=== PATIENT | male | born 1975 | race Caucasian/White ===

== ENCOUNTER 2019-08-19 17:53 | Outpatient (CLI) | payer BC, SELFPAY ==
--- NOTE | 2019-08-19 | XR_ITS ---
WS: [id number] RIGHT TIBIA-FIBULA 2 VIEWS HISTORY: RIGHT LEG INJURY COMPARISON: None available. No fracture, dislocation or joint abnormality. Fragmented tibial tubercle with no adjacent inflammatory changes. This is not an acute process. There is mild inflammatory soft tissue swelling over the proximal tibia. XR/XR tibia fibula RT 2V [id number] IMPRESSION: Soft tissue edema over the proximal tibia with no fracture.
== END 2019-08-19 17:54 | disposition home or self-care (01) ==
LOC: RADOUTREAD 08-20 11:04
PROVIDERS: Family Provider Family Medicine; PCP Family Medicine; Visit Provider Nurse Practitioner
DX: S89.91XA Unspecified injury of right lower leg, initial encounter (principal); W22.8XXA Striking against or struck by other objects, initial encounter; R60.9 Edema, unspecified

== ENCOUNTER → 2020-08-26 09:56 | Outpatient (BNVA) | payer BC, SELFPAY | PROVIDERS: Family Provider Family Medicine; PCP Family Medicine; Referring Provider Family Medicine; Visit Provider Orthopaedic Surgery | DX: M54.9 Dorsalgia, unspecified (principal); M47.892 Other spondylosis, cervical region | CPT/HCPCS: 72050 ==

== ENCOUNTER 2020-09-13 17:14 | Outpatient (CLI) | payer BC, SELFPAY ==
--- NOTE | 2020-09-13 17:30 | MR_ITS ---
WS: [id number] MRI CERVICAL SPINE NONCONTRAST HISTORY: M50.90 - Cervical disc disorder, unspecified, unspecified cervical region COMPARISON: 01/06/2018 Technique: Multiplanar, multisequence noncontrast imaging of the cervical spine. Mild straightening of the normal cervical lordosis. Posterior alignment is normal. No fractures or ma rrow edema. Mild disc desiccation throughout the cervical spine. Signal within the cervical cord is normal. Visualized posterior fossa is unremarkable. Craniocervical junction, C1 and C2 relationship, odontoid process and soft tissues are normal. C2-C3: Normal. C3-C4: Mild annular disc bulging with a shallow central disc protrusion and small foraminal osteophyt es. Very mild encroachment upon the ventral thecal sac. No significant stenosis. C4-C5: Moderate annular disc bulging and mild osteophytic ridging. Small central disc protrusion with foraminal osteophytes. There is mild central stenosis. No foraminal stenosis. C5-C6: Moderate annular disc bulging and osteophytic ridging. More focal proximal disc osteophyte com plex on the RIGHT. Moderate central and moderate bilateral foraminal stenosis, RIGHT greater than LEF T. C6-C7: Diffuse annular disc bulging and osteophytic ridging. Small central disc protrusion with encro achment upon the ventral thecal sac. Mild central stenosis with mild bilateral foraminal stenosis. C7-T1: LEFT foraminal osteophyte causing mild encroachment upon the nerve root. Paraspinal soft tissue are normal. MR/MR cervical spin wo con* [id number] IMPRESSION: 1. Moderate central and bilateral foraminal stenosis, RIGHT greater than LEFT at C5-6. 2. Mild central and bilateral foraminal stenosis at C6-7. 3. Areas of stenosis are very similar to the prior study from 01/06/2018 withou t obvious progression. Stenoses due to combination of disc and osteophyte disea se.
== END 2020-09-13 17:15 | disposition home or self-care (01) ==
LOC: RADSHAW 17:17
PROVIDERS: PCP Family Medicine; Visit Provider Orthopaedic Surgery
DX: M50.90 Cervical disc disorder, unspecified, unspecified cervical region (principal); M48.02 Spinal stenosis, cervical region
CPT/HCPCS: 72141

== ENCOUNTER → 2020-10-03 08:04 | Outpatient (BNVA) | payer BC, SELFPAY | PROVIDERS: PCP Family Medicine; Referring Provider Orthopaedic Surgery; Visit Provider Specialist | DX: G56.03 Carpal tunnel syndrome, bilateral upper limbs (principal); G56.23 Lesion of ulnar nerve, bilateral upper limbs; M47.22 Other spondylosis with radiculopathy, cervical region; R20.2 Paresthesia of skin; R20.0 Anesthesia of skin; Z87.891 Personal history of nicotine dependence | CPT/HCPCS: 95886; 95910; 99202 ==

== ENCOUNTER → 2020-10-12 15:21 | Outpatient (BNVA) | payer BC, SELFPAY | PROVIDERS: PCP Family Medicine; Referring Provider Orthopaedic Surgery; Visit Provider Specialist | DX: G56.23 Lesion of ulnar nerve, bilateral upper limbs (principal); G56.03 Carpal tunnel syndrome, bilateral upper limbs | CPT/HCPCS: 73110 ==

== ENCOUNTER → 2020-10-20 13:07 | Outpatient (BNVA) | payer BC, SELFPAY | PROVIDERS: PCP Family Medicine; Visit Provider Specialist | DX: Z20.828 Contact with and (suspected) exposure to other viral communicable diseases (principal) | CPT/HCPCS: 87635 ==

== ENCOUNTER 2020-10-25 06:39 | Day surgery (SDC) | payer BC, SELFPAY ==
[2020-10-24 17:38] VITALS: BMI 35.3
[2020-10-25] VITALS (8 sets, daily range): BP systolic 111–152; BP diastolic 85–108; PULSE 80–102; RESP 12–18; TEMP 36.3–36.9; O2SAT 96–100
--- NOTE | 2020-10-25 07:10 | W.PM.OPSUD ---
Surgery/Procedure H&P Update DATE OF PROCEDURE: October 25, 2020 DATE H&P PERFORMED: 10/12/20 H&P UPDATE INFORMATION: I have reviewed H&P completed within last 30 days, I have examined patient prior to procedure and No changes to prior documentation PREOP DIAGNOSIS: Right carpal tunnel syndrome PLANNED PROCEDURE: Operation Date: 10/25/20 08:20 Proposed Procedures p Right Carpal Tunnel Release 14917 G56.02(Not Applicable) - Mariama Garcia MD Related Problem List Diagnoses (1) Carpal tunnel syndrome on right:
[2020-10-25] MEDS: sodium chloride 0.9% 1,000 ML 30 ML IV (07:53)
[2020-10-25] MEDS: CELEcoxib 200 mg Capsule 400 MG PO (07:57)
--- NOTE | 2020-10-25 07:59 | ANES.PREANE2 ---
Pre-Anesthetic Assessment Pre-Anesthetic Assessment: Height/Weight: Height 1.88 m Weight 124.738 kg Temp Pulse Resp BP Pulse Ox 97.4 F L 102 H 18 116/95 96 10/25/20 07:33 10/25/20 07:33 10/25/20 07:33 10/25/20 07:33 10/25/20 07:33 Preop Diagnosis: Right carpal tunnel syndrome Proposed Procedure: Operation Date: 10/25/20 08:20 Proposed Procedures p Carpal Tunnel Release [id number] G56.02(Not Applicable) - Mariama Garcia MD Was Beta Hermelinda taken within 24 hours: N/A Was Clonidine taken within 24 hours: N/A Last intake: Intake Last Liquid Date 10/25/20 Last Liquid Time 18:00 Last Solid Date 10/25/20 Last Solid Time 21:30 Social: Social History: No alcohol and No tobacco Exam: Pre-Anes Outpt Exam: alert, oriented x 3, clear to auscultation bilaterally and regular rate & rhythm Airway: Submandibular: WNL Cervical ROM: WNL MP: 2 Dentition: Full Pulmonary: Pulmonary: Sleep apnea CV/HEM: CV/HEM: HTN Metabolic: Metabolic: Morbid obesity and Thyroid Musc/skel: Musc/skel: Lower Back Pain Comments: Chronic pain/nerve stimulator Neuropsych: Neuropsych: Anxiety and Neuropathy Anesthetic Plan: ASA status: 3 Anesthesia: MAC and Regional (specify below) (Monet wong) Risk of > 500 ml blood loss (7ml/kg in children): No Meds/Allergies Current Medications: Current Medications Generic Name Dose Route Start Last Admin Trade Name Freq PRN Reason Stop Dose Admin Sodium Chloride 1,000 mls @ 30 ml s/hr 10/25/20 07:30 10/25/20 07:53 Sodium Chloride 0.9% IV 10/26/20 07:29 30 mls/hr .Q24H FERMIN Administration PFSH Anesthesia PFSH: Medical History Hypertension Hypothyroid Surgical History History of hand surgery left hand 2000 Previous back surgery L4/5 Social History Smoking and tobacco status: former smoker Alcohol intake: current Alcohol intake frequency: holidays/special occasions only Data Anesthesia Cardiac Studies: No Data to Display
--- NOTE | 2020-10-25 08:21 | W.PM.OPSUD ---
Surgery/Procedure H&P Update DATE OF PROCEDURE: October 25, 2020 DATE H&P PERFORMED: 10/12/20 H&P UPDATE INFORMATION: I have reviewed H&P completed within last 30 days, I have examined patient prior to procedure and No changes to prior documentation PREOP DIAGNOSIS: Right carpal tunnel syndrome PLANNED PROCEDURE: Operation Date: 10/25/20 08:20 Proposed Procedures p Carpal Tunnel Release 39594 G56.02(Not Applicable) - Mariama Garcia MD Related Problem List Diagnoses (1) Carpal tunnel syndrome on right:
--- NOTE | 2020-10-25 09:31 | P.OP_ITS ---
Operative Report Date of procedure: October 25, 2020 Pre-op Diagnosis: Right carpal tunnel syndrome Post-op diagnosis: same Post-op Findings: Severe compression across the carpal canal Procedure Done: Right Carpal Tunnel Release Specimens removed/disposition: None Pathology: none sent Surgeon: Mariama Garcia Anesthesia: MAC (With Monet block) Estimated blood loss (mL): 5 Tourniquet time (min): 44 Tourniquet time: At 250 mmHg IV fluids (mL): 600 Urine output (mL): 0 Urine output: No Sanchez Complications: None Findings: Anatomic findings consistent with carpal tunnel syndrome Condition: stable Disposition: PACU (Then to same-day surgery for discharge to home) Brief History: This 45-year-old gentleman presented with symptomatic complaints and electrodiagnostic studies consistent with carpal tunnel syndrome bilaterally. The right was worse than the left, we elected to proceed with right carpal tunnel release. Risks and complications were discussed. Consents were signed preoperatively. Questions were answered. Procedure: The patient was brought to the operating theater. The patient had a [place] block with MAC. The tourniquet was elevated to 250 mmHg for a total tourniquet time of 44 minutes. The patient was also given Ancef 2 g preoperatively. The arm was then prepped and draped with DuraPrep in usual fashion with the arm draped free. A surgical pause was performed. At the time, the surgical pause, we confirmed the site and side of surgery. We also confirmed the patient's identity, appropriate and timely administration of preoperative antibiotics and preoperative surgical markings. An incision was then made along the thenar crease. The incision crossed the wrist joint in a curvilinear fashion. Dissection continued through skin and soft tissues using a scalpel. The palmaris longus was identified along with the tra nsverse carpal ligament. Each of these was released carefully to avoid injury to the median nerve. We were able to dissect gently into the carpal canal which was noted to be quite tight with significant compression across the median nerve. Transverse carpal ligament was quite thickened. The nerve was visualized and was an hourglass shape with purplish discoloration. The canal was subsequently palpated to assure there was no bony encroachment upon the canal. There was a quite thickened fibrous tissue within the canal, and this was opened longitudinally as well. The canal was then palpated distally and proximally to assure that my small finger was passed easily without impingement. Finding this to be so, attention was directed to closure. The wound was irrigated with ropivacaine plain. It was then closed with 3-0 nylon in an interrupted mattress fashion. Sterile dressing was then placed consisting of Xeroform gauze, fluffed fluffs, sterile soft roll, a volar splint, and an James wrap. The tourniquet was released after 44 minutes. There were no complications. There were no specimens. The procedure was well tolerated. Plan is the patient will be discharged home. Associated Problem List Diagnoses (1) Carpal tunnel syndrome on right:
--- NOTE | 2020-10-25 09:37 | SUR.PHASEI ---
PT DOES NOT AWAKE TO TOUCH, GOOD RESP EFFORT WITH ORAL AIRWAY IN PLACE, VSS IV PATENT RT HAND DRESSING D/I ELEVATED ON CHEST, DISTAL FINGERS PINK WARM WITH CAP REFILL LESS THAN 3 SECONDS.
--- NOTE | 2020-10-25 09:46 | SUR.PHASEI ---
PT AWAKES ORAL AIRWAY OUT, GOOD RESP NOTED PT VERBALLY DENIES PAIN AND NAUSEA. PT ON RA TRIAL.
--- NOTE | 2020-10-25 14:09 | ANE.PACU2 ---
Inpatient post-anesthesia follow up: Airway intact: Yes Vital signs: Temperature 97.3 F Pulse Rate 80 Respiratory Rate 18 Blood Pressure 130/99 Pulse Oximetry 97 Oxygen Delivery Me thod Room Air Oxygen Flow Rate 8 Fraction of Inspir ed Oxygen Hydration adequate: Yes Nausea and vomiting: No Pain level: 1 Mental status: Baseline
== END 2020-10-25 10:27 | disposition home or self-care (01) ==
PROVIDERS: PCP Family Medicine; Visit Provider Specialist
PROC: (CPT 64721; principal; 2020-10-25 08:10)
DX: G56.01 Carpal tunnel syndrome, right upper limb (principal); G47.30 Sleep apnea, unspecified; I10 Essential (primary) hypertension; E66.01 Morbid (severe) obesity due to excess calories; Z68.35 Body mass index [BMI] 35.0-35.9, adult; E03.9 Hypothyroidism, unspecified; Z87.891 Personal history of nicotine dependence
CPT/HCPCS: 64721; 96365; J0131; J0690; J2250; J2704; J3490; J7030

== ENCOUNTER → 2020-11-07 15:38 | Outpatient (BNVA) | payer BC, SELFPAY | PROVIDERS: PCP Family Medicine; Visit Provider Specialist | DX: G56.03 Carpal tunnel syndrome, bilateral upper limbs (principal) | CPT/HCPCS: 87635 ==

== ENCOUNTER 2020-11-11 06:51 | Day surgery (SDC) | payer BC, SELFPAY ==
[2020-11-10 12:12] VITALS: BMI 34.8
[2020-11-11] VITALS (10 sets, daily range): BP systolic 125–163; BP diastolic 100–116; PULSE 75–96; RESP 12–20; TEMP 36.3–36.6; O2SAT 97–100
--- NOTE | 2020-11-11 07:31 | ANES.PREANE2 ---
Pre-Anesthetic Assessment Pre-Anesthetic Assessment: Height/Weight: Height 1.89 m Weight 124.738 kg Temp Pulse Resp BP Pulse Ox 97.4 F L 96 16 151/110 97 11/11/20 07:15 11/11/20 07:15 11/11/20 07:15 11/11/20 07:15 11/11/20 07:15 Preop Diagnosis: Left carpal tunnel syndrome Proposed Procedure: Operation Date: 11/11/20 08:25 Proposed Procedures p left Carpal Tunnel Release 26690 G56.00(Left) - Mariama Garcia MD Familial anesthetic complications: none Was Beta Hermelinda taken within 24 hours: N/A Was Clonidine taken within 24 hours: N/A Last intake: Intake Last Liquid Date 11/10/20 Last Liquid Time 21:30 Last Solid Date 11/10/20 Last Solid Time 17:00 Social: Social History: No alcohol and No tobacco Exam: Pre-Anes Outpt Exam: alert, oriented x 3, clear to auscultation bilaterally and regular rate & rhythm Airway: Cervical ROM: WNL MP: 3 Dentition: Full Pulmonary: Pulmonary: Sleep apnea CV/HEM: CV/HEM: HTN Metabolic: Metabolic: Morbid obesity and Thyroid Neuropsych: Neuropsych: Neuropathy Anesthetic Plan: ASA status: 3 Anesthesia: MAC and Regional (specify below) (mohan block) Risk of > 500 ml blood loss (7ml/kg in children): No PFSH Anesthesia PFSH: Medical History Hypertension Hypothyroid Surgical History History of hand surgery left hand 2001 Previous back surgery L4/5 Social History Smoking and tobacco status: former smoker Alcohol intake: current Alcohol intake frequency: holidays/special occasions only Data Anesthesia Cardiac Studies: No Data to Display
[2020-11-11] MEDS: sodium chloride 0.9% 1,000 ML 30 ML IV (07:34)
[2020-11-11] MEDS: CELEcoxib 200 mg Capsule 400 MG PO (07:35)
[2020-11-11] MEDS: acetaminophen 1,000 MG/100 ML PIGGYBACK 400 MG IV (07:38)
--- NOTE | 2020-11-11 09:04 | P.PCN_ITS ---
PACU note PACU note: VSS, Good respiratory effort, report to UNDERWATER TRAPPER Post-Anesthesia Exam: awake
--- NOTE | 2020-11-11 09:04 | PM.PACU ---
PACU note PACU note: VSS, Good respiratory effort, report to LIDAR ANALYST Post-Anesthesia Exam: awake
--- NOTE | 2020-11-11 09:04 | PM.OP ---
Operative Report Date of procedure: November 11, 2020 Pre-op Diagnosis: Left carpal tunnel syndrome Post-op diagnosis: same Post-op Findings: Deformity of the median nerve and thickened transverse carpal ligament Procedure Done: Left carpal tunnel release Specimens removed/disposition: None Pathology: none sent Surgeon: Mariama Garcia Journeyman Carpenter: None Anesthesia: MAC (With [place] block) Estimated blood loss (mL): 5 Tourniquet time (min): 30 Tourniquet time: At 250 mmHg IV fluids (mL): 400 Complications: None Findings: Significant compression across the median nerve through the carpal canal with a thickened transverse carpal ligament Condition: stable Disposition: PACU (Then to same-day surgery for discharge to home) Brief History: This 45-year-old gentleman presented today for left carpal tunnel release. He previously had undergone right carpal tunnel release, and he has done well following this. He wishes to proceed today. Risks and complications were discussed with him, and questions were answered. The patient agreed with the surgical plan. Procedure: The patient was brought to the operating theater. The patient had a [place] block with MAC. The tourniquet was elevated to 250 mmHg for a total tourniquet time of 30 minutes. The patient was also given Ancef 2 g preoperatively. The arm was then prepped and draped with DuraPrep in usual fashion with the arm draped free. A surgical pause was performed. At the time, the surgical pause, we confirmed the site and side of surgery. We also confirmed the patient's identity, appropriate and timely administration of preoperative antibiotics and preoperative surgical markings. An incision was then made along the thenar crease. The incision crossed the wrist joint in a curvilinear fashion. Dissection continued through skin and soft tissues using a scalpel. The palmaris longus was identified along with the transverse carpal ligament. Each of these was released carefully to avoid injury to the median nerve. We were able to dissect gently into the carpal canal which was noted to be quite tight with significant compression across the median nerve. The nerve was visualized. The canal was subsequently palpated to assure there was no bony encroachment upon the canal. There was a quite thickened fibrous tissue within the canal, and this was opened longitudinally as well. The canal was then palpated distally and proximally to assure that my small finger was passed easily without impingement. Finding this to be so, attention was directed to closure. The wound was irrigated with ropivacaine plain. It was then closed with 3-0 nylon in an interrupted mattress fashion. Sterile dressing was then placed consisting of Xeroform gauze, fluffed fluffs, sterile soft roll, a volar splint, and an James wrap. The tourniquet was released after 30 minutes. There were no complications. There were no specimens. The procedure was well tolerated. Plan is the patient will be discharged home. Associated Problem List Diagnoses (1) Carpal tunnel syndrome, left:
--- NOTE | 2020-11-11 18:00 | ANE.PACU2 ---
Inpatient post-anesthesia follow up: Airway intact: Yes Vital signs: Temperature 98 F Pulse Rate 75 Respiratory Rate 16 Blood Pressure 147/102 Pulse Oximetry 98 Oxygen Delivery Me thod Room Air Oxygen Flow Rate 8 Fraction of Inspir ed Oxygen Hydration adequate: Yes Nausea and vomiting: No Pain level: 1 Mental status: Baseline
== END 2020-11-11 10:13 | disposition home or self-care (01) ==
PROVIDERS: PCP Family Medicine; Visit Provider Specialist
PROC: (CPT 64721; principal; 2020-11-11 08:05)
DX: G56.02 Carpal tunnel syndrome, left upper limb (principal); G47.30 Sleep apnea, unspecified; I10 Essential (primary) hypertension; E66.01 Morbid (severe) obesity due to excess calories; Z68.34 Body mass index [BMI] 34.0-34.9, adult; E03.9 Hypothyroidism, unspecified; Z87.891 Personal history of nicotine dependence
CPT/HCPCS: 64721; 96365; J0690; J2250; J2704; J3490; J7030

== ENCOUNTER 2022-06-25 13:13 | Outpatient (CLI) | payer BC, SELFPAY ==
--- NOTE | 2022-06-25 13:22 | CT_ITS ---
WS: [id number] CT ABDOMEN AND PELVIS WITH CONTRAST HISTORY: CHANGE IN BOWEL HABITS/MELENA/EPIGASTRIC PAIN/FECAL ABNORMAL TECHNIQUE: Imaging performed of the abdomen and pelvis with IV contrast. Single phase imaging of the abdomen. Coronal and sagittal reformats are submitted. All CT scans at [facility] use at [address] one of these dose optimization techniques: automated exposure control; mA and/or kV adjustment per patient size (includes targeted exams where dose is matched to clinical indication); or iterative re construction. IV CONTRAST: Omnipaque 350; 95 mL IV. Oral contrast: Yes. DLP: 1435.38 mGy.cm COMPARISON: None available. Lower thorax: Lung bases are clear. Heart is normal size. No hiatal hernia. Liver/biliary system: Normal size with no intrahepatic dilatation. Gallbladder: Status post cholecystectomy. Pancreas: Normal size pancreas and pancreatic duct. No adjacent inflammation. Spleen: Normal size spleen with granulomata. Adrenal glands: Normal. Right kidney: Normal size kidney. Too small to characterize hypodensity posterior upper pole cortex. No obstruction. Left kidney: No obstruction. There are several cortical hypodensities. Some of these are too small to characterize. The largest measuring 1.0 cm is a cyst. There is no obstruction or solid mass. Aorta: Normal. Lymphadenopathy: None. Free fluid: None. GI tract: Normal appearance of the stomach. No small bowel obstruction or wall thickening. Normal deana endix. No GI tract obstruction. No: Lesions. Numerous diverticula in the descending and sigmoid colon but no evidence for acute inflammation. Abdominal wall: Unremarkable abdominal wall. No hernia. Pelvis: Normal appearance of the urinary bladder. No free fluid or adenopathy. Nurse stimulator devic e is noted along the posterior RIGHT pelvis. The electrodes are inserted in the presacral space on th e RIGHT. Bones: Bilateral L5 pars defects. CT/CT abdomen pelvis w con* [id number] IMPRESSION: 1. Normal appendix. 2. Moderate diverticular disease involving the descending and sigmoid colon wi th no evidence for acute diverticulitis. 3. Prior cholecystectomy. 4. No GI tract obstruction. 5. No adenopathy or ascites.
[2022-06-25] MEDS: iohexol 350 mg/mL 500 mL Btl (per mL) PO (14:58)
[2022-06-25] MEDS: iohexol 350 mg/mL 500 mL Btl (per mL) IV (14:58)
== END 2022-06-25 13:14 | disposition home or self-care (01) ==
PROVIDERS: PCP Family Medicine; Visit Provider Surgery
DX: R19.4 Change in bowel habit (principal); R10.13 Epigastric pain; K92.1 Melena; K57.30 Diverticulosis of large intestine without perforation or abscess without bleeding
CPT/HCPCS: 74177; Q9967

== ENCOUNTER → 2022-07-19 11:28 | Outpatient (BNVA) | payer BC, SELFPAY | PROVIDERS: PCP Family Medicine; Referring Provider Family Medicine; Visit Provider Anesthesiology Pain Medicine | DX: M54.16 Radiculopathy, lumbar region (principal) | CPT/HCPCS: 72110 ==

== ENCOUNTER → 2023-04-11 15:36 | Outpatient (BNVA) | payer BC, SELFPAY | PROVIDERS: PCP Family Medicine; Visit Provider Student in an Organized Health Care Education/Training Program | DX: G56.03 Carpal tunnel syndrome, bilateral upper limbs (principal); G56.23 Lesion of ulnar nerve, bilateral upper limbs | CPT/HCPCS: 73110 ==

== ENCOUNTER → 2023-04-25 15:21 | Outpatient (BNVA) | payer BC, SELFPAY | PROVIDERS: PCP Family Medicine; Visit Provider Orthopaedic Surgery | DX: M51.16 Intervertebral disc disorders with radiculopathy, lumbar region (principal); M47.816 Spondylosis without myelopathy or radiculopathy, lumbar region; M48.062 Spinal stenosis, lumbar region with neurogenic claudication; M51.34 Other intervertebral disc degeneration, thoracic region | CPT/HCPCS: 72110 ==

== ENCOUNTER 2023-05-08 09:01 | Day surgery (SDC) | payer BC, SELFPAY ==
[2023-05-03 06:56] LABS: Basophils # 0.1 10^3/uL (0.0-0.1); Basophils % 0.7 %; Eosinophils # 0.8 10^3/uL (0.0-0.8); Eosinophils % 9.5 %; Hematocrit 45.6 % (37-53); Lymphocytes # 2.4 10^3/uL (0.8-4.8); Lymphocytes % 27.2 %; Mean Corpuscular Hemoglobin 30.4 pg (27-33); Mean Corpuscular Volume 89.4 fl (82-101); Mean Platelet Volume 8.9 fL (7.4-10.4); Monocytes # 0.7 10^3/uL (0.2-0.9); Monocytes % 8.5 %; Neutrophils # 4.71 10^3/uL (1.8-7.7); Neutrophils % 53.8 %; Nucleated Red Blood Cells % 0 %; Platelet Count 209 10^3/cmm (157-399); Red Cell Distribution Width 12.3 % (12.1-15.1); White Blood Count 8.75 10^3/uL (3.29-11.43)
[2023-05-03 07:11] LABS: Alanine Aminotransferase 30 U/L (0-41); Albumin Level 4.6 g/dL (3.5-5.2); Alkaline Phosphatase 94 U/L (40-130); Anion Gap 13.1 (5-19); Aspartate Amino Transferase 26 U/L (0-40); Blood Urea Nitrogen 15 mg/dL (6-20); Calcium 9.2 mg/dL (8.5-10.5); Carbon Dioxide 28 mmol/L (22-29); Chloride 105 mmol/L (98-107); Globulin 2.5 g/dL (1.3-4.6); Glomerular Filtration Rate 89.3 mL/min (90-130); Glucose 93 mg/dL (65-115); Osmolality Calculated 295 mOsm/kg (285-295); Potassium 4.1 mmol/L (3.5-5.1); Sodium 142 mmol/L (136-145); Total Bilirubin 0.4 mg/dL (0.15-1.2); Total Protein 7.1 g/dL (6.6-8.7)
[2023-05-03 08:13] LABS: Add Urine Microscopic? YES; Bilirubin Urine Neg (Negative); Blood Urine Neg (Negative); Glucose Urine UA Norm (Normal); Ketones Urine Negative (Negative); Leukocyte Esterase Urine Trace (Negative); Nitrate Urine Negative (Negative); Protein Urine Neg (Negative); Specific Gravity, Urine 1.015 (1.005-1.030); Urine Appearance Clear (CLEAR); Urine Color Yellow (Yellow); Urobilinogen Urine Norm (Negative); pH Urine 5 (5-7)
[2023-05-03 08:14] LABS: Add Urine Culture? No; Bacteria Urine TRACE /hpf; Mucus Urine 1+ /hpf; RBC Urine 0-4 /hpf (0-2); Squamous Epithelial Cell Urine 0-4 /hpf (0-5); Transitional Epi Cells Urine 0-4 /hpf; WBC Urine 15-25 /hpf (0-5)
[2023-05-07 14:00] VITALS: BMI 36.6
[2023-05-08] VITALS (8 sets, daily range): BP systolic 139–170; BP diastolic 94–115; PULSE 82–88; RESP 13–20; TEMP 36.1–36.2; O2SAT 95–97
[2023-05-08] MEDS: sodium chloride 0.9% 1,000 ML 30 ML IV (09:25)
[2023-05-08] MEDS: ketorolac 30 mg/mL INJ IVP (09:27)
[2023-05-08] MEDS: acetaminophen 1,000 MG/100 ML PIGGYBACK 400 MG IV (09:28)
--- NOTE | 2023-05-08 09:56 | W.PM.OPSUD ---
Surgery/Procedure H&P Update DATE OF PROCEDURE: May 08, 2023 DATE H&P PERFORMED: 04/11/23 H&P UPDATE INFORMATION: I have reviewed H&P completed within last 30 days, I have examined patient prior to procedure and No changes to prior documentation PREOP DIAGNOSIS: Left Carpal Tunnel syndrome, left cubital tunnel syndrome PRIMARY INDICATION FOR PROCEDURE: Left carpal tunnel syndrome, left cubital tunnel syndrome PLANNED PROCEDURE: Operation Date: 05/08/23 10:40 Proposed Procedures p left carpal tunnel release [id number] left cubital tunnel release and possible ulnar nerve transposition. 42244,G56.23,G56.03(Left) - DO flor Willett Cubital Tunnel Release(Left) - DO flor Willett PossUlnar Nerve Transposition(Left) - Chalino Landry DO
[2023-05-08] MEDS: ceFAZolin 2,000 MG in sodium chloride 0.9% (plus) 50 ML 100 MG IV (10:20)
--- NOTE | 2023-05-08 11:11 | P.ANESASSM_ITS ---
Pre-Anesthetic Assessment Height/Weight: Height 1.88 m Weight 113.398 kg Temp Pulse Resp BP Pulse Ox O2 Del Method 97.2 F L 83 18 170/115 95 Room Air 05/08/23 09:20 05/08/23 09:20 05/08/23 09:20 05/08/23 09:20 05/08/23 09:20 05/08/23 09:20 Preop Diagnosis: Left Carpal Tunnel syndrome, left cubital tunnel syndrome Operation Date: 05/08/23 10:40 Proposed Procedures p left carpal tunnel release [id number] left cubital tunnel release and possible ulnar nerve transposition. 71174,G56.23,G56.03(Left) - Chalino Frantz, DO s Cubital Tunnel Release(Left) - Chalino Frantz, DO s PossUlnar Nerve Transposition(Left) - Chalino [place], DO Familial anesthetic complications: none Was Beta Hermelinda taken within 24 hours: N/A Was Clonidine taken within 24 hours: N/A Last intake: Intake Last Liquid Date 05/07/23 Last Liquid Time 22:00 Last Solid Date 05/07/23 Last Solid Time 22:00 Social No alcohol and No tobacco Exam alert, oriented x 3, clear to auscultation bilaterally and regular rate & rhythm Airway Submandibular: within normal limits Cervical ROM: within normal limits Mallampati: Class II CV/HEM Hypertension Metabolic Diabetes Mellitus, Morbid Obesity and Thyroid Disease Musc/skel Lower Back Pain and Osteoarthritis/DJD Neuropsych Anxiety, Depression and Neuropathy Anesthetic Plan ASA status: 3 Anesthesia: General Medications/Allergies Home Medications Medication Instructions Recorded Confirmed Last Taken Type alprazolam 1 mg tablet 1 mg PO TID PRN Anxiety 08/26/20 05/08/23 05/08/23 History cyclobenzaprine 10 mg tablet 10 mg PO TID 08/26/20 05/08/23 05/08/23 History duloxetine 30 mg capsule,delayed 30 mg PO DAILY 08/26/20 05/08/23 05/08/23 History release famotidine 20 mg tablet 20 mg PO DAILY 08/26/20 05/08/23 05/08/23 History levothyroxine 100 mcg capsule 100 mcg PO DAILY 08/26/20 05/08/23 05/08/23 History lisinopril 20 1 tab PO DAILY 08/26/20 05/07/23 05/07/23 History mg-hydrochlorothiazide 12.5 mg tablet silodosin 4 mg capsule (Rapaflo) 4 mg PO DAILY 08/26/20 05/08/23 05/08/23 History COCK UP SPLINT #2 ea 10/12/20 04/25/23 Unknown Rx celecoxib 200 mg capsule (Celebrex) 200 mg PO BID #30 caps 10/25/20 05/08/23 11/10/20 Rx mirabegron 25 mg tablet,extended 25 mg PO DAILY 11/11/20 05/08/23 05/08/23 History release 24 hr (Myrbetriq) tizanidine 4 mg capsule 4 mg PO TID PRN muscle spasticity 03/27/23 05/08/23 05/08/23 Rx #90 caps tramadol 50 mg tablet 50 mg PO DIRECTED 05/07/23 05/08/23 Unknown History Allergies Allergy/AdvReac Type Severity Reaction Status Date / Time hydrocodone Allergy Mild makes him Verified 04/25/23 15:20 feel crazy Opioids - Morphine Analogues Allergy Mild headache Verified 04/25/23 15:20 Current Medications Generic Name Dose Route Start Last Admin Trade Name Freq PRN Reason Stop Dose Admin Sodium Chloride 1,000 mls @ 30 mls/hr 05/08/23 09:15 05/08/23 09:25 Sodium Chloride 0.9% IV 05/09/23 09:14 30 mls/hr .Q24H FERMIN Administration PFSH Anesthesia Medical History Hypertension Hypothyroid Surgical History History of hand surgery left hand 2000 Previous back surgery L4/5 Social History Smoking and tobacco status: former smoker Alcohol intake: current Alcohol intake frequency: holidays/special occasions only Data Anesthesia 05/03/23 06:47 05/03/23 06:47 Cardiac Studies: No Data to Display
[2023-05-08] MEDS: lidocaine-epi 1% 20 mL INJ INJECTION (11:22)
[2023-05-08] MEDS: ROPivacaine 0.5% SDV 30 mL 25 MG INJECTION (11:23)
--- NOTE | 2023-05-08 11:41 | P.BOP_ITS ---
Date of Procedure: 05/08/2023 Surgeon: Chalino Landry DO Substation Operator(s): Jose Landry PA-C Procedure(s) performed: Left carpal tunnel release, left cubital tunnel release Findings of the procedure(s): Left carpal tunnel syndrome contrast median nerve at wrist, left cubital tunnel syndrome entrapped ulnar nerve at elbow, procedure went as planned Estimated blood loss: 10 mL Specimen(s) removed: None Post-operative diagnosis: Left carpal tunnel syndrome, left cubital tunnel syndrome
--- NOTE | 2023-05-08 11:43 | PM.OP ---
Operative Report Date of procedure: May 08, 2023 Surgeon: Chalino Landry DO Procedure: Preoperative diagnosis: Left carpal tunnel syndrome, left cubital tunnel syndrome Postop Diagnosis: Same Procedure done: Left carpal tunnel release Left?cubital tunnel tunnel release (ulnar nerve decompression at elbow) Surgeon: Chalino Landry DO Dining Service Inspector: Jose Landry PA-C PA was necessary for assistance in this case with assistance of retraction and protection of neurovascular structures as well as to assist in holding arm positioning for to help assist with dissection as well as assistance in wound closure Estimated blood loss: 10 mL Tourniquet? 33 minutes IV fluids: 600 mL Complications: None Findings: See operative report narrative Condition: stable Disposition: same day Brief History: Patient's been seen and worked up in the outpatient setting and findings consistent with preoperative diagnosis.? Patient has left carpal tunnel syndrome as well as left?cubital tunnel syndrome which has been worked up in the outpatient setting has physical exam findings consistent with this. Patient had a prior left carpal tunnel surgery that had done well for over a year and now subsequently returned. He does have more pronounced ulnar nerve symptoms. Patient's failed conservative treatment.? As result through shared decision making agreed to proceed with?left carpal tunnel and left?cubital tunnel release we talked about treatment options as far as nonoperative and operative intervention.? Understands risk benefits complication alternatives surgical nonsurgical treatment options.? Understanding his risks he agrees to proceed with surgical intervention. Understanding these risks he agrees to proceed with surgery.? Consent obtained in office. Procedure: Patient seen evaluate in the preoperative holding area.? Consent was reviewed and signed with patient.? Correct extremity marked.? Patient seen evaluated by anesthesia department once cleared for surgery was then taken back to the operative suite placed in supine position all bony prominences well-padded patient properly secured to bed.? Left upper extremity placed onto armboard.? Nonsterile tourniquet applied left upper arm.? Patient then underwent anesthesia per the anesthesia department.? Patient's left upper extremity was then prepped and draped in standard orthopedic fashion.? Final timeout performed.? Patient received appropriate preoperative antibiotics. Esmarch was used exsanguinate the left upper extremity.? Tourniquet was insufflated to 250 mmHg. I started with the carpal tunnel release first.? I made a standard open carpal tunnel release starting with the distal most extent in the palm at the Sargent's cardinal line and the incision line was made in line with the fourth ray and ended just distal to the wrist crease.? Sharp scalpel incision was made through skin and subcutaneous tissue I then utilizing self retainer then began to dissect with dissection scissors split longitudinally the palmar fascia.? Next I then utilizing my nutrition assistant Gama retractors subsequently utilizing scalpel feathered through the palmaris brevis as well as through the transverse carpal ligament distally.? Once I encountered the floor of the transverse carpal ligament and entered into the carpal tunnel I then switched to dissection scissors.? Carefully released the distal extent of the transverse carpal ligament to the palmar fat.? Care was to protect the recurrent branch and not injured this during this part of the case.? Next I then placed a [place] underneath the transverse carpal ligament proximally to protect the nerve in the carpal tunnel contents.? I utilized a nasal speculum to spread all the soft tissue off top of the transverse carpal ligament with direct visualization of approximately. And then I subsequently under loupe magnification utilize my dissection scissors to release the transverse carpal ligament into the antebrachial fascia under direct visualization with care to keep my scissors with a curved ulnarly away from the palmar cutaneous branch.? The transverse carpal was then completely decompressed proximally and a [place] was then placed both distally and proximally throughout the carpal tunnel and had complete decompression of the nerve.? The nerve did appear to have hourglass shape as it went through the carpal tunnel.? With significant irritation noted around the nerve.? No masses were noted within the contents of the carpal tunnel.? This completed the carpal tunnel release and then I subsequently irrigated the wound bed and placed a wet Ray-Lesly into the incision for later closure. Next marked out the landmarks of the right elbow of the medial epicondyle and olecranon and made a curvilinear incision following the course of the ulnar nerve at the medial aspect of the elbow.? Sharp scalpel incision was made through skin and subcutaneous tissue.? Next I switched to Littler dissection scissors and spread in plane of the medial antebrachial cutaneous nerve branching which was protected throughout this part of the dissection.? Then I directly came down over the fascia and identified the 2 heads of the FCU fascia and split this right in the middle and subsequently identified my ulnar nerve distally.? This was then completely released distally under direct visualization and loupe magnification.? Once the nerve was then identified I then subsequently tracked this proximally and released this through Smiley's ligament as well as complete decompression of the nerve proximally all the way past the intermuscular septum.? The nerve was completely released and decompressed both proximally and distally.? Ulnar nerve neurolysis performed and completed both proximally and distally with dissection scissors.? I then took the elbow through range of motion and there was no instability or subluxating of the ulnar nerve.? This completed?cubital tunnel release.? ?Next the wound bed was thoroughly irrigated.? Tourniquet was deflated.? Hemostasis was satisfactory at the?cubital tunnel release surgery site. I then inspected the carpal tunnel incision and this was found to have satisfactory hemostasis and all this was maintained through bipolar electrocautery.? At this point time I sequentially closed?cubital tunnel site with 3-0 Vicryl suture in a running horizontal mattress nylon stitch.? ? The carpal tunnel release surgery was then closed in standard interrupted mattress fashion.? Dressing was Xeroform 4 x 4's ABD Curlex soft roll and an James wrap has a bulky soft dressing. Patient was then awakened from anesthesia and taken to PACU in stable condition. Disposition: Patient taken to PACU in stable condition recovering well.? Patient will receive appropriate discharge instructions as well as pain medication postoperatively.? We will follow-up with me in the office in 2 weeks.? Patient understands agrees with current plan.? All questions answered.? He understands if any questions or concerns and contact the office for follow-up appointment..
--- NOTE | 2023-05-08 12:04 | PM.PACU ---
PACU note Narrative: Patient is a 48-year-old male with known left carpal tunnel release and left cubital tunnel release. Patient transferred to PACU in stable condition. Pain is well controlled. Dressing on hand and elbow is dry and in place. Patient's fingers are warm and well-perfused. normal cap refill under 2 seconds. Due to patient still being under anesthesia. I was unable to do any further exam on patient at that time. Exam: unarousable Disposition: discharged
--- NOTE | 2023-05-08 16:43 | ANE.PACU2 ---
Inpatient post-anesthesia follow up: Airway intact: Yes Vital signs: Temperature 97.0 F Pulse Rate 82 Respiratory Rate 16 Blood Pressure 166/106 Pulse Oximetry 96 Oxygen Delivery Me thod Room Air Oxygen Flow Rate 6 Fraction of Inspir ed Oxygen Hydration adequate: Yes Nausea and vomiting: No Pain level: 2 Mental status: Baseline
== END 2023-05-08 13:00 | disposition home or self-care (01) ==
PROVIDERS: Orthopaedic Surgery; PCP Family Medicine; Visit Provider Student in an Organized Health Care Education/Training Program
PROC: (CPT 64721; principal; 2023-05-08 10:30)
PROC: (CPT 64718; 2023-05-08 10:30)
DX: G56.02 Carpal tunnel syndrome, left upper limb (principal); G56.22 Lesion of ulnar nerve, left upper limb; I10 Essential (primary) hypertension; E11.9 Type 2 diabetes mellitus without complications; E66.01 Morbid (severe) obesity due to excess calories; Z68.32 Body mass index [BMI] 32.0-32.9, adult; Z87.891 Personal history of nicotine dependence
CPT/HCPCS: 64718; 64721; 36415; 80053; 81001; 85025; J0131; J0690; J1100; J1885; J2405; J2704; J2795; J3010; J7030

== ENCOUNTER 2023-05-27 09:59 | Day surgery (SDC) | payer BC, SELFPAY ==
[2023-05-27] VITALS (11 sets, daily range): BP systolic 117–167; BP diastolic 88–115; PULSE 79–98; RESP 15–25; TEMP 36.1–36.2; O2SAT 92–99; BMI 37.2
--- NOTE | 2023-05-27 | XR_ITS ---
WS: [id number] INTRAOPERATIVE TECHNIQUE: 2 Spot fluoroscopic images for intraoperative purposes. FLUOROSCOPY TIME: 17.2 seconds CLINICAL INFORMATION: L3-4; L4-5 decompression, or pic COMPARISON: None. FINDINGS: Localization marker overlying the L3-4 and L4-5 interspace dorsally IMPRESSION: Images obtained for intraoperative purposes.
--- NOTE | 2023-05-27 10:17 | W.PM.OPSUD ---
Surgery/Procedure H&P Update DATE OF PROCEDURE: May 27, 2023 DATE H&P PERFORMED: 05/21/23 H&P UPDATE INFORMATION: I have reviewed H&P completed within last 30 days, I have examined patient prior to procedure and No changes to prior documentation PREOP DIAGNOSIS: Lumbar stenosis PLANNED PROCEDURE: Operation Date: 05/27/23 11:30 Proposed Procedures p Lumbar Spine Decompression Lumbar Decompression(Not Applicable) - Mehrdad Baez DO
--- NOTE | 2023-05-27 10:48 | ANES.PREANE2 ---
Pre-Anesthetic Assessment Height/Weight: Height 1.88 m Weight 131.542 kg Temp Pulse Resp BP Pulse Ox O2 Del Method 97.0 F L 95 19 H 167/115 99 Room Air 05/27/23 10:05/27/23 10:05/27/23 10:23 05/27/23 10:23 05/27/23 10:05/27/23 10:23 Preop Diagnosis: Lumbar stenosis Operation Date: 05/27/23 11:30 Proposed Procedures p Lumbar Spine Decompression Lumbar Decompression(Not Applicable) - Mehrdad Baez, DO Familial anesthetic complications: None Was Beta Hermelinda taken within 24 hours: N/A Was Clonidine taken within 24 hours: N/A Last intake: Intake Last Liquid Date 05/26/23 Last Liquid Time 23:00 Last Solid Date 05/26/23 Last Solid Time 23:00 Social No alcohol and No tobacco Exam alert, oriented x 3, clear to auscultation bilaterally and regular rate & rhythm Airway Dentition: full Comments: Comments: large neck CV/HEM Hypertension Metabolic Morbid Obesity and Thyroid Disease 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 bladder peripheral neuropathy Anesthetic Plan ASA status: 3 Anesthesia: General Risk of > 500 ml blood loss (7ml/kg in children): No Medications/Allergies Home Medications Medication Instructions Recorded Confirmed Last Taken Type alprazolam 1 mg tablet 1 mg PO TID PRN Anxiety 08/26/20 05/27/23 05/27/23 History duloxetine 30 mg capsule,delayed 30 mg PO DAILY 08/26/20 05/27/23 05/27/23 History release famotidine 20 mg tablet 20 mg PO DAILY 08/26/20 05/24/23 05/24/23 History levothyroxine 100 mcg capsule 100 mcg PO DAILY 08/26/20 05/27/23 05/27/23 History lisinopril 20 1 tab PO DAILY 08/26/20 05/27/23 05/26/23 History mg-hydrochlorothiazide 12.5 mg tablet silodosin 4 mg capsule (Rapaflo) 4 mg PO DAILY 08/26/20 05/27/23 05/27/23 History COCK UP SPLINT #2 ea 10/12/20 05/24/23 Unknown Rx mirabegron 25 mg tablet,extended 25 mg PO DAILY 11/11/20 05/27/23 05/26/23 History release 24 hr (Myrbetriq) tizanidine 4 mg capsule 4 mg PO TID PRN muscle spasticity 03/27/23 05/27/23 05/26/23 Rx #90 caps tramadol 50 mg tablet 50 mg PO DIRECTED 05/07/23 05/27/23 05/22/23 History sulfamethoxazole 800 1 tab PO BID 7 days #14 tabs 05/21/23 05/27/23 05/27/23 Rx mg-trimethoprim 160 mg tablet (Bactrim DS) oxycodone 5 mg capsule 5 mg PO Q4H PRN Pain 05/27/23 05/27/23 05/27/23 History Allergies Allergy/AdvReac Type Severity Reaction Status Date / Time hydrocodone Allergy Mild makes him Verified 05/24/23 11:38 feel crazy morphine Allergy ADR-Headach Verified 05/24/23 11:34 e PFSH Anesthesia Medical History Hypertension Hypothyroid Surgical History History of hand surgery left hand 2000 Previous back surgery L4/5 Social History Smoking and tobacco/nicotine status: former use of tobacco/nicotine Alcohol intake: current Alcohol intake frequency: holidays/special occasions only Data Anesthesia Cardiac Studies: No Data to Display
[2023-05-27] MEDS: sodium chloride 0.9% 1,000 ML 30 ML IV (10:53)
[2023-05-27] MEDS: ceFAZolin 1,000 MG in sodium chloride 0.9% (plus) 50 ML 100 MG IV (11:24)
[2023-05-27] MEDS: ceFAZolin 2,000 MG in sodium chloride 0.9% (plus) 50 ML 100 MG IV (11:24)
[2023-05-27] MEDS: lidocaine-epi 2% 20 mL INJ INJECTION (12:28)
--- NOTE | 2023-05-27 13:03 | PM.OP ---
Operative Report Date of procedure: May 27, 2023 Pre-op diagnosis: Lumbar stenosis with neurogenic claudication Post-op diagnosis: same Procedure done: 1. L3-4 laminectomy with partial facetectomies 2. L4-5 laminectomies partial facetectomies Surgeon: Mehrdad Baez DO Family And Divorce Legal Assistant: Liu Barrera Family And Divorce Legal Assistant: The surgical aide, Liu Barrera, TANNER was needed for his expertise under the microscope. He was important and necessary throughout the procedure to complete in a safe and timely manner. He assisted with patient positioning prepping and draping tissue retraction suctioning of the operative field protection of the dural sac and tissue closure Estimated blood loss (mL): 25 Procedure: 1. L3-4 laminectomy with partial facetectomies 2. L4-5 laminectomies partial facetectomies Patient is brought to the operative suite. After undergoing anesthesia they are placed in the prone position. All areas of impingement are well padded. Patient is then prepped and draped in the normal sterile fashion. A skin incision is made over the L4/5 level. This is confirmed under c-arm guidance. A series of dilators are passed and the tubular retractor is docked on the L4 lamina. A bovie is used to clear the soft tissue off the lamina and the L 4/5 facet joint. A high speed la is then used to perform the laminectomy and take down the medial aspect of the L 4/5 facet joint. A kerrison rongeure was then used to take down the remaining lamina and smooth the edged of the laminectomy up to the point where the ligamentum flavum attaches. Attention was then brought to the medial aspect of the facet joint. The remaining medial aspect of the superior and inferior aspect of the facet joint were taken down with the kerrison from the pedicle of L4 to L 5. The facet joint had significant hypertrophy. Attention was then brought to the Ligamentum Flavum. The ligament was taken down from the lamina of L4 to L5 and out medially to the remaining facet joint. The ligament was thick. The dura was then exposed. The dura was in good repair. The L4 nerve was then traced with a curette out the L4/5 foramen and found to be adequately decompressed. The L5 nerve was traced with a curette around the L5 pedicle. The lateral recess was opened with a kerrison helping to further decompress the L5 nerve. The tubular retractor was then tilted to the contralateral side. The bovie was used to take down the soft tissue on the spinous process. The high speed la was used to take down the spinous process and then the contralateral lamina of L4. The kerrison rongeur was used to take down the remaining lamina to the point where the ligamentum flavum attached and the ligamentum flavum was taken down from L4 to L5. The kerrison rongeur was then used to reach across and take down the medial aspect of the contralateral L4/5 facet joint.The currete was used to trace the contralateral L4 nerve out the L4/5 foramen to make sure it was decompressed adequatesly and the L5 was traced around the L5 pedicle. The lateral recess was opened further with the kerrison to ensure the L5 is adequately decompressed. Wound is then irrigated copiously with saline and surgiflo is used to stop any bleeding. The tubular retractor is removed A skin incision is made over the L3/4 level. This is confirmed under c-arm guidance. A series of dilators are passed and the tubular retractor is docked on the L3 lamina. A bovie is used to clear the soft tissue off the lamina and the L 3/4 facet joint. A high speed la is then used to perform the laminectomy and take down the medial aspect of the L 3/4 facet joint. A kerrison rongeure was then used to take down the remaining lamina and smooth the edged of the laminectomy up to the point where the ligamentum flavum attaches. Attention was then brought to the medial aspect of the facet joint. The remaining medial aspect of the superior and inferior aspect of the facet joint were taken down with the kerrison from the pedicle of L3 to L 4. The facet joint had significant hypertrophy. Attention was then brought to the Ligamentum Flavum. The ligament was taken down from the lamina of L3 to L4 and out medially to the remaining facet joint. The ligament was thick. The dura was then exposed. The dura was in good repair. The L3 nerve was then traced with a curette out the L3/4 foramen and found to be adequately decompressed. The L4 nerve was traced with a curette around the L4 pedicle. The lateral recess was opened with a kerrison helping to further decompress the L4 nerve. The tubular retractor was then tilted to the contralateral side. The bovie was used to take down the soft tissue on the spinous process. The high speed la was used to take down the spinous process and then the contralateral lamina of L3. The kerrison rongeur was used to take down the remaining lamina to the point where the ligamentum flavum attached and the ligamentum flavum was taken down from L3 to L4. The kerrison rongeur was then used to reach across and take down the medial aspect of the contralateral L3/4 facet joint.The currete was used to trace the contralateral L3 nerve out the L3/4 foramen to make sure it was decompressed adequatesly and the L4 was traced around the L4 pedicle. The lateral recess was opened further with the kerrison to ensure the L4 is adequately decompressed. Wound is then irrigated copiously with saline and surgiflo is used to stop any bleeding. The tubular retractor is removed and the wound is closed with vicryl and monocryl suture. Glue is then used to protect the wound. A sterile dressing is then placed. Patient was then placed in the supine position and transferred to the PACU in stable condition.
[2023-05-27] MEDS: oxyCODONE 5 mg IR Tab/Cap 10 MG PO (14:07)
--- NOTE | 2023-05-27 14:40 | ANE.PACU2 ---
Inpatient post-anesthesia follow up: Airway intact: Yes Vital signs: Temperature 97.1 F Pulse Rate 84 Respiratory Rate 18 Blood Pressure 125/89 Pulse Oximetry 96 Oxygen Delivery Me thod Room Air Oxygen Flow Rate 3 Fraction of Inspir ed Oxygen Hydration adequate: Yes Nausea and vomiting: No Pain level: 1 Mental status: Baseline
== END 2023-05-27 14:41 | disposition home or self-care (01) ==
PROVIDERS: PCP Family Medicine; Visit Provider Orthopaedic Surgery
PROC: (CPT 63005; principal; 2023-05-27 11:20)
DX: M48.062 Spinal stenosis, lumbar region with neurogenic claudication (principal); I10 Essential (primary) hypertension; E66.01 Morbid (severe) obesity due to excess calories; Z68.37 Body mass index [BMI] 37.0-37.9, adult
CPT/HCPCS: 63047; 63048; 72020; 76000; J0131; J0690; J1100; J2250; J2371; J2405; J2704; J3010; J3490; J7030

== ENCOUNTER 2023-07-18 13:38 | Day surgery (SDC) | payer BC, SELFPAY ==
[2023-07-18] VITALS (9 sets, daily range): BP systolic 116–165; BP diastolic 72–117; PULSE 74–165; RESP 14–18; TEMP 36.1–36.8; O2SAT 94–97
[2023-07-18] MEDS: scopolamine 1.5 Patch 1 PATCH TRANSDERMA (14:00)
[2023-07-18] MEDS: ketorolac 30 mg/mL INJ IVP (14:00)
[2023-07-18] MEDS: acetaminophen 1,000 MG/100 ML PIGGYBACK 400 MG IV (14:01)
[2023-07-18] MEDS: sodium chloride 0.9% 1,000 ML 30 ML IV (14:01)
--- NOTE | 2023-07-18 14:14 | W.PM.OPSUD ---
Surgery/Procedure H&P Update DATE OF PROCEDURE: July 18, 2023 DATE H&P PERFORMED: 06/13/23 H&P UPDATE INFORMATION: I have examined patient prior to procedure and No changes to prior documentation CHANGES TO PREVIOUS DOCUMENTATION: No change in HPI from office visit on 06/13/2023 PREOP DIAGNOSIS: Right carpal tunnel syndrome, right cubital tunnel syndrome PRIMARY INDICATION FOR PROCEDURE: Right carpal tunnel syndrome, right cubital tunnel syndrome PLANNED PROCEDURE: Operation Date: 07/18/23 15:15 Proposed Procedures p Right Carpal Tunnel Release(Right) - DO flor Willett Right Cubital Tunnel Release(Right) - DO flor Willett Possible Right Ulnar Nerve Transposition(Right) - Chalino Landry DO
--- NOTE | 2023-07-18 14:15 | W.PM.OPSFHP ---
Same Day Surgery H&P Indication for Procedure/HPI DATE OF PROCEDURE: July 18, 2023 CHIEF COMPLAINT/INDICATIONFOR SURGICAL PROCEDURE: Right carpal tunnel syndrome, right cubital tunnel syndrome PREOP DIAGNOSIS: Right carpal tunnel syndrome, right cubital tunnel syndrome PLANNED PROCEDURE: Operation Date: 07/18/23 15:15 Proposed Procedures p Right Carpal Tunnel Release(Right) - Chalino Landry DO s Right Cubital Tunnel Release(Right) - Chalino Landry DO s Possible Right Ulnar Nerve Transposition(Right) - Chalino Landry DO Medications/Allergies* Home Medications Medication Instructions Recorded Confirmed Type alprazolam 1 mg tablet 1 mg PO TID PRN Anxiety 08/26/20 07/17/23 History duloxetine 30 mg capsule,delayed 30 mg PO DAILY 08/26/20 07/17/23 History release famotidine 20 mg tablet 20 mg PO DAILY 08/26/20 07/17/23 History levothyroxine 100 mcg capsule 100 mcg PO DAILY 08/26/20 07/17/23 History lisinopril 20 1 tab PO DAILY 08/26/20 07/17/23 History mg-hydrochlorothiazide 12.5 mg tablet silodosin 4 mg capsule (Rapaflo) 4 mg PO DAILY 08/26/20 07/17/23 History mirabegron 25 mg tablet,extended 25 mg PO DAILY 11/11/20 07/17/23 History release 24 hr (Myrbetriq) tramadol 50 mg tablet 50 mg PO DIRECTED 05/07/23 07/17/23 History Allergies/Adverse Reactions Allergy/AdvReac Type Severity Reaction Status Date / Time hydrocodone Allergy Mild makes him Verified 07/18/23 13:45 feel crazy morphine Allergy ADR-Headach Verified 07/18/23 13:45 e Current Medications: Generic Name Dose Route Start Last Admin Trade Name Freq PRN Reason Stop Dose Admin Sodium Chloride 1,000 mls @ 30 mls/hr 07/18/23 13:45 07/18/23 14:01 Sodium Chloride 0.9% IV 07/19/23 13:44 30 mls/hr .Q24H FERMIN Administration Pertinent History/Comorbid Conditions* Medical History (Updated 05/23/23 @ 13:17 by DEYANIRA Cook) Hypothyroid Hypertension Surgical History (Updated 06/18/23 @ 09:22 by Liu Barrera PA-C) History of hand surgery left hand 2000 Previous back surgery L4/5 Social History Smoking and tobacco/nicotine status: former use of tobacco/nicotine Alcohol intake: current Alcohol intake frequency: holidays/special occasions only Pertinent Exam Findings alert, oriented x 3, operative site marked and procedure specific exam findings Right hand Hand exam-positive Tinel's and positive Phalen's test, positive median nerve compression test, has some thenar atrophy and thenar muscle weakness. Full range of motion in fingers and wrist and fingers are warm and well-perfused with normal cap refill under 2 seconds. Radial pulse 2+, intrinsic muscle weakness noted. Right Elbow exam-positive Tinel's test over cubital tunnel Recommendations Surgery/Procedure today Other Plans: Plan to proceed to the OR today for right carpal tunnel release, right cubital tunnel release with possible ulnar nerve transposition. Understands ins and outs procedure risk benefits complication alternatives for surgery and elects to proceed with surgical intervention. All questions answered. Coding Level of Care Code Acute Code for Chg Tiara
[2023-07-18 14:41] LABS: Alanine Aminotransferase 39 U/L (0-41); Albumin Level 4.3 g/dL (3.5-5.2); Alkaline Phosphatase 102 U/L (40-130); Anion Gap 14.9 (5-19); Aspartate Amino Transferase 36 U/L (0-40); Blood Urea Nitrogen 11 mg/dL (6-20); Carbon Dioxide 26 mmol/L (22-29); Chloride 102 mmol/L (98-107); Globulin 2.7 g/dL (1.3-4.6); Glomerular Filtration Rate 70.9 mL/min (90-130); Glucose 84 mg/dL (65-115); Osmolality Calculated 287 mOsm/kg (285-295); Potassium 3.9 mmol/L (3.5-5.1); Sodium 139 mmol/L (136-145); Total Bilirubin 0.4 mg/dL (0.15-1.2)
[2023-07-18] MEDS: ceFAZolin 2,000 MG in sodium chloride 0.9% (plus) 50 ML 100 MG IV (15:26)
--- NOTE | 2023-07-18 15:30 | P.ANESASSM_ITS ---
Pre-Anesthetic Assessment Height/Weight: Height 1.88 m Weight 129.274 kg Temp Pulse Resp BP Pulse Ox O2 Del Method 97 F L 107 H 18 165/117 97 Room Air 07/18/23 13:42 07/18/23 13:42 07/18/23 13:42 07/18/23 13:42 07/18/23 13:42 07/18/23 13:53 Preop Diagnosis: Right carpal tunnel syndrome, right cubital tunnel syndrome Operation Date: 07/18/23 15:15 Proposed Procedures p Right Carpal Tunnel Release(Right) - Chalino Refugio, DO s Right Cubital Tunnel Release(Right) - Chalino Frantz, DO s Possible Right Ulnar Nerve Transposition(Right) - Chalino Frantz, DO Familial anesthetic complications: none Was Beta Hermelinda taken within 24 hours: N/A Was Clonidine taken within 24 hours: N/A Last intake: Intake Last Liquid Date 07/18/23 Last Liquid Time 08:00 Last Solid Date 07/18/23 Last Solid Time 04:00 Social No alcohol and No tobacco Exam alert, oriented x 3, clear to auscultation bilaterally and regular rate & rhythm Airway Submandibular: within normal limits Cervical ROM: within normal limits Mallampati: Class II Dentition: full CV/HEM Hypertension GI Gastroesophageal Reflux Disease Metabolic Morbid Obesity and Thyroid Disease Musc/skel Lower Back Pain and Osteoarthritis/DJD Neuropsych Anxiety, Depression and Neuropathy Anesthetic Plan ASA status: 3 Anesthesia: General Medications/Allergies Home Medications Medication Instructions Recorded Confirmed Last Taken Type alprazolam 1 mg tablet 1 mg PO TID PRN Anxiety 08/26/20 07/17/23 07/17/23 History duloxetine 30 mg capsule,delayed 30 mg PO DAILY 08/26/20 07/17/23 07/18/23 History release famotidine 20 mg tablet 20 mg PO DAILY 08/26/20 07/17/23 07/18/23 History levothyroxine 100 mcg capsule 100 mcg PO DAILY 08/26/20 07/17/23 07/18/23 History lisinopril 20 1 tab PO DAILY 08/26/20 07/17/23 07/17/23 History mg-hydrochlorothiazide 12.5 mg tablet silodosin 4 mg capsule (Rapaflo) 4 mg PO DAILY 08/26/20 07/17/23 07/18/23 History COCK UP SPLINT #2 ea 10/12/20 07/16/23 Unknown Rx mirabegron 25 mg tablet,extended 25 mg PO DAILY 11/11/20 07/17/23 07/18/23 History release 24 hr (Myrbetriq) tramadol 50 mg tablet 50 mg PO DIRECTED 05/07/23 07/17/23 07/18/23 History sulfamethoxazole 800 1 tab PO BID 7 days #14 tabs 05/21/23 07/17/23 07/18/23 Rx mg-trimethoprim 160 mg tablet (Bactrim DS) tizanidine 4 mg tablet See Rx Instructions .Route 07/05/23 07/17/23 07/18/23 Rx .COMPLEX #90 tabs ondansetron 4 mg disintegrating 4 mg PO Q8H PRN nausea and 07/18/23 Unknown Rx tablet vomiting 3 days #9 tabs Allergies Allergy/AdvReac Type Severity Reaction Status Date / Time hydrocodone Allergy Mild makes him Verified 07/18/23 13:45 feel crazy morphine Allergy ADR-Headach Verified 07/18/23 13:45 e Current Medications Generic Name Dose Route Start Last Admin Trade Name Freq PRN Reason Stop Dose Admin Sodium Chloride 1,000 mls @ 30 mls/hr 07/18/23 13:45 07/18/23 14:01 Sodium Chloride 0.9% IV 07/19/23 13:44 30 mls/hr .Q24H FERMIN Administration PFSH Anesthesia Medical History Hypothyroid Hypertension Surgical History History of hand surgery left hand 2001 Previous back surgery L4/5 Social History Smoking and tobacco/nicotine status: former use of tobacco/nicotine Alcohol intake: current Alcohol intake frequency: holidays/special occasions only Data Anesthesia 07/18/23 14:03 BMP 07/18/23 14:03 Sodium 139 Potassium 3.9 Chloride 102 Carbon Dioxide 26 BUN 11 Creatinine 1.1 Glucose 84 Calcium 9.0 Liver Function 07/18/23 Range/Units 14:03 Total Bilirubin 0.4 (0.15-1.2) mg/dL AST 36 (0-40) U/L ALT 39 (0-41) U/L Alkaline Phosphatase 102 (40-130) U/L Albumin 4.3 (3.5-5.2) g/dL Cardiac Studies: 2 No Data to Display
[2023-07-18] MEDS: ceFAZolin 1,000 MG in sodium chloride 0.9% (plus) 50 ML 100 MG IV (15:45)
--- NOTE | 2023-07-18 16:20 | P.BOP_ITS ---
Date of Procedure: 07/18/2023 Surgeon: Chalino Landry DO Supervisor [employer](s): None Procedure(s) performed: Right carpal tunnel release, right cubital tunnel release (ulnar nerve decompression at the elbow) Findings of the procedure(s): Patient found to have right carpal tunnel syndrome right cubital tunnel syndrome patient underwent release of both the carpal tunnel and cubital tunnel and procedure went as planned with no complications Estimated blood loss: 5 mL Specimen(s) removed: None Post-operative diagnosis: Recurrent right carpal tunnel syndrome, right cubital tunnel syndrome
--- NOTE | 2023-07-18 16:20 | PM.OP ---
Operative Report Date of procedure: July 18, 2023 Surgeon: Chalino Landry DO Procedure: Preoperative diagnosis: Right carpal tunnel syndrome Right cubital tunnel syndrome Postop Diagnosis: Same Procedure done: Right carpal tunnel release Right?cubital?tunnel tunnel release (ulnar nerve decompression at elbow) Surgeon: Chalino Landry DO Estimated blood loss: 5 mL Tourniquet? 24 minutes IV fluids: 600 mL Complications: None Findings: See operative report narrative Condition: stable Disposition: same day Brief History: Patient's been seen and worked up in the outpatient setting and findings consistent with preoperative diagnosis.? Patient has right carpal tunnel syndrome as well as right?cubital?tunnel syndrome which has been worked up in the outpatient setting has physical exam findings consistent with this as well as confirmatory nerve conduction/EMG nerve conduction study consistent with diagnosis.? Patient's failed conservative treatment.? As result through shared decision making agreed to proceed with? right carpal tunnel and right?cubital?tunnel release we talked about treatment options as far as nonoperative and operative intervention.? Understands risk benefits complication alternatives surgical nonsurgical treatment options.? Understanding his risks he agrees to proceed with surgical intervention. Understanding these risks he agrees to proceed with surgery.? Consent obtained in office. Procedure: Patient seen evaluate in the preoperative holding area.? Consent was reviewed and signed with patient.? Correct extremity marked.? Patient seen evaluated by anesthesia department once cleared for surgery was then taken back to the operative suite placed in supine position all bony prominences well-padded patient properly secured to bed.? right upper extremity placed onto armboard.? Nonsterile tourniquet applied right upper arm.? Patient then underwent anesthesia per the anesthesia department.? Patient's right upper extremity was then prepped and draped in standard orthopedic fashion.? Final timeout performed.? Patient received appropriate preoperative antibiotics. Esmarch was used exsanguinate the right upper extremity.? Tourniquet was insufflated to 250 mmHg. I started with the carpal tunnel release first.? I made a standard open carpal tunnel release starting with the distal most extent in the palm at the Sargent's cardinal line and the incision line was made in line with the fourth ray and ended just distal to the wrist crease.? Sharp scalpel incision was made through skin and subcutaneous tissue I then utilizing self retainer then began to dissect with dissection scissors split longitudinally the palmar fascia.? Next I then utilizing my access services assistant Kasdan retractors subsequently utilizing scalpel feathered through the palmaris brevis as well as through the transverse carpal ligament distally.? Once I encountered the floor of the transverse carpal ligament and entered into the carpal tunnel I then switched to dissection scissors.? Carefully released the distal extent of the transverse carpal ligament to the palmar fat.? Care was to protect the recurrent branch and not injured this during this part of the case.? Next I then placed a Lancaster underneath the transverse carpal ligament proximally to protect the nerve in the carpal tunnel contents.? And then I subsequently under loupe magnification utilize my dissection scissors to release the transverse carpal ligament into the antebrachial fascia under direct visualization with care to keep my scissors with a curved ulnarly away from the palmar cutaneous branch.? The transverse carpal was then completely decompressed proximally and a Lancaster was then placed both distally and proximally throughout the carpal tunnel and had complete decompression of the nerve.? The nerve did appear to have hourglass shape as it went through the carpal tunnel.? With significant irritation noted around the nerve.? No masses were noted within the contents of the carpal tunnel.? This completed the carpal tunnel release and then I subsequently irrigated the wound bed and placed a wet Ray-Lesly into the incision for later closure. Next marked out the landmarks of the right elbow of the medial epicondyle and olecranon and made a curvilinear incision following the course of the ulnar nerve at the medial aspect of the elbow.? Sharp scalpel incision was made through skin and subcutaneous tissue.? Next I switched to Littler dissection scissors and spread in plane of the medial antebrachial cutaneous nerve branching which was protected throughout this part of the dissection.? Then I directly came down over the fascia and identified the 2 heads of the FCU fascia and split this right in the middle and subsequently identified my ulnar nerve distally.? This was then completely released distally under direct visualization and loupe magnification.? Once the nerve was then identified I then subsequently tracked this proximally and released this through Smiley's ligament as well as complete decompression of the nerve proximally all the way past the intermuscular septum.? The nerve was completely released and decompressed both proximally and distally.? Ulnar nerve neurolysis performed and completed both proximally and distally with dissection scissors.? I then took the elbow through range of motion and there was no instability or subluxating of the ulnar nerve.? This completed?cubital?tunnel release.? ?Next the wound bed was thoroughly irrigated.? Tourniquet was deflated.? Hemostasis was satisfactory at the?cubital?tunnel release surgery site. I then inspected the carpal tunnel incision and this was found to have satisfactory hemostasis and all this was maintained through bipolar electrocautery.? At this point time I sequentially closed?cubital?tunnel site with 3-0 Vicryl suture in a running horizontal mattress nylon stitch.? ? The carpal tunnel release surgery was then closed in standard interrupted mattress fashion.? Dressing was Xeroform 4 x 4's ABD Curlex soft roll and an James wrap has a bulky soft dressing. Patient was then awakened from anesthesia and taken to PACU in stable condition. Disposition: Patient taken to PACU in stable condition recovering well.? Patient will receive appropriate discharge instructions as well as pain medication postoperatively.? We will follow-up with me in the office in 2 weeks.? Patient understands agrees with current plan.? All questions answered.? He understands if any questions or concerns and contact the office for follow-up appointment..
[2023-07-18] MEDS: TRAMadol 50 mg Tablet PO (17:09)
--- NOTE | 2023-07-18 17:12 | ANE.PACU2 ---
Inpatient post-anesthesia follow up: Airway intact: Yes Vital signs: Temperature 97.2 F Pulse Rate 74 Respiratory Rate 18 Blood Pressure 141/100 Pulse Oximetry 95 Oxygen Delivery Me thod Room Air Oxygen Flow Rate Fraction of Inspir ed Oxygen Hydration adequate: Yes Nausea and vomiting: No Pain level: 2 Mental status: Baseline
== END 2023-07-18 17:27 | disposition home or self-care (01) ==
PROVIDERS: PCP Family Medicine; Visit Provider Student in an Organized Health Care Education/Training Program
PROC: (CPT 64721; principal; 2023-07-18 15:05)
PROC: (CPT 64718; 2023-07-18 15:05)
DX: G56.01 Carpal tunnel syndrome, right upper limb (principal); G56.21 Lesion of ulnar nerve, right upper limb; I10 Essential (primary) hypertension; K21.9 Gastro-esophageal reflux disease without esophagitis; E66.01 Morbid (severe) obesity due to excess calories; Z68.36 Body mass index [BMI] 36.0-36.9, adult; E03.9 Hypothyroidism, unspecified; Z87.891 Personal history of nicotine dependence
CPT/HCPCS: 64718; 64721; 80053; J0131; J0690; J1100; J1885; J2405; J2704; J3010; J7030

== ENCOUNTER 2023-10-01 11:55 | Outpatient (CLI) | payer BC, SELFPAY ==
--- NOTE | 2023-10-01 11:59 | CT_ITS ---
WS: [id number] CT ABDOMEN WITH AND WITHOUT CONTRAST, adrenal mass protocol. HISTORY: ABNORMAL CORTISOL Contiguous triple phase 2 mm axial imaging performed to the abdomen. Adrenal protocol utilized. Oral contrast has not been provided. Coronal and sagittal reformats are submitted. All CT scans at [facility] use at least one of these dose optimization techniques: automated exposure control; mA an d/or kV adjustment per patient size (includes targeted exams where dose is matched to clinical indica tion); or iterative reconstruction. IV CONTRAST: Omnipaque 350; 100 mL IV. Oral contrast: No DLP: 2860.58 mGy.cm COMPARISON: 08/25/2021 Lower thorax: Lung bases are clear. Heart is normal size. No hiatal hernia. Liver/biliary system: Hepatic steatosis. 1 liver is top normal size. No mass or bile duct dilatation. Normal portal vein. Gallbladder: Prior cholecystectomy. Pancreas: Normal size pancreas and pancreatic duct. No adjacent inflammation. Spleen: Normal size with granulomata. Adrenal glands: There is a very tiny, 5 mm nodule associated with the distal limb of the medial adren al gland. Hounsfield units on the noncontrast study are negative consistent with benign adenoma. Ther e is no additional mass. The LEFT adrenal gland is normal. There is no mass at the aortic bifurcation to suggest a pheochromocytoma. Right kidney: Cortical hypodensity measures 3 mm and is stable since 06/25/2022. Left kidney: Stable hypodensity in the mid LEFT renal cortex measuring 7 mm. Hounsfield units suggest this is also a cyst. There has been no increase in size since 06/25/2022. Aorta: Normal. Lymphadenopathy: None. Free fluid: None. GI tract: Unremarkable. Abdominal wall: Unremarkable abdominal wall. No hernia. Visualized osseous structures: Unremarkable. IMPRESSION: 1. RIGHT adrenal 5 mm nodule new since 06/25/2022. Hounsfield units are negative consistent with carlene ign adenoma. 2. Normal LEFT adrenal gland. 3. No pheochromocytoma at the aortic bifurcation. 4. Prior cholecystectomy. 5. Mild hepatic steatosis. 6. No adenopathy or ascites.
[2023-10-01] MEDS: iohexol 350 mg/mL 500 mL Btl (per mL) IV (12:28)
== END 2023-10-01 11:56 | disposition home or self-care (01) ==
LOC: RAD 11:56
PROVIDERS: PCP Family Medicine; Visit Provider Family Medicine
DX: R94.7 Abnormal results of other endocrine function studies (principal); E27.9 Disorder of adrenal gland, unspecified; Z90.49 Acquired absence of other specified parts of digestive tract; K76.0 Fatty (change of) liver, not elsewhere classified
CPT/HCPCS: 74170; Q9967

== ENCOUNTER 2023-10-29 14:33 | Outpatient (RCR) | payer BC, SELFPAY | END 2023-11-10 23:59 | disposition home or self-care (01) | LOC: SPT 14:33 | PROVIDERS: PCP Family Medicine; Visit Provider Orthopaedic Surgery | DX: M54.50 Low back pain, unspecified (principal); M54.2 Cervicalgia; G89.29 Other chronic pain | CPT/HCPCS: 97110; 97161 ==

== ENCOUNTER 2023-11-08 06:00 | Outpatient (CLI) | payer BC, SELFPAY | END 2023-11-08 23:59 | disposition home or self-care (01) | LOC: SPT 11-11 07:37 | PROVIDERS: PCP Family Medicine; Visit Provider Physician Assistant | DX: Z46.89 Encounter for fitting and adjustment of other specified devices (principal); M17.12 Unilateral primary osteoarthritis, left knee; M25.562 Pain in left knee | CPT/HCPCS: 97760; L1852 ==

== ENCOUNTER → 2023-11-08 09:41 | Outpatient (BNVA) | payer BC, SELFPAY | PROVIDERS: PCP Family Medicine; Visit Provider Student in an Organized Health Care Education/Training Program | DX: M17.12 Unilateral primary osteoarthritis, left knee | CPT/HCPCS: 73560; 73565 ==

== ENCOUNTER 2023-11-11 06:00 | Outpatient (RCR) | payer BC, SELFPAY | END 2023-12-10 23:59 | disposition home or self-care (01) | LOC: SPT 06:00 | PROVIDERS: PCP Family Medicine; Visit Provider Orthopaedic Surgery | DX: M54.50 Low back pain, unspecified (principal); M54.2 Cervicalgia; G89.29 Other chronic pain | CPT/HCPCS: 97110 ==

== ENCOUNTER → 2023-11-27 09:33 | Outpatient (BNVA) | payer BC, SELFPAY | PROVIDERS: PCP Family Medicine; Referring Provider Family Medicine; Visit Provider Internal Medicine | DX: E27.8 Other specified disorders of adrenal gland (principal); R79.89 Other specified abnormal findings of blood chemistry; I10 Essential (primary) hypertension | CPT/HCPCS: 36415; 82088; 84244 ==

== ENCOUNTER 2023-12-31 12:16 | Emergency (ER) | payer BC, SELFPAY ==
[2023-12-31 12:22] VITALS: BP 153/92; PULSE 107; RESP 16; TEMP 36.4; O2SAT 97
[2023-12-31 13:20] VITALS: BP 128/94; PULSE 93; RESP 17; O2SAT 94
[2023-12-31 13:37] VITALS: BP 117/85; PULSE 96; RESP 16; O2SAT 96
--- NOTE | 2023-12-31 13:44 | ECG_ITS ---
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 Measurements Intervals [place] Rate: 88 P: 148 MA: 144 QRS: -23 QRSD: 81 T: 150 QT: 331 QTc: 401 Interpretive Statements SINUS RHYTHM BORDERLINE LEFT AXIS DEVIATION [QRS AXIS < -20] MODERATE T-WAVE ABNORMALITY, CONSIDER LATERAL ISCHEMIA [-0.1+ mV T-WAVE IN I/aVL/V5/V6] Compared to ECG 01/06/2018 12:41:51 Possible ischemia now present T-wave abnormality still present Electronically Signed On 01-01-2024 0:24:38 CDT by Faith Case M.D. [id number]
--- NOTE | 2023-12-31 13:44 | ED_ITS ---
HPI - General Adult 2 General: Chief complaint: General Medical Stated complaint: body cramps, bladder problems, weakness Time Seen by Provider: 12/31/23 13:13 Source: patient and family Mode of arrival: ambulatory Limitations: no limitations History of Present Illness: Patient presents emergency department today accompanied by his mother for evaluation and treatment of acute worsening of chronic back and body pains. 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 It required IVIG for 5 days and was in a nursing facility for about a week to recover. He has continued to have weakness and musculoskeletal issues since that time. He has had multiple back surgeries and multiple rounds of nerve testing. He has had to have carpal tunnel and cubital tunnel treatments. He also received a bladder stimulator in 2021. Patient has been dealing with chronic muscle spasming and issues since 2011 but reports that more recently, they have gotten acutely worse. Patient states bladder spasming causing episodes of incontinence. He wears an adult diaper to bed. His neurologist had ordered a 5-day infusion of IVIG for him but, patient states he has not been contacted yet. He states that when he reached out to his doctor's office, he was instructed to come to the emergency department to see about getting his referral to infusion therapy pushed up. Review of Systems 2 General: Reports: 10 or more systems reviewed and unremarkable except in HPI and below PFSH ED 2 PFSH: Medical History Hypothyroid Hypertension Surgical History History of hand surgery left hand 2001 Previous back surgery L4/5 Family History Unknown Hypertension Social History Smoking and tobacco/nicotine status: former use of tobacco/nicotine Alcohol intake: current Alcohol intake frequency: holidays/special occasions only Physical Exam 2 Const: COMMON NORMALS: patient oriented x3, healthy appearing and alert O THER: Appears uncomfortable at all times. He is laying reclined in the bed and keeps his eyes closed. Appears to be fatigued just trying to answer questions. HENMT: COMMON NORMALS: normocephalic, atraumatic, hearing grossly normal bilaterally, Normal external nose present and moist oral mucous membranes H EAD & SCALP: normocephalic and atraumatic NOSE: Normal external nose present Eye: COMMON NORMALS: Equal, round and reactive pupils present, EOMs intact bilaterally and conjunctivae normal CONJUNCTIVA: Yes conjunctivae normal P UPIL: Yes Equal, round and reactive pupils present Neck/C-Spine: COMMON NORMALS: full ROM and no meningeal signs Resp: COMMON NORMALS: normal respiratory effort, No retractions and No use of accessory muscles Cardio: COMMON NORMALS: regular rate RATE: regular rate Back/Pelvis: COMMON NORMALS: thoraco-lumbar ROM normal Extremity: COMMON NORMALS: normal to inspection, full ROM, no joint enlargement and no calf tenderness GENERAL: Yes normal exam except as noted Neuro: COMMON NORMALS: patient oriented x3, CN's II-XII intact bilaterally, moves all extremities, no focal motor deficits and no sensory deficits noted SENSORIUM/ORIENTATION: Yes alert MENINGEAL SIGNS: Yes no meningeal signs Course 2 Vital Signs: Vital signs: Vital Signs Temperature 97.5 F L 12/31/23 12:22 Pulse Rate 96 12/31/23 15:00 Respiratory Rate 16 12/31/23 13:37 Blood Pressure 151/101 12/31/23 15:30 Pulse Oximetry 96 12/31/23 15:30 Oxygen Delivery Me thod Room Air 12/31/23 15:30 MDM - General Adult Medical Decision Making Patient presents with acute worsening of chronic musculoskeletal issues. After speaking to Dr. Green here in the emergency department, patient requires 5-day IVIG infusion per the IVIG order, he should be admitted and would recommend reaching out to neurology. I spoke to Dr. Bird who is on-call. Her recommendation was to contact the infusion center to request his infusion be scheduled and scheduled soon. After talking to Talya at the infusion center, she indicated that the issue is not scheduling him but his insurance approval of his specific IVIG medication. She reports that with insurance delays, it could be anywhere from 2 to 3 weeks to 2 to 3 months before his medication would even come in. I called back up to the neurology office and the patient's neurologist is currently out of town for 2 weeks. I was able to speak with Dr. Bird again. She states that unfortunately, there is not much else that they can do. Patient cannot take steroids as he is steroid free for 3 months to have cortisol testing and she also thinks that it would not help him much anyways. She mentioned that he might be able to benefit from home health or some physical therapy. Lab work is generally unremarkable but with a slight decrease in GFR with a minimal bump in CK. We provided him a liter of fluids to treat this. Discussed all conversations with both neurology and infusion to make him aware of the complications to getting him his IVIG therapy. He can call neurology to schedule follow-up appointment but, I will provide the referral for PT and home health should he choose to pursue this line of therapy. Patient voiced understanding. Differential Diagnosis DDx: Rhabdo, dehydration, electrolyte abnormality, chronic issues status post Guillain-Chavez? Lab Data 12/31/23 14:00 12/31/23 14:00 Laboratory Results WBC 10.39 10^3/uL (3.29-11.43) 12/31/23 14:00 RBC 5.30 10^6/uL (3.85-5.65) 12/31/23 14:00 Hgb 15.80 g/dL (11.27-16.99) 12/31/23 14:00 Hct 47.5 % (37-53) 12/31/23 14:00 MCV 89.6 fl (82-101) 12/31/23 14:00 MCH 29.8 pg (27-33) 12/31/23 14:00 MCHC 33.3 g/dL (30-55) 12/31/23 14:00 RDW 12.3 % (12.1-15.1) 12/31/23 14:00 Plt Count 252 10^3/cmm (157-399) 12/31/23 14:00 MPV 8.7 fL (7.4-10.4) 12/31/23 14:00 Neut % (Auto) 62.8 % 12/31/23 14:00 Lymph % (Auto) 23.7 % 12/31/23 14:00 [place] % (Auto) 8.7 % 12/31/23 14:00 Eos % (Auto) 4.1 % 12/31/23 14:00 Baso % (Auto) 0.5 % 12/31/23 14:00 Neut # (Auto) 6.53 10^3/uL (1.8-7.7) 12/31/23 14:00 Lymph # (Auto) 2.5 10^3/uL (0.8-4.8) 12/31/23 14:00 [place] # (Auto) 0.9 10^3/uL (0.2-0.9) 12/31/23 14:00 Eos # (Auto) 0.4 10^3/uL (0.0-0.8) 12/31/23 14:00 Baso # (Auto) 0.1 10^3/uL (0.0-0.1) 12/31/23 14:00 Nucleated RBC % (auto) 0 % 12/31/23 14:00 Nucleated RBCs # 0.0 /100WBC 12/31/23 14:00 Sodium 137 mmol/L (136-145) 12/31/23 14:00 Potassium 4.8 mmol/L (3.5-5.1) 12/31/23 14:00 Chloride 102 mmol/L (98-107) 12/31/23 14:00 Carbon Dioxide 22 mmol/L (22-29) 12/31/23 14:00 Anion Gap 17.8 (5-19) 12/31/23 14:00 BUN 22 mg/dL (6-20) H 12/31/23 14:00 Creatinine 0.9 mg/dL (0.7-1.2) 12/31/23 14:00 GFR Calculation 89.3 mL/min (90-130) L 12/31/23 14:00 Glucose 108 mg/dL (65-115) 12/31/23 14:00 Calculated Osmolality 288 mOsm/kg (285-295) 12/31/23 14:00 Lactic Acid 3.0 mmol/L (0.5-2.2) H 12/31/23 14:35 Calcium 9.8 mg/dL (8.5-10.5) 12/31/23 14:00 Total Bilirubin 0.4 mg/dL (0.15-1.2) 12/31/23 14:00 AST 57 U/L (0-40) H 12/31/23 14:00 ALT 75 U/L (0-41) H 12/31/23 14:00 Alkaline Phosphatase 127 U/L (40-130) 12/31/23 14:00 Creatine Kinase 558 U/L (39-308) H* 12/31/23 14:00 CK-MB (CK-2) Cancelled 12/31/23 14:00 CK-MB (CK-2) Rel Index Cancelled 12/31/23 14:00 Total Protein 8.1 g/dL (6.6-8.7) 12/31/23 14:00 Albumin 4.5 g/dL (3.5-5.2) 12/31/23 14:00 Globulin 3.6 g/dL (1.3-4.6) 12/31/23 14:00 Urine Color Dark yellow (Yellow) 12/31/23 14:28 Urine Appearance Sl cloudy (CLEAR) A 12/31/23 14: Urine pH 5 (5-7) 12/31/23 14:28 Ur Specific [place] 1.020 (1.005-1.030) 12/31/23 14:28 Urine Protein Trace (Negative) 12/31/23 14:28 Urine Glucose (UA) Norm (Normal) 12/31/23 14:28 Urine Ketones 1+ (Negative) H 12/31/23 14:28 Urine Blood Neg (Negative) 12/31/23 14:28 Urine Nitrate Negative (Negative) 12/31/23 14:28 Urine Bilirubin Neg (Negative) 12/31/23 14:28 Urine Urobilinogen Norm mg/dL (Negative) 12/31/23 14:28 Ur Leukocyte Esterase Negative (Negative) 12/31/23 14:28 Urine RBC 0-4 /hpf (0-2) H 12/31/23 14:28 Urine WBC 0-4 /hpf (0-5) H 12/31/23 14:28 Ur Squamous Epith Cells 0-4 /hpf (0-5) H 12/31/23 14:28 Ur Transition Epith Cell 0-4 /hpf 12/31/23 14:28 Amorphous Sediment Not Reportable 12/31/23 14:28 Urine Bacteria None /hpf (NONE) 12/31/23 14:28 Urine Mucus 1+ /hpf 12/31/23 14:28 No radiology studies performed this visit Discharge Plan Discharge Patient Disposition: Home Clinical Impression: Weakness, Paresthesia, Lumbar stenosis with neurogenic claudication, Abnormal cortisol level Condition: Stable Prescriptions: No Action levothyroxine 100 mcg capsule 100 mcg PO DAILY lisinopril-hydrochlorothiazide 20-12.5 mg tablet 1 tab PO DAILY famotidine 20 mg tablet 20 mg PO DAILY alprazolam 1 mg tablet 1 mg PO TID PRN (Reason: Anxiety) (DME) COCK UP SPLINT See Rx Instructions .Route .MEDSUPPLY Qty: 2 0RF Rx Instructions: As directed tizanidine 4 mg tablet See Rx Instructions .ROUTE .COMPLEX Qty: 90 5RF Dose Instruction: TAKE 1 TABLET BY MOUTH THREE TIMES DAILY NEEDED FOR muscle spasticity Rx Instructions: TAKE 1 TABLET BY MOUTH THREE TIMES DAILY NEEDED FOR muscle spasticity amlodipine 10 mg tablet 10 mg PO BID ciprofloxacin HCl [Cipro] 500 mg tablet 500 mg PO BID PRN (DME) 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 knee 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 See Rx Instructions .Route .MEDSUPPLY Qty: 1 0RF Rx Instructions: As directed oxycodone-acetaminophen 10-325 mg tablet PO Q6H PRN duloxetine 30 mg capsule,delayed release(DR/EC) 30 mg PO DAILY Qty: 39 0RF Rx Instructions: Take 1 tablet in the am and 2 tablets in the pm for 7 days,then take 1 tablet twice daily for 7 days,then take 1 table once a week for 4 weeks duloxetine 30 mg capsule,delayed release(DR/EC) See Rx Instructions .ROUTE .COMPLEX Qty: 90 0RF Dose Instruction: take 1 capsule BY MOUTH EVERY DAY Rx Instructions: take 1 capsule BY MOUTH EVERY DAY Myrbetriq 25 mg Tablet Extended Release 24 Hr 25 mg PO DAILY tramadol 50 mg tablet 50 mg PO Q6H PRN (Reason: pain) Qty: 20 0RF tramadol 50 mg tablet 50 mg PO DIRECTED Discharge Orders: Discharge ED (Routine); Ordered 12/31/23 Ordered By: Taina Sánchez Referrals: Man Vicente MD [Primary Care Provider] - Discharge Diet: Usual diet Discharge Activity: Increase activity as tolerated Activity Restrictions/Additional Instructions: Labs today are generally unremarkable though you have a slight decrease in your kidney function and a slight increase in your overall creatinine so, we did provide you with a liter of fluids to flush. Made several phone calls regarding your IVIG. After speaking to neurology, they did recommend we reach out to infusion to get you seen sooner. Unfortunately, the infusion inform me that is not an issue about getting you an appointment but rather, having your insurance company approve the specific IVIG that you require. Unfortunately, they told me it could take several months before they would be able to get the medication. I did let Dr. Bird-neurology on-call, no of this complication. She indicates that they are very limited in other treatment options or even medications which might provide you some relief. As you are having her cortisol level checked, you are not a candidate for steroids at this time. She did make a recommendation about involving home health to keep an eye on you and some physical therapy. Whether or not you choose to pursue these I have placed referrals for you which they should be reaching out and contacting you to discuss having you evaluated. If you do not wish to pursue these, you can decline at that time. I encourage you to reach out to your neurology office for continued appointments for monitoring as well. Unfortunately, I do believe your neurologist is out of town for about 2 weeks but, they still have coverage in the office. Coding Level of Care Code ED Distribution Operations Manager for Sakshi Menjivar
[2023-12-31 14:11] LABS: Basophils # 0.1 10^3/uL (0.0-0.1); Basophils % 0.5 %; Eosinophils # 0.4 10^3/uL (0.0-0.8); Eosinophils % 4.1 %; Hematocrit 47.5 % (37-53); Lymphocytes # 2.5 10^3/uL (0.8-4.8); Lymphocytes % 23.7 %; Mean Corpuscular HGB Conc 33.3 g/dL (30-55); Mean Corpuscular Hemoglobin 29.8 pg (27-33); Mean Corpuscular Volume 89.6 fl (82-101); Mean Platelet Volume 8.7 fL (7.4-10.4); Monocytes # 0.9 10^3/uL (0.2-0.9); Monocytes % 8.7 %; Neutrophils # 6.53 10^3/uL (1.8-7.7); Neutrophils % 62.8 %; Nucleated Red Blood Cells % 0 %; Platelet Count 252 10^3/cmm (157-399); Red Cell Distribution Width 12.3 % (12.1-15.1); White Blood Count 10.39 10^3/uL (3.29-11.43)
[2023-12-31 14:29] LABS: Alanine Aminotransferase 75 U/L (0-41); Albumin Level 4.5 g/dL (3.5-5.2); Alkaline Phosphatase 127 U/L (40-130); Anion Gap 17.8 (5-19); Aspartate Amino Transferase 57 U/L (0-40); Blood Urea Nitrogen 22 mg/dL (6-20); Calcium 9.8 mg/dL (8.5-10.5); Carbon Dioxide 22 mmol/L (22-29); Chloride 102 mmol/L (98-107); Creatinine Clr Calc Pharmacy 142.8389; Globulin 3.6 g/dL (1.3-4.6); Glomerular Filtration Rate 89.3 mL/min (90-130); Glucose 108 mg/dL (65-115); Osmolality Calculated 288 mOsm/kg (285-295); Potassium 4.8 mmol/L (3.5-5.1); Sodium 137 mmol/L (136-145); Total Bilirubin 0.4 mg/dL (0.15-1.2); Total Protein 8.1 g/dL (6.6-8.7)
[2023-12-31 14:33] LABS: Creatine Phosphokinase 558 U/L (39-308)
[2023-12-31 15:00] VITALS: BP 143/103; PULSE 96; O2SAT 98
[2023-12-31 15:05] LABS: Urine Color Dark Yellow (Yellow)
[2023-12-31 15:06] LABS: Add Urine Microscopic? YES; Bilirubin Urine Neg (Negative); Blood Urine Neg (Negative); Glucose Urine UA Norm (Normal); Ketones Urine 1+ (Negative); Leukocyte Esterase Urine Negative (Negative); Nitrate Urine Negative (Negative); Protein Urine Trace (Negative); Urobilinogen Urine Norm (Negative); pH Urine 5 (5-7)
[2023-12-31] MEDS: sodium chloride 0.9% 1,000 ML 999 ML IV (15:06)
[2023-12-31 15:09] LABS: Add Urine Culture? No; Mucus Urine 1+ /hpf; RBC Urine 0-4 /hpf (0-2); Squamous Epithelial Cell Urine 0-4 /hpf (0-5); Transitional Epi Cells Urine 0-4 /hpf; WBC Urine 0-4 /hpf (0-5)
[2023-12-31 15:30] VITALS: BP 151/101; O2SAT 96
[2023-12-31 16:26] LABS: Reflex Lactate Order REFLEX LACTIC ORDERD
--- NOTE | 2024-01-01 08:53 | DCPLANNER ---
Message sent to PT
--- NOTE | 2024-01-01 08:59 | PC.SOCIAL ---
Spoke with patient about HH; he states that he is agreeable and would like to stay with [facility]. Referral faxed to [facility] at this time.
--- NOTE | 2024-01-01 13:37 | PC.SOCIAL ---
ALY Person at [facility] reports that they can accept patient for PT. She will run insurance and call and update patient if any co-pay.
--- NOTE | 2024-01-07 07:58 | PC.SOCIAL ---
ALY Person from [facility] calls and reports that patient is declining HH until his IVIG infusions have been completed.
== END 2023-12-31 16:13 | disposition home or self-care (01) ==
PROVIDERS: Emergency Provider Physician Assistant; PCP Family Medicine
DX: M48.062 Spinal stenosis, lumbar region with neurogenic claudication (principal); R20.2 Paresthesia of skin; R53.1 Weakness; E27.8 Other specified disorders of adrenal gland
CPT/HCPCS: 36415; 80053; 81001; 82550; 83605; 85025; 93005; 96360; 99284; J7030

== ENCOUNTER 2024-02-26 06:50 | Outpatient (CLI) | payer BC, SELFPAY ==
[2024-02-26 08:56] LABS: Urine Creatinine 70 mg/dL (39-259)
[2024-02-26 09:06] LABS: Total Volume Urine 4100 ml
== END 2024-02-26 06:51 | disposition home or self-care (01) ==
PROVIDERS: Internal Medicine; PCP Family Medicine; Visit Provider Physician Assistant
DX: G61.81 Chronic inflammatory demyelinating polyneuritis (principal); E27.8 Other specified disorders of adrenal gland
CPT/HCPCS: 82530; 82570

== ENCOUNTER → 2024-03-31 15:45 | Outpatient (BNVA) | payer BC, SELFPAY | PROVIDERS: PCP Family Medicine; Visit Provider Student in an Organized Health Care Education/Training Program | DX: Z01.818 Encounter for other preprocedural examination (principal) | CPT/HCPCS: 36415; 80053; 85025 ==

== ENCOUNTER 2024-04-01 06:44 | Outpatient (CLI) | payer BC, SELFPAY ==
[2024-04-01 06:50] LABS: Charge for UA Resulting for Rev
[2024-04-01 06:56] LABS: Bilirubin Urine Negative (Negative); Blood Urine Negative (Negative); Glucose Urine UA Negative (Normal); Ketones Urine Negative (Negative); Leukocyte Esterase Urine Negative (Negative); Nitrate Urine Negative (Negative); Protein Urine Negative (Negative); Specific Gravity, Urine 1.014 (1.005-1.030); Urine Appearance Clear (CLEAR); Urine Color Yellow (Yellow)
[2024-04-01 07:01] LABS: Bacteria Urine None Seen /hpf; Hyaline Casts Urine 0-4 /lpf; RBC Urine 0-2 /hpf (0-2); Squamous Epithelial Cell Urine 0-5 /hpf (0-5); WBC Urine 0-5 /hpf (0-5)
== END 2024-04-01 06:45 | disposition home or self-care (01) ==
PROVIDERS: PCP Family Medicine; Visit Provider Physician Assistant
DX: Z01.818 Encounter for other preprocedural examination (principal)
CPT/HCPCS: 81003; 81015

== ENCOUNTER → 2024-04-06 11:09 | Outpatient (BNVA) | payer BC, SELFPAY | PROVIDERS: PCP Family Medicine; Visit Provider Family Medicine | DX: Z01.818 Encounter for other preprocedural examination (principal); R00.0 Tachycardia, unspecified; R94.31 Abnormal electrocardiogram [ECG] [EKG] | CPT/HCPCS: 93005 ==

== ENCOUNTER 2024-04-09 08:00 | Oncology outpatient (recurring) (ONCR) | payer BC, SELFPAY ==
--- NOTE | 2024-01-20 16:10 | PC.NURSE ---
Spoke with Annmarie at Dr. Ruiz office to clarify orders due to maintenance being ordered however no indication how often. Annmarie spoke with provider, no maintenance dosage for this order. ABHIJIT
[2024-03-12] VITALS (10 sets, daily range): BP systolic 103–187; BP diastolic 67–78; PULSE 73–89; RESP 16–19; TEMP 36.2–36.6; O2SAT 96–99
[2024-03-12] MEDS: sodium chloride 0.9% 250 ML 75 ML IV (08:15)
[2024-03-12] MEDS: diphenhydrAMINE 50 mg/mL SDV 1mL 25 MG IVP (08:16)
[2024-03-12] MEDS: acetaminophen 325 mg Tablet 650 MG PO (08:16)
[2024-03-12] MEDS: FLEXIBLE CONTAINER IV (08:47)
[2024-03-12] MEDS: IMMUNE GLOBULIN IV (08:47)
[2024-03-13] VITALS (9 sets, daily range): BP systolic 112–151; BP diastolic 71–97; PULSE 74–100; RESP 17–18; TEMP 35.8–36.4; O2SAT 93–97
[2024-03-13] MEDS: acetaminophen 325 mg Tablet 650 MG PO (08:16)
[2024-03-13] MEDS: diphenhydrAMINE 50 mg/mL SDV 1mL 25 MG IVP (08:17)
[2024-03-13] MEDS: IMMUNE GLOBULIN IV (08:50)
[2024-03-13] MEDS: FLEXIBLE CONTAINER IV (08:50)
[2024-03-16] VITALS (10 sets, daily range): BP systolic 98–115; BP diastolic 64–74; PULSE 69–78; RESP 16; TEMP 36.3–36.4; O2SAT 93–96
[2024-03-16] MEDS: acetaminophen 325 mg Tablet 650 MG PO (08:08)
[2024-03-16] MEDS: sodium chloride 0.9% 250 ML 75 ML IV (08:08)
[2024-03-16] MEDS: diphenhydrAMINE 50 mg/mL SDV 1mL 25 MG IVP (08:09)
[2024-03-16] MEDS: IMMUNE GLOBULIN IV (08:55)
[2024-03-16] MEDS: FLEXIBLE CONTAINER IV (08:55)
[2024-03-17] VITALS (9 sets, daily range): BP systolic 109–149; BP diastolic 72–103; PULSE 61–100; RESP 16–18; TEMP 35.1–36.6; O2SAT 95–99
[2024-03-17] MEDS: diphenhydrAMINE 50 mg/mL SDV 1mL 25 MG IVP (08:19)
[2024-03-17] MEDS: acetaminophen 325 mg Tablet 650 MG PO (08:19)
[2024-03-17] MEDS: sodium chloride 0.9% 250 ML 75 ML IV (08:22)
[2024-03-17] MEDS: IMMUNE GLOBULIN IV (09:02)
[2024-03-17] MEDS: FLEXIBLE CONTAINER IV (09:02)
[2024-03-18] VITALS (9 sets, daily range): BP systolic 111–147; BP diastolic 70–86; PULSE 79–92; RESP 16; TEMP 36.6–36.8; O2SAT 94–99
[2024-03-18] MEDS: acetaminophen 325 mg Tablet 650 MG PO (08:34)
[2024-03-18] MEDS: sodium chloride 0.9% 250 ML 75 ML IV (08:35)
[2024-03-18] MEDS: diphenhydrAMINE 50 mg/mL SDV 1mL 25 MG IVP (08:35)
[2024-03-18] MEDS: immune globulin (Gamunex-C) 40 GM, Immune Globulin (Gamunex-C) 20 GM in empty flexible ... IV (09:13)
--- NOTE | 2024-04-06 14:30 | CT_ITS ---
WS: [id number] CT LEFT knee, noncontrast HISTORY: LEFT TOTAL KNEE ARTHROPLASTY TECHNIQUE: Protocol for [facility] total knee replacement has been obtained. This includes axial imaging th rough the LEFT hip, LEFT knee and LEFT ankle. DLP: 1701.40 mGy.cm COMPARISON: Radiograph 11/08/2023 Normal pelvis. No destructive bone lesions. Mild narrowing of the all 3 compartments. Small osteophytes. Moderate size suprapatellar effusion. Sm all Pace's cyst. Negative LEFT ankle. CT/CT knee [facility]3] [address] IMPRESSION: CT imaging provided for [facility] robotic total knee replacement.
[2024-04-08] VITALS (10 sets, daily range): BP systolic 129–148; BP diastolic 81–101; PULSE 74–102; TEMP 35.9–36.6; O2SAT 97–99
[2024-04-08] MEDS: acetaminophen 500 mg Tablet 1000 MG PO (08:22)
[2024-04-08] MEDS: diphenhydrAMINE 25 mg Capsule PO (08:22)
[2024-04-08] MEDS: FLEXIBLE CONTAINER IV (09:06)
[2024-04-08] MEDS: IMMUNE GLOBULIN IV (09:06)
[2024-04-09] VITALS (10 sets, daily range): BP systolic 110–160; BP diastolic 77–86; PULSE 83–112; RESP 18; TEMP 36.2–36.6; O2SAT 94–98
[2024-04-09] MEDS: acetaminophen 500 mg Tablet 1000 MG PO (08:21)
[2024-04-09] MEDS: sodium chloride 0.9% 250 ML 75 ML IV ×2 (08:25→08:33)
[2024-04-09] MEDS: diphenhydrAMINE 50 mg/mL SDV 1mL 25 MG IVP ×2 (08:32→08:35)
[2024-04-09] MEDS: IMMUNE GLOBULIN IV (08:54)
[2024-04-09] MEDS: FLEXIBLE CONTAINER IV (08:54)
== END 2024-04-11 23:59 | disposition home or self-care (01) ==
PROVIDERS: PCP Family Medicine; Visit Provider Internal Medicine Medical Oncology
DX: Z79.620 Long term (current) use of immunosuppressive biologic (principal); Z53.9 Procedure and treatment not carried out, unspecified reason; G61.81 Chronic inflammatory demyelinating polyneuritis
CPT/HCPCS: 73700; 93005; 96365; 96366; 96375; J1200; J1561; J7050

== ENCOUNTER 2024-04-20 09:47 | Observation (INO) | payer BC, SELFPAY ==
[2024-04-20] VITALS (23 sets, daily range): BP systolic 115–171; BP diastolic 72–102; PULSE 51–97; RESP 16–22; TEMP 36.2–37; O2SAT 91–99; BMI 38.5
[2024-04-20] MEDS: lactated ringers 500 ML IV (06:30)
[2024-04-20 06:36] LABS: Basophils % 0.6 %; Eosinophils # 0.6 10^3/uL (0.0-0.8); Eosinophils % 11.6 %; Hematocrit 37.6 % (37-53); Lymphocytes # 1.5 10^3/uL (0.8-4.8); Lymphocytes % 31.3 %; Mean Corpuscular HGB Conc 33.2 g/dL (30-55); Mean Corpuscular Hemoglobin 31.4 pg (27-33); Mean Corpuscular Volume 94.5 fl (82-101); Mean Platelet Volume 8.9 fL (7.4-10.4); Monocytes # 0.4 10^3/uL (0.2-0.9); Monocytes % 8.1 %; Neutrophils # 2.37 10^3/uL (1.8-7.7); Neutrophils % 48.2 %; Nucleated Red Blood Cells % 0 %; Platelet Count 200 10^3/cmm (157-399); Red Blood Count 3.98 10^6/uL (3.85-5.65); Red Cell Distribution Width 15.9 % (12.1-15.1); White Blood Count 4.92 10^3/uL (3.29-11.43)
[2024-04-20] MEDS: acetaminophen 1,000 MG/100 ML PIGGYBACK 400 MG IV ×3 (06:39→21:32)
[2024-04-20] MEDS: ketorolac 30 mg/mL INJ IVP (06:39)
[2024-04-20] MEDS: scopolamine 1.5 Patch 1 PATCH TRANSDERMA (06:39)
--- NOTE | 2024-04-20 06:52 | ANES.PREANE2 ---
Pre-Anesthetic Assessment Height/Weight: Height 1.88 m Weight 136.078 kg Temp Pulse Resp BP Pulse Ox O2 Del Method 98.2 F 85 18 145/99 96 Room Air 04/20/24 06:04 04/20/24 06:04 04/20/24 06:04 04/20/24 06:39 04/20/24 06:04 04/20/24 06:11 Operation Date: 04/20/24 07:00 Proposed Procedures p Jean Robot Total Knee Arthroplasty(Left) - Chalino Landry DO Familial anesthetic complications: None Was Beta Hermelinda taken within 24 hours: N/A Was Clonidine taken within 24 hours: N/A Last intake: Intake Last Liquid Date 04/19/24 Last Liquid Time 23:55 Last Solid Date 04/19/24 Last Solid Time 15:30 Social No alcohol and No tobacco Exam alert, oriented x 3, clear to auscultation bilaterally and regular rate & rhythm Airway Mallampati: Class III Dentition: full CV/HEM Hypertension Metabolic Morbid Obesity and Thyroid Disease Neuropsych Hx guillain-barre, 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 Anesthetic Plan ASA status: 3 Anesthesia: Regional (specify below) Risk of > 500 ml blood loss (7ml/kg in children): No Medications/Allergies Home Medications Medication Instructions Recorded Confirmed Last Taken Type alprazolam 1 mg tablet 1 mg PO TID PRN Anxiety 08/26/20 04/17/24 04/20/24 History famotidine 20 mg tablet 20 mg PO DAILY 08/26/20 04/17/24 04/20/24 History levothyroxine 100 mcg capsule 100 mcg PO DAILY 08/26/20 04/17/24 04/20/24 History lisinopril 20 1 tab PO DAILY 08/26/20 04/17/24 04/19/24 History mg-hydrochlorothiazide 12.5 mg tablet mirabegron 25 mg tablet,extended 25 mg PO DAILY 11/11/20 04/17/24 04/17/24 History release 24 hr (Myrbetriq) ciprofloxacin HCl 500 mg tablet 500 mg PO BID PRN infection 11/08/23 04/17/24 3 Weeks Ago History (Cipro) ~03/27/24 left knee 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 #1 ea 11/08/23 03/31/24 Unknown Rx immune glob G 40 gram/400 See Rx Instructions IV .COMPLEX 6 03/09/24 04/17/24 04/08/24 Rx mL(10%)-gly-IgA ave 46 mcg/mL months injection soln (Gamunex-C) oxycodone 30 mg tablet 30 mg PO PRN PRN Pain 04/06/24 04/17/24 04/17/24 History tamsulosin 0.4 mg capsule 0.4 mg PO DAILY 04/06/24 04/17/24 04/17/24 History duloxetine 30 mg capsule,delayed 1 mg PO DAILY 04/17/24 04/17/24 04/20/24 History release silodosin 4 mg capsule 4 mg PO DAILY 04/17/24 04/17/24 04/17/24 History tizanidine 4 mg tablet 4 mg PO BID PRN Muscle Spasticity 04/17/24 04/17/24 04/17/24 History trimethoprim 100 mg tablet 100 mg PO DAILY 04/17/24 04/17/24 04/17/24 History Allergies Allergy/AdvReac Type Severity Reaction Status Date / Time hydrocodone Allergy Mild makes him Verified 04/06/24 11:29 feel crazy morphine Allergy ADR-Headach Verified 04/06/24 11:29 e PFSH Anesthesia Medical History (Updated 04/20/24 @ 10:42 by Raheel Campos MD) Chronic inflammatory demyelinating polyneuritis Adrenal nodule Chronic neck and back pain Hypothyroid Hypertension Surgical History (Updated 04/20/24 @ 10:40 by Raheel Campos MD) Hx laparoscopic cholecystectomy 2016 Hx of knee surgery left History of hand surgery left hand 2000 Previous back surgery L4/5 Family History Unknown Hypertension Social History Smoking and tobacco/nicotine status: never used tobacco/nicotine Alcohol intake: current Alcohol intake frequency: holidays/special occasions only Data Anesthesia 04/20/24 06:15 04/20/24 06:15 Short CBC 04/20/24 Range/Units 06:15 WBC 4.92 (3.29-11.43) 10^3/uL Hgb 12.50 (11.27-16.99) g/dL Hct 37.6 (37-53) % MCV 94.5 (82-101) fl Plt Count 200 (157-399) 10^3/cmm Neut % (Auto) 48.2 % Neut # (Auto) 2.37 (1.8-7.7) 10^3/uL Cardiac Studies: No Data to Display
--- NOTE | 2024-04-20 06:53 | W.PM.OPSUD ---
Surgery/Procedure H&P Update DATE OF PROCEDURE: April 20, 2024 DATE H&P PERFORMED: 04/06/24 H&P UPDATE INFORMATION: I have reviewed H&P completed within last 30 days, I have examined patient prior to procedure and No changes to prior documentation PREOP DIAGNOSIS: Left knee degenerative joint disease PRIMARY INDICATION FOR PROCEDURE: Left knee degenerative joint disease PLANNED PROCEDURE: Operation Date: 04/20/24 07:00 Proposed Procedures p Jean Robot Total Knee Arthroplasty(Left) - Chalino Landry DO
[2024-04-20 06:56] LABS: Blood Urea Nitrogen 19 mg/dL (6-20); Calcium 8.8 mg/dL (8.5-10.5); Carbon Dioxide 26 mmol/L (22-29); Chloride 104 mmol/L (98-107); Glomerular Filtration Rate 101.9 mL/min (90-130); Glucose 95 mg/dL (65-115); Osmolality Calculated 292 mOsm/kg (285-295); Sodium 140 mmol/L (136-145)
[2024-04-20] MEDS: ceFAZolin 3,000 MG in sodium chloride 0.9% (plus) 100 ML 200 MG IV (07:03)
[2024-04-20] MEDS: tranexamic acid 1,000 mg/10mL SDV 1000 MG IV (07:50)
--- NOTE | 2024-04-20 08:24 | PC.NURSE ---
aware of urine and urine analysis
[2024-04-20] MEDS: tranexamic acid 1,000 mg/10mL SDV 1000 MG XX (08:30)
[2024-04-20] MEDS: ketorolac 30 mg/mL INJ (08:30)
[2024-04-20] MEDS: ROPivacaine 0.2% Premix 100 mL 200 MG INTRA-ARTI (08:30)
[2024-04-20] MEDS: EPINEPHrine 1 mg/mL INJ XX (08:30)
[2024-04-20] MEDS: vancomycin 1,000 MG SDV 1000 MG XX (09:00)
--- NOTE | 2024-04-20 09:40 | PM.OP ---
Operative Report Date of procedure: April 20, 2024 Surgeon: Chalino Landry DO [employer] Chief Scientist: Jose Landry PA-C: PA was necessary for assistance in this case with leg positioning retraction and protection of neurovascular structures as well as assistance in implantation wound closure and dressing application. Procedure: Preoperative diagnosis: Left knee degenerative joint disease Post-op diagnosis: Same Procedure done: Left total knee arthroplasty, cemented?robotic assisted Jean Implants: Onsted triathlon size 6 femur CR cemented?left Onsted triathlon size? 5 tibia universal baseplate cemented Onsted triathlon asymmetric patella size 35 mm Lakisha triathlon polyethylene 9mm Surgeon: Chalino Landry DO Estimated blood?loss: 25 mL Tourniquet 70minutes IV fluids: 600 mL Urine output: 100 mL Complications: None Condition: stable Disposition: floor Brief History: Patient is a 49-year-old male with with chronic?left knee degenerative joint disease.? Patient has been worked up in the outpatient setting in the orthopedic office at this point time through shared decision making given? [id number] arthritis as well as failed conservative treatment, and pt would?like to proceed with a?left total knee arthroplasty.? Through shared decision making elected to proceed with surgical intervention for?left total knee arthroplasty.? We talked about continued conservative treatment and surgical intervention as far as the risk benefits complications alternatives surgical and nonsurgical treatment options.? At this point time understanding patient risks with surgery he agrees to proceed with surgical intervention.? Once again? risk with surgery include but are not?limited to make it better make it worse blood clot, heart attack, stroke, on the table, infection, injury to nerves or vessels, persistent pain, arthrofibrosis, implant failure.? Understanding these risks patient agrees to proceed with surgical intervention consent was obtained in the office.? All questions answered. Procedure: Patient was seen and evaluated in the preoperative holding area.? Consent was reviewed and signed with patient with plan for?left total knee arthroplasty.? All questions answered.? Correct extremity marked.? Patient seen and evaluated by the anesthesia department and once cleared for surgery was taken back to the operative suite.? Patient was placed into a supine position on the OR table.? All bony prominences were well-padded.? Patient was appropriately secured to the bed.? Patient underwent anesthesia per the anesthesia department.? Patient received general anesthesia and? Sanchez catheter was placed.? A nonsterile tourniquet was applied to the?left thigh.? At this point in time a final timeout performed.? Patient received appropriate preoperative antibiotics and TXA. Next the?left?lower extremity was then prepped and draped in standard orthopedic fashion. Esmarch tourniquet was used exsanguinate the?left?lower extremity.? Tourniquet was insufflated to 300 mmHg. A standard anterior incision was made over midline of the knee.? Sharp scalpel excision through skin and subcutaneous tissue full-thickness skin flaps were made.? Fascia was elevated off of the extensor retinaculum was stable with medial parapatellar arthrotomy was then made.? The performed standard sequential releases..? Immediately on entry into the joint patient was found to have severe eburnated bone and tricompartmental arthritic changes noted.? With significant osteophyte formation.? Next the the patella was then stuffed and the knee was then flexed.?? Oksana was placed superiorly around the anterior aspect of the femur this was freed of synovium and I subsequently then placed by 2 femur pins to establish my femur arrays for the Jean robot.? These were then placed bicortically and? femur array was then appropriately secured with appropriate visualization.? Next attention was turned towards the tibial rays.? These were then drilled sequentially bicortically in parallel fashion and intraincisional.? I then placed my guide as well as my tibial array on in place.? This was appropriately secured and had excellent visualization with the Jean robot.? Next the tibial checkpoint as well as femur checkpoint were then placed.? At this point time I then subsequently established my head center as well as my medial?lateral malleoli as well as my checkpoints.? Next utilizing standard Jean technology I then mapped out the appropriate points and confirmation points around the femur as well as the tibia in standard fashion.? Once this was then done I then removed all osteophytes in preparation for dynamic testing.? All osteophytes were removed as well as I removed the ACL and the PCL was excised due to its significant tearing and degeneration noted.? At this point time the knee was brought into full extension and we performed our standard evaluation of our gap balancing stressing his?ligaments and extension as well as flexion appropriate adjustments were made to have appropriate gap balancing in both flexion and extension.? This plan for final counts.? We get a preoperative plan evaluating our implants which was a size 6 femur and a size 5 tibia.? Next we brought in the Jean robot and sequentially made our femur cuts.? All excess bony cuts were then removed.? Finally we made our tibial cut.? Once this was done a standard PCL retractor was then placed into this position I excised the medial and?lateral meniscus.? The tibial cut was then subsequently removed all excess bony debris was removed.? I then utilized a?lamina health science specialist and remove the posterior osteophytes.? At this point time sized the tibia and confirmed this was a size 5.? I utilized our blunt probe to establish rotation of tibial implant.? Once this was done I then placed my tibia size 5 trial in appropriate position and then subsequently placed tibial pins to hold this into place placed a size 9 mm poly as well as a size 6 femur which was appropriately impacted in place knee was then subsequently brought into extension. Trials were then assessed,? this was stable with varus valgus stress in extension as well as had symmetrical translation when brought into flexion demonstrating symmetrical gaps. I had excellent balance gaps in flexion and extension with varus and valgus stresses.? At this point I was satisfied with these implants these were then verified and opened on the back table size 5 tibia, size 6 femur,? size 9 mm polythickness.? We did confirm appropriate gap balancing and stresses as well as alignment utilizing? Jean and were satisfied with this plan.? ?At this point time with my trials in place I then towel clip the patella everted this made appropriate measurements subsequently utilizing freehand technique performed by patellar resurfacing this was confirmed to be appropriate resection and subsequently sized to be a 35 mm asymmetric.? My drill peg guides were then clamped and appropriate position and appropriate position in the patella for appropriate tracking and parallel with the joint.? Pegs were drilled trial implant was placed and the knee was then subsequently ranged and found to have excellent patellar tracking.? Femur pegs were then drilled.?All checkpoints as well as guidepins and arrays were removed and appropriate counts made. Satisfied with our tibial placement rotation I then utilized the keel punch and prepped the tibia.? At this point time all of our trial implants were removed.? ? The wound bed? was thoroughly irrigated and dried and prepped for cementation.? Cement was mixed on the back table.? Once cement was ready this was then covered onto the tibia and the tibial baseplate was then impacted and all excess cement was removed.? Next the polyethylene was then impacted into place on the tibial baseplate.? Next cement was placed onto the femur as well as under the femur implants and impacted in to place and all excess cement was extruded and removed.? Knee was taken into full extension? to clear all excess cement was removed.? Warm saline was placed over the joint.? I then towel clip patella and dried for cementation. cemented the patella into place.? This was all clamped and the cement was allowed to cure.? Thorough irrigation performed with pulse?lavage.? I then placed my periarticular injection while the cement was curing.? Once cured the knee was taken through range of motion and had excellent stability and gaps were balanced in flexion and extension.? Tourniquet was then deflated. hemostasis satisfactory with electrocautery.? vancomycin powder was placed in the incision for antibiotic infection prophylaxis. Next I then subsequently closed the capsule with Ethibond suture as well as a running strata fix suture.? Knee was then taken through range of motion 20 times.? Next the skin was then closed in?layered fashion of running stratifix sutures of deep and subcutenous tissue and skin.? ?closed in flexion and Prineo glue was then placed over the incision this allowed to cure.? Incision was covered with sven, with ABDs soft roll and James wrap.? Patient was then awakened from anesthesia and taken to PACU in stable condition. Disposition: Patient taken to PACU in stable condition will be admitted to the floor for pain control PT/OT weight-bear as tolerated?left?lower extremity dressing changes as needed, DVT prophylaxis. Pain control. Patient will receive appropriate postoperative antibiotics. patient will be seen today by the internal medicine team for medical management.? Patient will follow up with the office in 2 weeks.? Patient understands agrees with current plan.? All questions answered.
--- NOTE | 2024-04-20 09:51 | XR_ITS ---
WS: [id number] XR knee LT 1-2V 92711 REASON FOR EXAM: post L TKA FINDINGS: Total left knee arthroplasty. Components of the prosthesis are intact and in proper position and alignment. No focal bony abnormality. XR/XR knee LT 1-2V 85944 IMPRESSION: Total left knee arthroplasty without abnormality.
--- NOTE | 2024-04-20 10:09 | W.PM.BPON ---
Date of Procedure: [04/20/24] Surgeon: [Dr. Landry DO] Upper Leather Sorter(s): [Jose Landry PA-C] Procedure(s) performed: [Left total knee arthroplasty with Jean robotic assist] Findings of the procedure(s): [Left knee degenerative joint disease] Estimated blood loss: [25 mL] Specimen(s) removed: [N/A] Post-operative diagnosis: [Left knee degenerative joint disease]
--- NOTE | 2024-04-20 10:12 | PM.PACU ---
PACU note Narrative: Patient is a 49-year-old male that just underwent a left knee total arthroplasty. Pt transferred to PACU in stable condition. Dressing is dry. pt is awake and alert. pt can wiggle toes and plantarflex and dorsiflex foot. pt able to perform straight leg raise, Femoral nerve intact. Distal pulses are palpable toes are warm and well-perfused. Cap refill is normal and under 2 seconds. Sensation to foot is intact. Pain is controlled. Exam: awake Disposition: admitted
--- NOTE | 2024-04-20 10:38 | P.HP_ITS ---
Providers/Chief Complaint 2 Admitting Physician: Chalino Landry DO Primary Care Provider: Man Vicente MD Chief Complaint: pred 04/17 History of Present Illness Leidy Salinas is a 49 year old male who underwent a left total knee arthroplasty today. I have been asked to see him in medical management. I am evaluating him in the direct postoperative area, recovery. He is still somewhat sleepy, and cannot answer questions reliably. History is taken from orthopedic notes, old records, report from Dr. Landry. Medications/Allergies Home Medications Medication Instructions Recorded Confirmed Last Taken Type alprazolam 1 mg tablet 1 mg PO TID PRN Anxiety 08/26/20 04/17/24 04/20/24 History famotidine 20 mg tablet 20 mg PO DAILY 08/26/20 04/17/24 04/20/24 History levothyroxine 100 mcg capsule 100 mcg PO DAILY 08/26/20 04/17/24 04/20/24 History lisinopril 20 1 tab PO DAILY 08/26/20 04/17/24 04/19/24 History mg-hydrochlorothiazide 12.5 mg tablet mirabegron 25 mg tablet,extended 25 mg PO DAILY 11/11/20 04/17/24 04/17/24 History release 24 hr (Myrbetriq) ciprofloxacin HCl 500 mg tablet 500 mg PO BID PRN infection 11/08/23 04/17/24 3 Weeks Ago History (Cipro) ~03/27/24 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 ea 11/08/23 03/31/24 Unknown Rx immune glob G 40 gram/400 See Rx Instructions IV .COMPLEX 6 03/09/24 04/17/24 04/08/24 Rx mL(10%)-gly-IgA ave 46 mcg/mL months injection soln (Gamunex-C) oxycodone 30 mg tablet 30 mg PO PRN PRN Pain 04/06/24 04/17/24 04/17/24 History tamsulosin 0.4 mg capsule 0.4 mg PO DAILY 04/06/24 04/17/24 04/17/24 History duloxetine 30 mg capsule,delayed 1 mg PO DAILY 04/17/24 04/17/24 04/20/24 History release silodosin 4 mg capsule 4 mg PO DAILY 04/17/24 04/17/24 04/17/24 History tizanidine 4 mg tablet 4 mg PO BID PRN Muscle Spasticity 04/17/24 04/17/24 04/17/24 History trimethoprim 100 mg tablet 100 mg PO DAILY 04/17/24 04/17/24 04/17/24 History Allergies Allergy/AdvReac Type Severity Reaction Status Date / Time hydrocodone Allergy Mild makes him Verified 04/06/24 11:29 feel crazy morphine Allergy ADR-Headach Verified 04/06/24 11:29 e PFSH Acute 2 PFSH: Medical History (Updated 04/20/24 @ 10:42 by Raheel Campos MD) Chronic inflammatory demyelinating polyneuritis Adrenal nodule Chronic neck and back pain Hypothyroid Hypertension Surgical History (Updated 04/20/24 @ 10:40 by Raheel Campos MD) Hx laparoscopic cholecystectomy 2015 Hx of knee surgery left History of hand surgery left hand 2000 Previous back surgery L4/5 Family History Unknown Hypertension Social History Smoking and tobacco/nicotine status: never used tobacco/nicotine Alcohol intake: current Alcohol intake frequency: holidays/special occasions only Vitals/I&O/Wt Last Vital Signs Temp 98.2 F 04/20/24 06:04 Pulse 85 04/20/24 06:04 Resp 18 04/20/24 06:04 BP 145/99 04/20/24 06:39 Pulse Ox 96 04/20/24 06:04 O2 Del Method Room Air 04/20/24 06:11 O2 Flow Rate 6 04/20/24 10:11 04/19/24 04/20/24 04/20/24 22:59 06:59 14:59 Intake Total 600 / 600 Output Total 125 / 125 Balance 475 / 475 Weight last 48 hrs Weight 136.078 kg Physical Exam 2 Narrative: General exam is a sleeping white male in no distress HEENT: Pupils equally round. Neck is supple Cardiovascular regular rate and rhythm Lungs clear Abdomen is soft. No obvious organomegaly. Bowel sounds noted exam is deferred Extremities no cyanosis clubbing or edema. Left knee with dressing, clean and dry Skin no rash Neuro no focal deficits that are obvious. Urinary Catheter Management: Sanchez: Cath Placed During This Visit: yes Urinary Catheter Date of Insertion: 04/20/24 Urinary Catheter Time of Insertion: 07:31 Data 04/20/24 06:15 04/20/24 06:15 Other Labs: Urinalysis on April 01 was negative EKG on April 06 by my read demonstrates sinus rhythm, normal axis, no acute changes A&P Assessment and plan (1) Left knee DJD: Patient is directly postoperative left knee total arthroplasty. Therapy consultations Pain control. He was using oxycodone 30 mg as needed at home. When patient awakens I will discussed with him the frequency of his use. 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 Will need to continue to self cath 4 times daily. I believe he is on Bactrim for prophylaxis but will clarify when I discussed with him. As he is receiving perioperative antibiotics it is not likely he will need this acutely Other medical problems as outlined by past medical history Thank you for this consultation Attestations 2 Medical Necessity Statement*: As per primary Diagnoses Left knee DJD M17.12 Chronic neck and back pain M54.2; M54.9; G89.29 Hypertension I10 Chronic inflammatory demyelinating polyneuritis G61.81 Time Spent (min) 39
--- NOTE | 2024-04-20 11:05 | ANE.PACU2 ---
Inpatient post-anesthesia follow up: Airway intact: Yes Vital signs: Temperature 97.6 F Pulse Rate 51 Respiratory Rate 17 Blood Pressure 171/72 Pulse Oximetry 99 Oxygen Delivery Me thod Room Air Oxygen Flow Rate 6 Fraction of Inspir ed Oxygen Hydration adequate: Yes Nausea and vomiting: No Pain level: 1 Mental status: Baseline
[2024-04-20] MEDS: lactated ringers 1,000 ML 100 ML IV ×2 (11:45→21:32)
[2024-04-20] MEDS: docusate sodium 100 mg Capsule PO ×2 (11:46→17:26)
[2024-04-20] MEDS: iron polysaccharide complex 150 mg Capsule PO ×2 (11:46→17:27)
[2024-04-20] MEDS: sennosides-docusate Tablet 2 TAB PO ×2 (11:46→17:26)
[2024-04-20] MEDS: multivitamin therapeutic Tablet 1 TAB PO (11:46)
[2024-04-20] MEDS: calcium carb-vit d 600mg/400unit 1 Tablet 1 EACH PO ×2 (11:46→17:26)
[2024-04-20] MEDS: HYDROmorphone 1 mg/mL INJ 1 mL 0.5 MG IVP ×2 (13:29→21:32)
[2024-04-20] MEDS: tizanidine 4 mg Tablet PO (13:30)
[2024-04-20] MEDS: tranexamic acid 1,000 MG/100 ML PREMIX 600 MG IV (13:32)
[2024-04-20] MEDS: chlorhexidine gluconate 0.12% Btl 473 mL 30 ML MUCOUS MEM ×3 (14:50→21:31)
[2024-04-20] MEDS: ceFAZolin 2,000 MG in sodium chloride 0.9% (plus) 50 ML 100 MG IV ×2 (15:10→23:26)
[2024-04-20] MEDS: mupirocin oint 22 gm 1 APPLIC NASAL (17:28)
[2024-04-20] MEDS: oxyCODONE IR 30 mg Tablet PO (19:40)
[2024-04-21] VITALS (8 sets, daily range): BP systolic 128–152; BP diastolic 80–92; PULSE 73–90; RESP 16–18; TEMP 36.6–37.3; O2SAT 94–98
[2024-04-21] MEDS: HYDROmorphone 1 mg/mL INJ 1 mL 0.5 MG IVP (03:54)
[2024-04-21] MEDS: tizanidine 4 mg Tablet PO (03:56)
[2024-04-21 04:58] LABS: Basophils % 0.2 %; Eosinophils % 0.1 %; Hematocrit 34.3 % (37-53); Lymphocytes # 1.4 10^3/uL (0.8-4.8); Lymphocytes % 10.9 %; Mean Corpuscular HGB Conc 33.2 g/dL (30-55); Mean Corpuscular Hemoglobin 31.3 pg (27-33); Mean Corpuscular Volume 94.2 fl (82-101); Mean Platelet Volume 9.2 fL (7.4-10.4); Monocytes # 0.9 10^3/uL (0.2-0.9); Monocytes % 6.7 %; Neutrophils # 10.37 10^3/uL (1.8-7.7); Neutrophils % 81.6 %; Nucleated Red Blood Cells % 0 %; Platelet Count 202 10^3/cmm (157-399); Red Blood Count 3.64 10^6/uL (3.85-5.65); Red Cell Distribution Width 15.4 % (12.1-15.1); White Blood Count 12.69 10^3/uL (3.29-11.43)
[2024-04-21 05:16] LABS: Anion Gap 14.1 (5-19); Blood Urea Nitrogen 19 mg/dL (6-20); Calcium 8.9 mg/dL (8.5-10.5); Carbon Dioxide 24 mmol/L (22-29); Chloride 100 mmol/L (98-107); Glomerular Filtration Rate 101.9 mL/min (90-130); Glucose 100 mg/dL (65-115); Osmolality Calculated 280 mOsm/kg (285-295); Potassium 4.1 mmol/L (3.5-5.1); Sodium 134 mmol/L (136-145)
[2024-04-21] MEDS: acetaminophen 1,000 MG/100 ML PIGGYBACK 400 MG IV (05:34)
[2024-04-21] MEDS: ketorolac 30 mg/mL INJ 15 MG IVP (05:38)
[2024-04-21] MEDS: ceFAZolin 2,000 MG in sodium chloride 0.9% (plus) 50 ML 100 MG IV (06:21)
[2024-04-21] MEDS: oxyCODONE IR 30 mg Tablet PO ×2 (06:22→11:01)
[2024-04-21] MEDS: lactated ringers 1,000 ML 100 ML IV (06:22)
--- NOTE | 2024-04-21 08:07 | P.DS_ITS ---
Discharge Providers Date of Admission: 04/20/24 09:47 Date of Discharge: April 21, 2024 Attending Provider at Admission: Chalino Landry DO Attending Provider at Discharge: Chalino Landry DO Consults: Dr. Campos?hospitalist Primary Care Provider: Man Vicente MD Diagnoses at Discharge Discharge Diagnosis (1) Left knee DJD: Status: Resolved (2) Chronic neck and back pain: Status: Acute (3) Hypertension: Status: Acute (4) Chronic inflammatory demyelinating polyneuritis: Status: Acute Reason for Visit Reason for Visit: pred 04/17 Brief History: Status post left TKA Hospital Course Hospital Course Patient presented to the preoperative holding area with plan for left total knee arthroplasty after patient has been worked up in the outpatient setting for failed conservative treatment of left knee degenerative joint disease. Once cleared by anesthesia for surgery patient subsequently was taken back to the operative suite underwent anesthesia per anesthesia department and then subs equently underwent a left total knee arthroplasty. Procedure was performed without any complications patient was taken to PACU in stable condition patient recovered well in PACU and then was admitted to the floor postoperatively internal medicine was consulted and on board for medical management and assistance with care. Patient received appropriate PT/OT, postoperative antibiotics, postoperative TXA, pain control, postoperative DVT prophylaxis. Elevation and ice. Patient encouraged for knee range of motion allowed weightbearing as tolerated to the operative lower extremity. Dressing was changed as needed, labs were monitored daily. Patient recovered well postoperatively and worked well and progressed well with therapy. It was determined on postoperative day 1 the patient was stable for discharge from an orthopedic standpoint and medicine. Patient was comfortable with discharge and plan was discharged home. Patient received appropriate discharge instructions as well as pain medication and DVT prophylaxis postoperatively. Given appropriate instructions for dressing management. Patient will follow-up with Dr. Landry/orthopedics in the office in 2 weeks. All questions answered. Understand if there is any issues questions or concerns and contact the office. Physical Exam Narrative: Examination left lower extremity: Examination left lower extremity demonstrates patient's dressings on in place good seal normal postoperative swelling about the knee as well as diffuse tender ness palpation. Calf soft nontender compartment soft compressible. Distal pulses are palpable toes warm well-perfused with cap refill less than 2 seconds and a plantarflex and dorsiflex ankle as well as wiggle toes. Urinary Catheter Management: Sanchez: Cath Placed During This Visit: yes, but has since been removed by the nurse Reason for Continuing Indwelling Catheter: Decision to DC Catheter Urinary Catheter Date of Insertion: 04/20/24 Urinary Catheter Time of Insertion: 07: Date Urinary Catheter Removed: 04/21/24 Time Urinary Catheter Discontinued: 06:31 Discharge Data Studies Completed and Pending Completed Studies During Hospitalization Category Date Time Status XR knee LT 1-2V 19742 Routine Exams 04/20/24 09:51 Completed Pending at discharge Category Date Time Status Basic Metabolic Panel AM LABS Lab 04/22/24 04:00 Ordered Basic Metabolic Panel AM LABS Lab 04/23/24 04:00 Ordered Complete Blood Count w/Auto AM LABS Lab 04/22/24 04:00 Ordered Complete Blood Count w/Auto AM LABS Lab 04/23/24 04:00 Ordered Radiology Impressions Knee X-Ray 04/20/24 09:51 IMPRESSION: Total left knee arthroplasty without abnormality. Laboratory Results WBC 12.69 10^3/uL (3.29-11.43) H 04/21/24 04:26 RBC 3.64 10^6/uL (3.85-5.65) L 04/21/24 04:26 Hgb 11.40 g/dL (11.27-16.99) 04/21/24 04:26 Hct 34.3 % (37-53) L 04/21/24 04:26 MCV 94.2 fl (82-101) 04/21/24 04:26 MCH 31.3 pg (27-33) 04/21/24 04:26 MCHC 33.2 g/dL (30-55) 04/21/24 04:26 RDW 15.4 % (12.1-15.1) H 04/21/24 04:26 Plt Count 202 10^3/cmm (157-399) 04/21/24 04:26 MPV 9.2 fL (7.4-10.4) 04/21/24 04:26 Neut % (Auto) 81.6 % 04/21/24 04:26 Lymph % (Auto) 10.9 % 04/21/24 04:26 [place] % (Auto) 6.7 % 04/21/24 04:26 Eos % (Auto) 0.1 % 04/21/24 04:26 Baso % (Auto) 0.2 % 04/21/24 04:26 Neut # (Auto) 10.37 10^3/uL (1.8-7.7) H 04/21/24 04:26 Lymph # (Auto) 1.4 10^3/uL (0.8-4.8) 04/21/24 04:26 [place] # (Auto) 0.9 10^3/uL (0.2-0.9) 04/21/24 04:26 Eos # (Auto) 0.0 10^3/uL (0.0-0.8) 04/21/24 04:26 Baso # (Auto) 0.0 10^3/uL (0.0-0.1) 04/21/24 04:26 Nucleated RBC % (auto) 0 % 04/21/24 04:26 Nucleated RBCs # 0.0 /100WBC 04/21/24 04:26 Sodium 134 mmol/L (136-145) L 04/21/24 04:26 Potassium 4.1 mmol/L (3.5-5.1) 04/21/24 04:26 Chloride 100 mmol/L (98-107) 04/21/24 04:26 Carbon Dioxide 24 mmol/L (22-29) 04/21/24 04:26 Anion Gap 14.1 (5-19) 04/21/24 04:26 BUN 19 mg/dL (6-20) 04/21/24 04:26 Creatinine 0.8 mg/dL (0.7-1.2) 04/21/24 04:26 GFR Calculation 101.9 mL/min (90-130) 04/21/24 04:26 Glucose 100 mg/dL (65-115) 04/21/24 04:26 Calculated Osmolality 280 mOsm/kg (285-295) L 04/21/24 04:26 Calcium 8.9 mg/dL (8.5-10.5) 04/21/24 04:26 Blood Type A Positive 04/20/24 06:15 Rho(D) Type Rh positive 04/20/24 06:15 Antibody Screen Negative 04/20/24 06:15 Vitals Last Vital Signs Temp 97.9 F 04/21/24 04:00 Pulse 76 04/21/24 04:00 Resp 18 04/21/24 06:22 BP 152/92 04/21/24 04:00 Pulse Ox 97 04/21/24 04:00 O2 Del Method Room Air 04/21/24 04:00 O2 Flow Rate 6 04/20/24 10:15 Discharge Plan Discharge Patient Disposition: Home Health Service Condition: Stable Prescriptions: New ondansetron 4 mg tablet,disintegrating 4 mg PO Q8H PRN (Reason: nausea and vomiting) 3 Days Qty: 9 0RF Eliquis 2.5 mg tablet 2.5 mg PO BID 14 Days Qty: 28 0RF oxycodone 30 mg Tablet 30 mg PO Q4H PRN (Reason: Severe Pain) 7 Days Qty: 42 0RF Calcium 600 + D(3) 600 mg-10 mcg (400 unit) tablet 1 tab PO DAILY 30 Days Qty: 30 0RF Continued levothyroxine 100 mcg capsule 100 mcg PO DAILY lisinopril-hydrochlorothiazide 20-12.5 mg tablet 1 tab PO DAILY famotidine 20 mg tablet 20 mg PO DAILY alprazolam 1 mg tablet 1 mg PO TID PRN (Reason: Anxiety) ciprofloxacin HCl [Cipro] 500 mg tablet 500 mg PO BID PRN (Reason: infection) tamsulosin 0.4 mg capsule 0.4 mg PO DAILY Gamunex-C 40 gram/400 mL (10 %) solution See Rx Instructions IV .COMPLEX 180 Days Rx Instructions: intravenously; 500mg/kg/per day for 2 days & every 3 weeks thereafter mirabegron [Myrbetriq] 25 mg Tablet Extended Release 24 Hr 25 mg PO DAILY tizanidine 4 mg tablet 4 mg PO BID PRN (Reason: Muscle Spasticity) Rx Instructions: TAKE 1 TABLET BY MOUTH THREE TIMES DAILY NEEDED FOR muscle spasticity duloxetine 30 mg capsule,delayed release(DR/EC) 1 mg PO DAILY Rx Instructions: take 1 capsule BY MOUTH EVERY DAY silodosin 4 mg capsule 4 mg PO DAILY trimethoprim 100 mg tablet 100 mg PO DAILY Held oxycodone 30 mg tablet 30 mg PO PRN PRN (Reason: Pain) Hold Instructions: Resume on 04/28/24. Discontinued (DME) left knee medial drier unloader brace See Rx Instructions .Route .MEDSUPPLY Qty: 1 0RF Rx Instructions: As directed Discharge Orders: Discharge Order (Routine); Ordered 04/21/24 Ordered By: Chalino Landry Other Ambulatory Orders: Physical Therapy Eval and Treat Outpatient (Order) Timeframe: 2 Days Facility: [facility] - Location: Physical Therapy [place] Ordered By: Chalino Landry Referrals: Man Vicente MD [Primary Care Provider] - 04/24/24 3:00 pm Jose Landry PA [Physician Cigar Making Machine Supervisor] - 05/05/24 10:15 am Discharge Diet: Regular Discharge Activity: Limit activity as instructed and Use walker/crutches as instructed Patient Instructions: Oxycodone, Rapid Release (By mouth), Ondansetron (By mouth), Apixaban (By mouth), Acute Wound Care (DC), Total Knee Replacement (GEN), Joint Replacement Stoplight, Opioid Safety, Post Anesthesia Care Activity Restrictions/Additional Instructions: Orthopedic discharge instructions Sven Dressing--Keep dressing on and dry. After 3 days you can remove some of the dressing and shower. disconnect battery pack when showering. Sven dressing will stay on until follow up appt in 2 weeks. The battery pack for the dressing will at 5-7 days. Battery pack can be removed and discarded once batteries . May leave sven bandage on for 2 weeks Patient may weight-bear as tolerate to the operative extremity Utilize crutches as needed Encourage knee range of motion Ice and elevate as needed for pain and swelling Take pain medication as prescribed Take antinausea medication as needed Pain medication can cause constipation. take ogrk-oxp-lmgimst stool softeners and or MiraLAX. Take prescribed Eliquis twice daily for the next 14 days for blood clot prevention May supplement for pain with ibuprofen [id number] as needed No baths or soaks Follow-up in the orthopedic office in 2 weeks Contact the office for any questions or concerns Discharge Attestations Time Spent in Discharge Care*: less than 30 min Quality Metrics Clinical Quality Measures [ No reported AMI, CVA or VTE this stay] Coding Level of Care Code Acute Code for Chg Fwd Diagnoses Left knee DJD M17.12 Chronic neck and back pain M54.2; M54.9; G89.29 Hypertension I10 Chronic inflammatory demyelinating polyneuritis G61.81
[2024-04-21] MEDS: multivitamin therapeutic Tablet 1 TAB PO (08:31)
[2024-04-21] MEDS: calcium carb-vit d 600mg/400unit 1 Tablet 1 EACH PO (08:31)
[2024-04-21] MEDS: apixaban 5 mg Tablet 2.5 MG PO (08:31)
[2024-04-21] MEDS: lisinopril 20 mg Tablet PO (08:31)
[2024-04-21] MEDS: docusate sodium 100 mg Capsule PO (08:31)
[2024-04-21] MEDS: sennosides-docusate Tablet 2 TAB PO (08:31)
[2024-04-21] MEDS: ALPRAZolam 0.5 mg Tablet 1 MG PO (08:31)
[2024-04-21] MEDS: duloxetine 30 mg Capsule PO (08:31)
[2024-04-21] MEDS: iron polysaccharide complex 150 mg Capsule PO (08:31)
[2024-04-21] MEDS: levothyroxine 100 mcg Tablet PO (08:31)
[2024-04-21] MEDS: hydroCHLOROthiazide 25 mg Tablet 12.5 MG PO (08:32)
[2024-04-21] MEDS: mupirocin oint 22 gm 1 APPLIC NASAL (08:32)
[2024-04-21] MEDS: chlorhexidine gluconate 0.12% Btl 473 mL 30 ML MUCOUS MEM (08:32)
--- NOTE | 2024-04-21 09:21 | P.PN_ITS ---
Subjective 2 Subjective: Patient reports he is doing well.Pain is under better control today. Medications: Reviewed: Yes Vitals/I&O/Wt Last Vital Signs Temp 97.9 F 04/21/24 04:00 Pulse 76 04/21/24 04:00 Resp 18 04/21/24 06:22 BP 152/92 04/21/24 04:00 Pulse Ox 97 04/21/24 04:00 O2 Del Method Room Air 04/21/24 04:00 O2 Flow Rate 6 04/20/24 10:15 04/20/24 04/21/24 04/21/24 22:59 06:59 14:59 Intake Total 1468.333 / 2488.333 1083.333 / 3571.666 733.333 / 733.333 Output Total 1600 / 1725 450 / 2175 Balance -131.667 / 763.333 633.333 / 1396.666 733.333 / 733.333 Weight last 48 hrs Weight 136.078 kg Weight 147.418 kg Weight 136.078 kg Physical Exam 2 Narrative: General exam no distress Cardiovascular regular rate and rhythm Lungs clear Abdomen is soft. No obvious organomegaly. Bowel sounds noted exam is deferred Extremities no cyanosis clubbing or edema. Left knee with dressing, clean and dry Urinary Catheter Management: Sanchez: Cath Placed During This Visit: yes, but has since been removed by the nurse Reason for Continuing Indwelling Catheter: Decision to DC Catheter Urinary Catheter Date of Insertion: 04/20/24 Urinary Catheter Time of Insertion: 07:31 Date Urinary Catheter Removed: 04/21/24 Time Urinary Catheter Discontinued: 06:31 Data 04/21/24 04:26 04/21/24 04:26 A&P Assessment and plan (1) Left knee DJD: Patient is postoperative day number one left knee total arthroplasty. Therapy consultations Pain control. He was using oxycodone 30 mg as needed at home. When patient awakens I will discussed with him the frequency of his use. 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 Will need to continue to self cath 4 times daily. I believe he is on Bactrim for prophylaxis but will clarify when I discussed with him. As he is receiving perioperative antibiotics it is not likely he will need this acutely Other medical problems as outlined by past medical history Thank you for this consultation Stable for discharge. Discussed in detail anticoagulation regimen, need, what to watch for, etc. Also discussed his use of pain medication in detail with him and his mother. Attestations 2 Medical Necessity Statement*: as per primary Diagnoses Left knee DJD M17.12 Chronic neck and back pain M54.2; M54.9; G89.29 Hypertension I10 Chronic inflammatory demyelinating polyneuritis G61.81 Time Spent (min) 28
--- NOTE | 2024-04-21 09:21 | PC.CHAP ---
Pastoral Care Encounter/Spiritual Assessment Type of Contact [] Declined director mobile media solutions visit [] Patient/Family/Request visit [] Outpatient visit [] Follow-up visit [] Physician referral [] Code/Alert [] Routine visit [] Staff referral [] Actively dying [] Patient sleeping [] Family support [] [] Out of room [] Palliative care [] [x] Receiving care in room [] Pre-surgical visit [] Trauma [] Long length of stay [] ICU visit [] Other: Relational/Emotional Strength [] Patient feels connected with others/family/visitors/staff [] Distress [] Loneliness/isolation [] Abandonment Spirituality of Patient [] Person of Jojo [] Attends Yarsanism of their Jojo [] Believes in Prayer [] Reads Bible or Worship materials [] There are Spiritual issues to be addressed Tow Mate Interventions [] Prayer [] Active listening [] Non-anxious presence [] Spiritual/emotional support [] Crisis/trauma care [] Spiritual counseling [] Bereavement support [] Provided bereavement packet [] Provided Bible/devotional materials [] Provided toy/stuffed animal, coloring book to patient or family member [] Provided Communion [] Anointing/Arnold [] Salvation [] Completed spiritual assessment [] Other: Impact on Illness or Injury [] Angry [] Fearful [] Anxious [] Often cries [] Exhaustion [] Unable to work [] Unable to attend druze [] Unable to walk/stand [] Unable to read [] Unable to drive [] Unable to eat/drink [] Unable to sleep [] Unable to be with family [] Patient intubated [] Other: Summary Time spent with patient
== END 2024-04-21 11:55 | disposition home health service (06) ==
LOC: MEDSURG 09:48
PROVIDERS: Physician Assistant; Admitting Provider Student in an Organized Health Care Education/Training Program; PCP Family Medicine; Visit Provider Student in an Organized Health Care Education/Training Program
PROC: 8E0Y0CZ Robotic Assisted Procedure of Lower Extremity, Open Approach (ICD-10-PCS; CPT 27447; principal; 2024-04-20 07:00)
DX: M17.12 Unilateral primary osteoarthritis, left knee (principal); I10 Essential (primary) hypertension; E66.01 Morbid (severe) obesity due to excess calories; Z68.38 Body mass index [BMI] 38.0-38.9, adult; E03.9 Hypothyroidism, unspecified
CPT/HCPCS: 20985; 27447; 36415; 51702; 73560; 80048; 85025; 86850; 86900; 97116; 97161; 97165; C1776; G0378; J0131; J0171; J0330; J0690; J1100; J1170; J1885; J2250; J2371; J2405; J2704; J2795; J3010; J3370; J3490; J7120

== ENCOUNTER 2024-04-27 13:36 | Outpatient (RCR) | payer BC, SELFPAY | END 2024-05-11 23:59 | disposition home or self-care (01) | LOC: SPT 13:36 | PROVIDERS: PCP Family Medicine; Visit Provider Student in an Organized Health Care Education/Training Program | DX: M17.12 Unilateral primary osteoarthritis, left knee (principal) | CPT/HCPCS: 97110; 97161 ==

== ENCOUNTER 2024-04-30 08:00 | Oncology outpatient (recurring) (ONCR) | payer BC, SELFPAY ==
[2024-04-29] VITALS (9 sets, daily range): BP systolic 97–153; BP diastolic 59–83; PULSE 60–72; RESP 16–18; TEMP 35.8–36.6; O2SAT 91–95
[2024-04-29] MEDS: sodium chloride 0.9% 250 ML 75 ML IV (09:24)
[2024-04-29] MEDS: acetaminophen 500 mg Tablet 1000 MG PO (09:33)
[2024-04-29] MEDS: diphenhydrAMINE 50 mg/mL SDV 1mL 25 MG IVP (09:34)
[2024-04-29] MEDS: immune globulin (Gamunex-C) 40 GM, Immune Globulin (Gamunex-C) 20 GM, immune globulin (... IV (09:38)
[2024-04-30] MEDS: acetaminophen 500 mg Tablet 1000 MG PO (08:25)
[2024-04-30] MEDS: diphenhydrAMINE 50 mg/mL SDV 1mL 25 MG IVP (08:26)
[2024-04-30] MEDS: immune globulin (Gamunex-C) 40 GM, Immune Globulin (Gamunex-C) 20 GM, immune globulin (... IV (08:41)
[2024-04-30 15:52] VITALS: BP 112/78; PULSE 74; RESP 18; TEMP 36.6; O2SAT 98
== END 2024-05-11 23:59 | disposition home or self-care (01) ==
PROVIDERS: PCP Family Medicine; Visit Provider Internal Medicine Medical Oncology
DX: Z53.9 Procedure and treatment not carried out, unspecified reason; G61.81 Chronic inflammatory demyelinating polyneuritis; Z79.620 Long term (current) use of immunosuppressive biologic
CPT/HCPCS: 96365; 96366; 96375; J1200; J1561; J7050

== ENCOUNTER → 2024-05-05 10:17 | Outpatient (BNVA) | payer BC, SELFPAY | PROVIDERS: PCP Family Medicine; Visit Provider Physician Assistant | DX: T84.033A Mechanical loosening of internal left knee prosthetic joint, initial encounter (principal); Y79.2 Prosthetic and other implants, materials and accessory orthopedic devices associated with adverse incidents; Z96.652 Presence of left artificial knee joint | CPT/HCPCS: 73560; 73565 ==

== ENCOUNTER 2024-05-12 06:30 | Outpatient (RCR) | payer BC, SELFPAY | END 2024-06-11 23:59 | disposition home or self-care (01) | LOC: SPT 06:30 | PROVIDERS: PCP Family Medicine; Visit Provider Student in an Organized Health Care Education/Training Program | DX: M17.12 Unilateral primary osteoarthritis, left knee (principal) | CPT/HCPCS: 97110 ==

== ENCOUNTER 2024-05-21 08:00 | Oncology outpatient (recurring) (ONCR) | payer BC, SELFPAY ==
[2024-05-20] VITALS (10 sets, daily range): BP systolic 114–158; BP diastolic 81–113; PULSE 62–90; RESP 16–18; TEMP 35.9–36.8; O2SAT 94–99
[2024-05-20] MEDS: diphenhydrAMINE 50 mg/mL SDV 1mL 25 MG IVP (08:26)
[2024-05-20] MEDS: acetaminophen 500 mg Tablet 1000 MG PO (08:26)
[2024-05-20] MEDS: sodium chloride 0.9% 250 ML 75 ML IV (08:27)
[2024-05-20] MEDS: FLEXIBLE CONTAINER IV (08:55)
[2024-05-20] MEDS: IMMUNE GLOBULIN IV (08:55)
[2024-05-21] VITALS (9 sets, daily range): BP systolic 96–134; BP diastolic 67–92; PULSE 67–100; RESP 16–18; TEMP 35.9–36.7; O2SAT 92–97
[2024-05-21] MEDS: diphenhydrAMINE 50 mg/mL SDV 1mL 25 MG IVP (08:22)
[2024-05-21] MEDS: acetaminophen 500 mg Tablet 1000 MG PO (08:22)
[2024-05-21] MEDS: sodium chloride 0.9% 250 ML 75 ML IV (08:22)
[2024-05-21] MEDS: FLEXIBLE CONTAINER IV (08:56)
[2024-05-21] MEDS: IMMUNE GLOBULIN IV (08:56)
== END 2024-05-21 23:59 | disposition home or self-care (01) ==
PROVIDERS: PCP Family Medicine; Visit Provider Internal Medicine Medical Oncology
DX: Z53.9 Procedure and treatment not carried out, unspecified reason; G61.81 Chronic inflammatory demyelinating polyneuritis; Z79.620 Long term (current) use of immunosuppressive biologic
CPT/HCPCS: 96365; 96366; 96375; J1200; J1561; J7050

== ENCOUNTER 2024-06-11 08:00 | Oncology outpatient (recurring) (ONCR) | payer BC, SELFPAY ==
[2024-06-10] VITALS (10 sets, daily range): BP systolic 122–152; BP diastolic 80–99; PULSE 71–84; RESP 16–18; TEMP 36.1–36.6; O2SAT 95–97
[2024-06-10] MEDS: acetaminophen 500 mg Tablet 1000 MG PO (09:05)
[2024-06-10] MEDS: diphenhydrAMINE 50 mg/mL SDV 1mL 25 MG IVP (09:18)
[2024-06-10] MEDS: FLEXIBLE CONTAINER IV (10:11)
[2024-06-10] MEDS: IMMUNE GLOBULIN IV (10:11)
[2024-06-11] VITALS (12 sets, daily range): BP systolic 142–156; BP diastolic 88–99; PULSE 68–90; RESP 16–18; TEMP 36.2–36.6; O2SAT 93–100
[2024-06-11] MEDS: acetaminophen 500 mg Tablet 1000 MG PO (08:21)
[2024-06-11] MEDS: diphenhydrAMINE 50 mg/mL SDV 1mL 25 MG IVP (08:22)
[2024-06-11] MEDS: FLEXIBLE CONTAINER IV (08:56)
[2024-06-11] MEDS: IMMUNE GLOBULIN IV (08:56)
== END 2024-06-11 23:59 | disposition home or self-care (01) ==
PROVIDERS: PCP Family Medicine; Visit Provider Internal Medicine Hematology & Oncology
DX: G61.81 Chronic inflammatory demyelinating polyneuritis; Z53.9 Procedure and treatment not carried out, unspecified reason; Z79.899 Other long term (current) drug therapy
CPT/HCPCS: 96365; 96366; 96375; 96413; 96415; J1200; J1561

== ENCOUNTER → 2024-06-16 10:32 | Outpatient (BNVA) | payer BC, SELFPAY | PROVIDERS: PCP Family Medicine; Visit Provider Physician Assistant | DX: Z96.652 Presence of left artificial knee joint (principal) | CPT/HCPCS: 73560; 73565 ==

== ENCOUNTER 2024-07-07 08:00 | Oncology outpatient (recurring) (ONCR) | payer BC, SELFPAY ==
[2024-07-06] VITALS (7 sets, daily range): BP systolic 122–156; BP diastolic 87–93; PULSE 75–99; RESP 16–18; TEMP 36.2–36.6; O2SAT 97–99
[2024-07-06] MEDS: acetaminophen 325 mg Tablet 650 MG PO (08:23)
[2024-07-06] MEDS: diphenhydrAMINE 50 mg/mL SDV 1mL 25 MG IVP (08:23)
[2024-07-06] MEDS: FLEXIBLE CONTAINER IV (08:54)
[2024-07-06] MEDS: IMMUNE GLOBULIN IV (08:54)
[2024-07-07] VITALS (9 sets, daily range): BP systolic 133–158; BP diastolic 82–100; PULSE 77–98; RESP 18; TEMP 36.4–36.6; O2SAT 96–98
[2024-07-07] MEDS: diphenhydrAMINE 50 mg/mL SDV 1mL 25 MG IVP (08:09)
[2024-07-07] MEDS: acetaminophen 325 mg Tablet 650 MG PO (08:09)
[2024-07-07] MEDS: IMMUNE GLOBULIN IV (08:39)
[2024-07-07] MEDS: FLEXIBLE CONTAINER IV (08:39)
== END 2024-07-07 23:59 | disposition home or self-care (01) ==
PROVIDERS: PCP Family Medicine; Visit Provider Internal Medicine Hematology & Oncology
DX: G61.81 Chronic inflammatory demyelinating polyneuritis; Z79.620 Long term (current) use of immunosuppressive biologic; Z53.9 Procedure and treatment not carried out, unspecified reason; Z79.899 Other long term (current) drug therapy
CPT/HCPCS: 96365; 96366; 96375; J1200; J1561

== ENCOUNTER 2024-07-28 08:00 | Oncology outpatient (recurring) (ONCR) | payer BC, SELFPAY ==
[2024-07-27] VITALS (8 sets, daily range): BP systolic 121–144; BP diastolic 79–94; PULSE 76–92; RESP 16–17; TEMP 36.1–36.9; O2SAT 97–99
[2024-07-27] MEDS: acetaminophen 325 mg Tablet 650 MG PO (08:21)
[2024-07-27] MEDS: diphenhydrAMINE 50 mg/mL SDV 1mL 25 MG IVP (08:22)
[2024-07-27] MEDS: IMMUNE GLOBULIN IV (09:07)
[2024-07-27] MEDS: FLEXIBLE CONTAINER IV (09:07)
[2024-07-28] VITALS (9 sets, daily range): BP systolic 120–158; BP diastolic 55–91; PULSE 72–101; RESP 14–17; TEMP 36.1–36.7; O2SAT 94–99
[2024-07-28] MEDS: diphenhydrAMINE 50 mg/mL SDV 1mL 25 MG IVP (08:14)
[2024-07-28] MEDS: acetaminophen 325 mg Tablet 650 MG PO (08:18)
[2024-07-28] MEDS: immune globulin (Gamunex-C) 40 GM, Immune Globulin (Gamunex-C) 20 GM, immune globulin (... IV (08:55)
== END 2024-07-28 23:59 | disposition home or self-care (01) ==
PROVIDERS: PCP Family Medicine; Visit Provider Internal Medicine Medical Oncology
DX: G61.81 Chronic inflammatory demyelinating polyneuritis; Z79.620 Long term (current) use of immunosuppressive biologic; Z53.9 Procedure and treatment not carried out, unspecified reason
CPT/HCPCS: 96365; 96366; 96375; J1200; J1561

== ENCOUNTER 2024-07-30 13:25 | Emergency (ER) | payer BC, SELFPAY ==
[2024-07-30 13:28] VITALS: BP 148/94; PULSE 105; TEMP 36.7; O2SAT 99
--- NOTE | 2024-07-30 13:38 | XR_ITS ---
WS: [id number] Left knee, 3 views, 07/30/2024 Clinical Data: pain, surgery 3 weeks ago Comparison: Bilateral knees, left knee, 06/16/2024. Findings: The arthroplasty components remain in the same position. No periprosthetic fractures or loosening is seen. The soft tissues are normal. XR/XR knee LT 3V* [id number] Impression: Stable left knee arthroplasty.
[2024-07-30 13:53] VITALS: BP 143/93; PULSE 104; RESP 18; O2SAT 98
--- NOTE | 2024-07-30 14:14 | ED_ITS ---
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 He reports that during the operation he was told there was a cyst that had ruptured and cleaned out, he is having pain primarily into the popliteal space that radiates down the left lateral capone. States that after the surgery he had been doing very well and had been continuing his IVIG therapy, but recently over the past few days the pain has gotten so severe where it is made it hard for him to walk. Was prescribed tramadol and oxycodone for pain relief after the incident but has not been taking this as he does not prefer to take narcotic pain meds. He is been taking Tylenol primarily. States he has been doing exercises at home but thinks that these have been making it worse. He is not reporting any anterior knee pain, no issues with the incision site. He is not reporting any calf pain or swelling, or overlying skin color changes. No distal neurovascular symptoms reported. No recent trauma to the knee, has had routine follow-ups that have gone okay without complications. He is not reporting any fevers or warm th/redness/swelling to the left knee joint. MD Complaint: joint pain Onset (ago): day(s) Pain Consistency: constant Location: left Radiation: distal Exacerbating factors: weight bearing and walking Associated symptoms: Deny chest pain, fever(s) or rash Context: recent surgery/procedure (Left TKA on 04/20) Related Data Home Medications Medication Instructions Recorded Confirmed alprazolam 1 mg tablet 1 mg PO TID PRN Anxiety 08/26/20 06/16/24 famotidine 20 mg tablet 20 mg PO DAILY 08/26/20 06/16/24 levothyroxine 100 mcg capsule 100 mcg PO DAILY 08/26/20 06/16/24 lisinopril 20 1 tab PO DAILY 08/26/20 06/16/24 mg-hydrochlorothiazide 12.5 mg tablet mirabegron 25 mg tablet,extended 25 mg PO DAILY 11/11/20 06/16/24 release 24 hr (Myrbetriq) ciprofloxacin HCl 500 mg tablet 500 mg PO BID PRN infection 11/08/23 06/16/24 (Cipro) oxycodone 30 mg tablet 30 mg PO PRN PRN Pain 04/06/24 05/05/24 tamsulosin 0.4 mg capsule 0.4 mg PO DAILY 04/06/24 06/16/24 duloxetine 30 mg capsule,delayed 1 mg PO DAILY 04/17/24 06/16/24 release silodosin 4 mg capsule 4 mg PO DAILY 04/17/24 06/16/24 trimethoprim 100 mg tablet 100 mg PO DAILY 04/17/24 06/16/24 Previous Rx's Medication Instructions Recorded immune glob G 40 gram/400 See Rx Instructions IV .COMPLEX 6 03/09/24 mL(10%)-gly-IgA ave 46 mcg/mL months injection soln (Gamunex-C) tizanidine 4 mg tablet 4 mg PO TID PRN Muscle Spasticity 07/21/24 #90 tabs Allergies Allergy/AdvReac Type Severity Reaction Status Date / Time hydrocodone Allergy Mild makes him Verified 07/30/24 13:35 feel crazy morphine Allergy ADR-Headach Verified 07/30/24 13:35 e Review of Systems General: Reports: 10 or more systems reviewed and unremarkable except in HPI and below Const: Denies: fever(s) or chills Card: Denies: chest pain Resp: Denies: dyspnea or productive cough GI: Denies: abdominal pain, nausea, vomiting or diarrhea : Denies: flank pain Musc: Reports: joint pain and other (No calf pain or swelling); Denies: neck pain, back pain, extremity pain, extremity swelling, joint swelling, joint redness, joint warmth, limited range of motion or muscle weakness Skin/Breast: Denies: rash or erythema Neuro: Denies: headache(s), numbness in extremities or weakness in extremities PFSH ED PFSH: Medical History Chronic inflammatory demyelinating polyneuritis Adrenal nodule Chronic neck and back pain Hypothyroid Hypertension Surgical History Hx laparoscopic cholecystectomy 2016 Hx of knee surgery left History of hand surgery left hand 2001 Previous back surgery L4/5 Family History Unknown Hypertension Social History Smoking and tobacco/nicotine status: never used tobacco/nicotine Alcohol intake: current Alcohol intake frequency: holidays/special occasions only Physical Exam Const: COMMON NORMALS: no acute distress, patient oriented x3, no limitations, healthy appearing, alert and well nourished OTHER: Antalgic gait noted walking into vertical flow HENMT: COMMON NORMALS: normocephalic and atraumatic HEAD & SCALP: normocephalic and atraumatic Neck/C-Spine: COMMON NORMALS: full ROM, supple and no meningeal signs Resp: COMMON NORMALS: normal respiratory effort, No use of accessory muscles and clear to auscultation bilaterally AUSCULTATION: clear to auscultation bilaterally Cardio: COMMON NORMALS: regular rate and regular rhythm RATE: regular rate RHYTHM: regular rhythm Extremity: COMMON NORMALS: normal to inspection, full ROM, capillary refill normal, no joint enlargement and no clubbing, cyanosis or edema NARRATIVE EXTREMITY EXAM: Well-healed anterior scar to left knee. He is tender to palpation in the left popliteal space, with no palpable cord or mass. His left calf is nontender to palpation with no swelling noted. No redness to the left knee joint or left lower extremity. DP/PT pulses are palpable. Some chronic venous stasis changes overlying the left capone, however no pitting edema. The anterior knee joint is diffusely palpated and nontender. Full active and passive range of motion at the left knee. No joint laxity. Distal neurovascular status intact. Neuro: COMMON NORMALS: patient oriented x3, moves all extremities, no focal motor deficits and no sensory deficits noted SENSORIUM/ORIENTATION: Yes alert MENINGEAL SIGNS: Yes no meningeal signs Skin: COMMON NORMALS: no rashes or lesions noted GENERAL SKIN EXAM: no rashes or lesions noted Course Vital Signs: Vital signs: Vital Signs Temperature 98.0 F 07/30/24 13:28 Pulse Rate 88 07/30/24 15:27 Respiratory Rate 16 07/30/24 15:27 Blood Pressure 146/98 07/30/24 15:27 Pulse Oximetry 98 07/30/24 15:27 Oxygen Delivery Me thod Room Air 07/30/24 15:27 MDM - Extremity (Nontraumatic) Medical Decision Making Patient is about 3 months postop from left TKA, having pain in the popliteal space that has been worsening over the past few days. He has since finished physical therapy and have routine follow-ups that have been without compli cations. No trauma was reported. No distal neurovascular symptoms were reported and he did not have any physical exam findings consistent with a DVT. However ultrasound was obtained that ruled this out in his knee x-ray did not demonstrate any acute findings, specifically stating that his hardware is Stable. Next thing we will have him do his follow back up with orthopedics, if this is nerve related he can be referred to neurology from their or if he has any new or worsening symptoms he is strongly encouraged to come back to the ED for blood work or even a CT. He may require an MRI and we will have him continuing alternating pain medications at home and encouraging range of motion. Here in the ER I have no concern for a septic joint as there is no warmth, redness, swelling, or fevers. He agrees with this plan, will be discharged at this time. Lab Data Radiology Impressions Knee X-Ray 07/30/24 13:38 Impression: Stable left knee arthroplasty. All radiology interpretation(s) finalized by discharge Discharge Plan Discharge Patient Disposition: Home Clinical Impression: Postoperative pain of left knee Condition: Stable Prescriptions: No Action levothyroxine 100 mcg capsule 100 mcg PO DAILY lisinopril-hydrochlorothiazide 20-12.5 mg tablet 1 tab PO DAILY famotidine 20 mg tablet 20 mg PO DAILY alprazolam 1 mg tablet 1 mg PO TID PRN (Reason: Anxiety) ciprofloxacin HCl [Cipro] 500 mg tablet 500 mg PO BID PRN (Reason: infection) tamsulosin 0.4 mg capsule 0.4 mg PO DAILY oxycodone 30 mg tablet 30 mg PO PRN PRN (Reason: Pain) Hold Instructions: Resume on 04/28/24. Gamunex-C 40 gram/400 mL (10 %) solution See Rx Instructions IV .COMPLEX 180 Days Rx Instructions: intravenously; 500mg/kg/per day for 2 days & every 3 weeks thereafter tizanidine 4 mg tablet 4 mg PO TID PRN (Reason: Muscle Spasticity) Qty: 90 3RF Rx Instructions: TAKE 1 TABLET BY MOUTH THREE TIMES DAILY NEEDED FOR muscle spasticity mirabegron [Myrbetriq] 25 mg Tablet Extended Release 24 Hr 25 mg PO DAILY duloxetine 30 mg capsule,delayed release(DR/EC) 1 mg PO DAILY Rx Instructions: take 1 capsule BY MOUTH EVERY DAY silodosin 4 mg capsule 4 mg PO DAILY trimethoprim 100 mg tablet 100 mg PO DAILY Discharge Orders: Discharge ED (Routine); Ordered 07/30/24 Ordered By: Almas Pope Referrals: Man Vicente MD [Primary Care Provider] - Patient Instructions: Pain Management, Opioid Safety Activity Restrictions/Additional Instructions: Follow-up with orthopedics as we discussed for further evaluation. Continue alternating pain medications at home. Encourage range of motion and exercises as tolerated. If you have any high fevers, warmth/redness/swelling of your left knee joint, or other concerning symptoms please return to the emergency department. Coding Level of Care Code ED Gate Watchman for Sakshi Menjivar
[2024-07-30 14:29] VITALS: BP 137/91; PULSE 101; RESP 16; O2SAT 97
--- NOTE | 2024-07-30 14:39 | USCV_ITS ---
Leidy Salinas Age: 49 Gender: M : 1975 Exam Date: 07/30/2024 15:02 Ordering Phys: Almas Pope Technologist: Exam [place] [facility] [place] Indication: LT LEG PAIN AND SWELLING POST OP KNEEE SURG IN APR PROCEDURES: Venous duplex imaging was performed in only the left lower extremity. The following venous structures were evaluated: common femoral vein, profunda vein, proximal portion of the greater saphenous vein, superficial femoral vein, and the popliteal vein. In addition, the posterior tibial and peroneal trunk were evaluated. FINDINGS: Normal 2-D Doppler and augmentation and compressibility throughout the lower extremity venous structures. Additional imaging through the proximal calf veins also reveals no thrombus. Limited evaluation of the greater saphenous vein is patent with no thrombus. CONCLUSIONS No evidence of left lower extremity DVT. Steven Tse MD (Electronically Signed) Final Date: 30 July 2024 17:29 S
[2024-07-30 15:27] VITALS: BP 146/98; PULSE 88; RESP 16; O2SAT 98
[2024-07-30 16:08] VITALS: BP 155/98; PULSE 100; RESP 16; O2SAT 97
== END 2024-07-30 16:09 | disposition home or self-care (01) ==
PROVIDERS: Emergency Provider Physician Assistant; PCP Family Medicine
DX: G89.18 Other acute postprocedural pain (principal); Z96.652 Presence of left artificial knee joint; I10 Essential (primary) hypertension
CPT/HCPCS: 73562; 93971; 99284

== ENCOUNTER → 2024-08-11 09:58 | Outpatient (BNVA) | payer BC, SELFPAY | PROVIDERS: PCP Family Medicine; Visit Provider Student in an Organized Health Care Education/Training Program | DX: Z96.652 Presence of left artificial knee joint (principal); R03.0 Elevated blood-pressure reading, without diagnosis of hypertension | CPT/HCPCS: 73560; 73565 ==

== ENCOUNTER → 2024-09-07 09:18 | Outpatient (BNVA) | payer BC, SELFPAY | PROVIDERS: PCP Family Medicine; Visit Provider Internal Medicine | DX: E03.9 Hypothyroidism, unspecified (principal) | CPT/HCPCS: 36415; 84439; 84443 ==

== ENCOUNTER 2024-09-10 09:00 | Oncology outpatient (recurring) (ONCR) | payer BC, SELFPAY ==
[2024-08-19] MEDS: diphenhydrAMINE 50 mg/mL SDV 1mL 25 MG IVP (08:39)
[2024-08-19] MEDS: acetaminophen 325 mg Tablet 650 MG PO (08:44)
[2024-08-19] MEDS: FLEXIBLE CONTAINER IV (09:10)
[2024-08-19] MEDS: IMMUNE GLOBULIN IV (09:10)
[2024-08-19 09:33] VITALS: BP 143/88; PULSE 91; RESP 18; TEMP 36.4; O2SAT 95
[2024-08-19 09:50] VITALS: BP 135/84; PULSE 76; RESP 18; TEMP 36.1; O2SAT 98
[2024-08-19 11:40] VITALS: BP 156/88; PULSE 76; RESP 18; TEMP 36.6
[2024-08-19 11:45] VITALS: BP 124/78; PULSE 76; RESP 17; TEMP 36.4; O2SAT 98
[2024-08-20] MEDS: diphenhydrAMINE 50 mg/mL SDV 1mL 25 MG IVP (08:18)
[2024-08-20] MEDS: acetaminophen 325 mg Tablet 650 MG PO (08:19)
[2024-08-20 08:32] VITALS: BP 154/94; PULSE 99; RESP 18; TEMP 36.4; O2SAT 100
[2024-08-20] MEDS: IMMUNE GLOBULIN IV (08:47)
[2024-08-20] MEDS: FLEXIBLE CONTAINER IV (08:47)
[2024-08-20 09:12] VITALS: BP 137/91; PULSE 83; RESP 18; TEMP 36.3
[2024-08-20 09:20] VITALS: BP 137/91; PULSE 76; RESP 18; TEMP 36.6; O2SAT 98
[2024-08-20 11:10] VITALS: BP 139/96; PULSE 83; RESP 18; TEMP 36.6; O2SAT 99
[2024-09-09] MEDS: sodium chloride 0.9% 250 ML 75 ML IV (08:38)
[2024-09-09] MEDS: diphenhydrAMINE 50 mg/mL SDV 1mL 25 MG IVP (08:38)
[2024-09-09] MEDS: acetaminophen 325 mg Tablet 650 MG PO (08:39)
[2024-09-09 09:09] VITALS: BP 127/87; PULSE 83; RESP 16; TEMP 36.3; O2SAT 96
[2024-09-09] MEDS: FLEXIBLE CONTAINER IV (09:09)
[2024-09-09] MEDS: IMMUNE GLOBULIN IV (09:09)
[2024-09-09 09:25] VITALS: BP 142/92; PULSE 77; RESP 16; TEMP 36.8; O2SAT 97
[2024-09-09 10:00] VITALS: BP 121/80; PULSE 84; RESP 16; TEMP 36.4; O2SAT 96
[2024-09-09 11:25] VITALS: BP 124/84; PULSE 88; RESP 16; TEMP 36.4; O2SAT 96
[2024-09-09 17:08] VITALS: BP 122/80; PULSE 84; RESP 16; TEMP 36.4; O2SAT 96
[2024-09-10] MEDS: sodium chloride 0.9% 250 ML 100 ML IV (08:51)
[2024-09-10] MEDS: acetaminophen 325 mg Tablet 650 MG PO (08:51)
[2024-09-10] MEDS: diphenhydrAMINE 50 mg/mL SDV 1mL IVP (08:55)
[2024-09-10] MEDS: IMMUNE GLOBULIN IV (09:31)
[2024-09-10] MEDS: FLEXIBLE CONTAINER IV (09:31)
[2024-09-10 09:39] VITALS: BP 121/76; PULSE 91; RESP 16; TEMP 36.6; O2SAT 95
[2024-09-10 10:21] VITALS: BP 118/76; PULSE 80; RESP 16; TEMP 36.3; O2SAT 96
[2024-09-10 10:55] VITALS: BP 120/82; PULSE 84; RESP 16; TEMP 36.3; O2SAT 96
[2024-09-10 12:10] VITALS: BP 148/90; PULSE 84; RESP 16; TEMP 36.6; O2SAT 96
[2024-09-10 16:07] VITALS: BP 148/90; PULSE 84; RESP 16; TEMP 36.6; O2SAT 96
== END 2024-09-10 23:59 | disposition home or self-care (01) ==
PROVIDERS: PCP Family Medicine; Visit Provider Internal Medicine
DX: Z53.9 Procedure and treatment not carried out, unspecified reason; G61.81 Chronic inflammatory demyelinating polyneuritis; Z79.899 Other long term (current) drug therapy
CPT/HCPCS: 96365; 96366; 96375; J1200; J1561; J7050

== ENCOUNTER 2024-10-08 08:30 | Oncology outpatient (recurring) (ONCR) | payer BC, SELFPAY ==
[2024-10-07 08:15] VITALS: BP 132/84; PULSE 84; RESP 18; TEMP 36.4; O2SAT 98
[2024-10-07] MEDS: acetaminophen 325 mg Tablet 650 MG PO (08:47)
[2024-10-07] MEDS: diphenhydrAMINE 50 mg/mL SDV 1mL IVP (08:47)
[2024-10-07 09:00] VITALS: BP 134/84; PULSE 84; RESP 17; TEMP 36.4; O2SAT 98
[2024-10-07] MEDS: IMMUNE GLOBULIN IV (09:02)
[2024-10-07] MEDS: FLEXIBLE CONTAINER IV (09:02)
[2024-10-07 09:20] VITALS: BP 145/89; PULSE 79; RESP 17; TEMP 36.3; O2SAT 97
[2024-10-07 16:18] VITALS: BP 142/87; PULSE 79; RESP 18; TEMP 36.4; O2SAT 98
[2024-10-08] MEDS: acetaminophen 325 mg Tablet 650 MG PO (08:30)
[2024-10-08] MEDS: diphenhydrAMINE 50 mg/mL SDV 1mL IVP (08:31)
[2024-10-08] MEDS: FLEXIBLE CONTAINER IV (09:26)
[2024-10-08] MEDS: IMMUNE GLOBULIN IV (09:26)
[2024-10-08 09:45] VITALS: BP 122/75; PULSE 83; RESP 17; TEMP 36.4; O2SAT 95
[2024-10-08 10:45] VITALS: BP 132/88; PULSE 77; RESP 17; TEMP 36.4; O2SAT 96
[2024-10-08 11:15] VITALS: BP 158/85; PULSE 82; RESP 18; TEMP 37; O2SAT 97
[2024-10-08 12:15] VITALS: BP 158/84; PULSE 82; RESP 17; TEMP 36.9; O2SAT 97
== END 2024-10-09 23:59 | disposition home or self-care (01) ==
PROVIDERS: PCP Family Medicine; Visit Provider Internal Medicine
DX: Z53.9 Procedure and treatment not carried out, unspecified reason; G61.81 Chronic inflammatory demyelinating polyneuritis; Z79.620 Long term (current) use of immunosuppressive biologic
CPT/HCPCS: 96365; 96366; J1200; J1561

== ENCOUNTER 2024-10-12 08:31 | Inpatient (IN) | payer BC, SELFPAY ==
[2024-10-12] VITALS (10 sets, daily range): BP systolic 105–131; BP diastolic 54–99; PULSE 95–113; RESP 18–20; TEMP 36.1–36.5; O2SAT 94–100; BMI 37.8
--- NOTE | 2024-10-12 09:08 | W.ED.MALEGU ---
HPI - Male Genitourinary General: Chief complaint: ER Hold Stated complaint: right side & abd pain, unable to go to bathroom Time Seen by Provider: 10/12/24 09:00 History of Present Illness: 49-year-old male presents emergency room with right-sided pain abdominal pain radiating from the flank down to the groin. Patient has a history of Guillain-Chavez? and has neurogenic bladder he self caths as result he is contracted many urinary tract and prostate infections in the past he is recently finished a course of ciprofloxacin. He has not had any fever sweats or chills. He has not noticed any blood in the urine. He feels bloated like he is unable to pass any urine at all he is usually able to pass some and then self caths to completely empty. Associated symptoms: Reports dysuria and nausea Related Data Home Medications ?Medication ?Instructions ?Recorded ?Confirmed alprazolam 1 mg tablet 1 mg PO TID PRN Anxiety 08/26/20 10/12/24 famotidine 20 mg tablet 20 mg PO DAILY 08/26/20 10/12/24 levothyroxine 100 mcg capsule 100 mcg PO DAILY 08/26/20 10/12/24 lisinopril 20 1 tab PO DAILY 08/26/20 10/12/24 mg-hydrochlorothiazide 12.5 mg tablet mirabegron 25 mg tablet,extended 25 mg PO DAILY 11/11/20 10/12/24 release 24 hr (Myrbetriq) tamsulosin 0.4 mg capsule 0.4 mg PO DAILY 04/06/24 10/12/24 duloxetine 30 mg capsule,delayed 30 mg PO DAILY 04/17/24 10/12/24 release trimethoprim 100 mg tablet 100 mg PO DAILY 04/17/24 10/12/24 ergocalciferol (vitamin D2) 1,250 1,250 mcg PO Q7D 10/12/24 10/12/24 mcg (50,000 unit) capsule (Vitamin D2) finasteride 5 mg tablet 5 mg PO DAILY 10/12/24 10/12/24 glucosamine sulf dipot 1 cap PO BID 10/12/24 10/12/24 chlr,msm,chond 550 mg-C 30 mg-prem 1 mg capsule (Glucosamine Chondroitin) ibuprofen 800 mg tablet 800 mg PO TID PRN Pain 10/12/24 10/12/24 tramadol 50 mg tablet 100 mg PO Q6H PRN Pain 10/12/24 10/12/24 Previous Rx's ?Medication ?Instructions ?Recorded tizanidine 4 mg tablet 4 mg PO TID PRN Muscle Spasticity 09/01/24 #90 tabs immune glob G 40 gram/400 See Rx Instructions IV .COMPLEX 12 09/09/24 mL(10%)-gly-IgA ave 46 mcg/mL months injection soln (Gamunex-C) Allergies Allergy/AdvReac Type Severity Reaction Status Date / Time hydrocodone Allergy Mild makes him Verified 09/04/24 14:12 feel crazy morphine Allergy ADR-Headach Verified 09/04/24 14:12 e Review of Systems Const: Denies: fever(s) or chills Card: Denies: chest pain Resp: Denies: dyspnea GI: Reports: abdominal pain and nausea : Reports: flank pain, dysuria and urinary dribbling; Denies: urinary frequency or urinary urgency Musc: Denies: neck pain or back pain Skin/Breast: Denies: rash PFSH ED PFSH: Medical History Prostatic hypertrophy Lumbar stenosis with neurogenic claudication 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, [id number] and sensory deficits, in 10/2024 getting IVIG q 3 weeks Polyneuropathy Cervical spondylosis with radiculopathy Lumbar disc disease with radiculopathy Transverse myelitis Chronic inflammatory demyelinating polyneuritis Adrenal nodule 09/2023 5mm Chronic neck and back pain Hypothyroid Hypertension Surgical History Status post total left knee replacement using cement (04/2024) Dr Landry Status post carpal tunnel release right 08/03, left 05/04, right 10/30, left 11/30 Status post lumbar laminectomy (05/2023) Dr Baez, L3-4 & L4-5 with partial facetectomies History of implanted electronic device Bladder stimulator implanted in the right lower back History of decompression of ulnar nerve (2022) right 08/03, left 05/04 Hx laparoscopic cholecystectomy 2016 Hx of knee surgery left History of hand surgery left hand 2001 Previous back surgery L4/5 Family History Other Hypertension Social History Smoking and tobacco/nicotine status: former use of tobacco/nicotine Alcohol intake: current Alcohol intake frequency: holidays/special occasions only Substance/Drug Use: never Marital status: Physical Exam Const: GENERAL APPEARANCE: cooperative ORIENTATION/CONSCIOUSNESS: Yes awake, Yes oriented to person, Yes oriented to place and Yes oriented to time HENMT: COMMON NORMALS: normocephalic, atraumatic and hearing grossly normal bilaterally HEAD & SCALP: normocephalic and atraumatic Resp: COMMON NORMALS: normal respiratory effort, No retractions, No use of accessory muscles and clear to auscultation bilaterally AUSCULTATION: clear to auscultation bilaterally Cardio: COMMON NORMALS: regular rate, regular rhythm and No murmurs present (Cardio) RATE: regular rate RHYTHM: regular rhythm GI: COMMON NORMALS: Soft to palpation and No hepatosplenomegaly present AUSCULTATION: Yes normoactive bowel sounds PALPATION: Yes Soft to palpation, No Tenderness to palpation present (GI), No Guarding due to palpation present (GI) and Yes No hepatosplenomegaly present : COMMON NORMALS: Yes no CVA tenderness BLADDER/KIDNEY EXAM: Yes no CVA tenderness Back/Pelvis: COMMON NORMALS: no CVA tenderness Extremity: COMMON NORMALS: normal to inspection, capillary refill normal, no clubbing, cyanosis or edema, no calf tenderness and no pedal edema Neuro: SENSORIUM/ORIENTATION: Yes oriented to person, Yes oriented to place and Yes oriented to time Skin: COMMON NORMALS: no rashes or lesions noted GENERAL SKIN EXAM: no rashes or lesions noted Course Vital Signs: Vital signs: Vital Signs Temperature 98.1 F 10/16/24 11:34 Pulse Rate 73 10/16/24 11:34 Respiratory Rate 18 10/16/24 11:34 Blood Pressure 132/86 10/16/24 11:34 Pulse Oximetry 100 10/16/24 11:34 Oxygen Delivery Me thod Room Air 10/16/24 11:34 MDM - Male Medical Decision Making CT shows free air with acute peritonitis elevated white count perforated diverticulitis his source from the sigmoid colon consulted Dr. Benalcazar admit to the hospitalist. Dr. Armstrong is seen the patient. After reviewing he is decided to proceed to surgery. Dr. Nunes is aware as well. Lab Data 10/16/24 04:46 10/16/24 04:46 Radiology Impressions Abdomen/Pelvis CT 10/12/24 10:03 IMPRESSION: 1. Significant amount of intraperitoneal free air. Free air is secondary to an acute inflammatory process involving the sigmoid colon with perforation. There is a large amount of free air also in the RIGHT lower quadrant with numerous foci scattered throughout the peritoneal cavity. There is marked asymmetric wall thickening of the sigmoid with a perforation identified. Most consistent with severe sigmoid diverticulitis. Underlying neoplasm should also be excluded. 2. Small amount of free fluid in the pelvis. Hounsfield units are slightly increased suggests that this may be GI content. 3. Normal appendix. 4. Prior cholecystectomy. Notified Eron Mai DO at 10/12/2024 11:43 AM. Chest X-Ray 10/15/24 09:25 IMPRESSION: No acute findings. Laboratory Results WBC 17.12 10^3/uL (3.29-11.43) H 10/12/24 09:30 RBC 4.82 10^6/uL (3.85-5.65) 10/12/24 09:30 Hgb 14.50 g/dL (11.27-16.99) 10/12/24 09:30 Hct 43.4 % (37-53) 10/12/24 09:30 MCV 90.0 fl (82-101) 10/12/24 09:30 MCH 30.1 pg (27-33) 10/12/24 09:30 MCHC 33.4 g/dL (30-55) 10/12/24 09:30 RDW 14.6 % (12.1-15.1) 10/12/24 09:30 Plt Count 175 10^3/cmm (157-399) 10/12/24 09:30 MPV 9.0 fL (7.4-10.4) 10/12/24 09:30 Neut % (Auto) 88.6 % 10/12/24 09:30 Lymph % (Auto) 5.1 % 10/12/24 09:30 [place] % (Auto) 5.6 % 10/12/24 09:30 Eos % (Auto) 0.1 % 10/12/24 09:30 Baso % (Auto) 0.2 % 10/12/24 09:30 Neut # (Auto) 15.16 10^3/uL (1.8-7.7) H 10/12/24 09:30 Lymph # (Auto) 0.9 10^3/uL (0.8-4.8) 10/12/24 09:30 [place] # (Auto) 1.0 10^3/uL (0.2-0.9) H 10/12/24 09:30 Eos # (Auto) 0.0 10^3/uL (0.0-0.8) 10/12/24 09:30 Baso # (Auto) 0.0 10^3/uL (0.0-0.1) 10/12/24 09:30 Nucleated RBC % (auto) 0 % 10/12/24 09:30 Nucleated RBCs # 0.0 /100WBC 10/12/24 09:30 Sodium 135 mmol/L (136-145) L 10/12/24 09:30 Potassium 3.8 mmol/L (3.5-5.1) 10/12/24 09:30 Chloride 100 mmol/L (98-107) 10/12/24 09:30 Carbon Dioxide 21 mmol/L (22-29) L 10/12/24 09:30 Anion Gap 17.8 (5-19) 10/12/24 09:30 BUN 30 mg/dL (6-20) H 10/12/24 09:30 Creatinine 1.6 mg/dL (0.7-1.2) H 10/12/24 09:30 GFR Calculation 45.8 mL/min (90-130) L 10/12/24 09:30 Glucose 115 mg/dL (65-115) 10/12/24 09:30 Calculated Osmolality 287 mOsm/kg (285-295) 10/12/24 09:30 Calcium 9.2 mg/dL (8.5-10.5) 10/12/24 09:30 Total Bilirubin 0.7 mg/dL (0.15-1.2) 10/12/24 09:30 AST 28 U/L (0-40) 10/12/24 09:30 ALT 27 U/L (0-41) 10/12/24 09:30 Alkaline Phosphatase 111 U/L (40-130) 10/12/24 09:30 C-Reactive Protein 105.5 mg/L (0.0-4.9) H 10/12/24 09:30 Total Protein 8.9 g/dL (6.6-8.7) H 10/12/24 09:30 Albumin 4.0 g/dL (3.5-5.2) 10/12/24 09:30 Globulin 4.9 g/dL (1.3-4.6) H 10/12/24 09:30 Lipase 42 U/L (13-60) 10/12/24 09:30 Procalcitonin 0.91 ng/mL (0-0.5) H 10/12/24 09:30 Urine Color Dark yellow (Yellow) A 10/12/24 09:22 Urine Appearance Cloudy (CLEAR) A 10/12/24 09:22 Urine pH 5.0 (5-7) 10/12/24 09:22 Ur Specific [place] 1.035 (1.005-1.030) H 10/12/24 09:22 Urine Protein 2+ (Negative) A 10/12/24 09:22 Urine Glucose (UA) Negative (Normal) 10/12/24 09:22 Urine Ketones 1+ (Negative) H 10/12/24 09:22 Urine Blood Negative (Negative) 10/12/24 09:22 Urine Nitrate Negative (Negative) 10/12/24 09:22 Urine Bilirubin 1+ (Negative) H 10/12/24 09:22 Urine Urobilinogen 2.0 mg/dL (Negative) H 10/12/24 09:22 Ur Leukocyte Esterase 1+ (Negative) A 10/12/24 09:22 Urine RBC None /hpf (0-2) 10/12/24 09:22 Urine WBC 5-10 /hpf (0-5) H 10/12/24 09:22 Ur Squamous Epith Cells 0-4 /hpf (0-5) H 10/12/24 09:22 Amorphous Sediment Not Reportable 10/12/24 09:22 Urine Bacteria 1+ /hpf (NONE) H 10/12/24 09:22 Coarse Granular Casts 0-4 /lpf H 03/03/25 09:22 All radiology interpretation(s) finalized by discharge Discharge Plan Discharge Patient Disposition: Admitted As Inpatient Admit Provider: Almas Armstrong Clinical Impression: Perforated diverticulum of large intestine, History of Guillain-Wing syndrome, Intermittent self-catheterization of bladder, Sepsis Condition: Stable Coding Level of Care Code ED [facility] Setter for Sakshi Menjivar
[2024-10-12 09:28] LABS: Bilirubin Urine 1+ (Negative); Blood Urine Negative (Negative); Glucose Urine UA Negative (Normal); Ketones Urine 1+ (Negative); Leukocyte Esterase Urine 1+ (Negative); Nitrate Urine Negative (Negative); Protein Urine 2+ (Negative); Urine Appearance Cloudy (CLEAR); Urine Color Dark Yellow (Yellow)
[2024-10-12 09:35] LABS: Specific Gravity, Urine 1.035 (1.005-1.030); UA Manual Slide Review YES
[2024-10-12 09:43] LABS: Basophils % 0.2 %; Eosinophils % 0.1 %; Hematocrit 43.4 % (37-53); Lymphocytes # 0.9 10^3/uL (0.8-4.8); Lymphocytes % 5.1 %; Mean Corpuscular HGB Conc 33.4 g/dL (30-55); Mean Corpuscular Hemoglobin 30.1 pg (27-33); Monocytes % 5.6 %; Neutrophils # 15.16 10^3/uL (1.8-7.7); Neutrophils % 88.6 %; Nucleated Red Blood Cells % 0 %; Platelet Count 175 10^3/cmm (157-399); Red Blood Count 4.82 10^6/uL (3.85-5.65); Red Cell Distribution Width 14.6 % (12.1-15.1); White Blood Count 17.12 10^3/uL (3.29-11.43)
[2024-10-12] MEDS: ketorolac 30 mg/mL INJ IVP (09:49)
[2024-10-12] MEDS: ondansetron 2 mg/ML SDV 2 mL 4 MG IVP ×2 (09:50→12:09)
[2024-10-12 10:00] LABS: Add Urine Microscopic? YES; Squamous Epithelial Cell Urine 0-4 /hpf (0-5)
[2024-10-12 10:01] LABS: Add Urine Culture? No; Bacteria Urine 1+ /hpf; Coarse Granular Casts Urine 0-4 /lpf
--- NOTE | 2024-10-12 10:03 | CT_ITS ---
WS: [id number] CT ABDOMEN AND PELVIS NONCONTRAST HISTORY: flank pain TECHNIQUE: Imaging performed through the abdomen and pelvis. Coronal and sagittal reformats are submitted. All CT scans at [facility] use at least one of these dose optimization techniques: automated exposure control; mA and/or kV adjustment per patient size (includes targeted exams where dose is matched to clinical indication); or iterative reconstruction. DLP: 1288.23 mGy.cm COMPARISON: 10/01/2023 Lower thorax: Lung bases are clear. Visualized heart is normal. No hiatal hernia. Liver: Normal size liver. No mass or bile duct dilatation. Gallbladder: Prior cholecystectomy. Pancreas: Normal size and attenuation. Normal pancreatic duct. No pancreatitis or mass. Spleen: Spleen is measuring top normal size at 14.3 cm. Numerous granulomata. Adrenal glands: Normal. No mass. Right kidney: Normal size kidney with no mass or hydronephrosis. Left kidney: Normal size kidney with no mass or hydronephrosis. Focal area of decreased attenuation in the mid kidney was noted to be a cyst on a prior study from 2021. Aorta: Normal abdominal aorta, no aneurysm or atherosclerosis. Moderate amount of free air is noted. Numerous foci of air in the upper abdomen surrounding the visceral organs. There are a few scattered foci of air in the central mesentery. GI tract: Stomach is not distended. No small bowel obstruction. The appendix is normal. Increased fluid in the ascending colon. Increasing diverticular disease in the descending and sigmoid colon. Acute, severe inflammatory changes surrounding the sigmoid colon. Asymmetric wall thickening of the sigmoid. Wall measures up to 2.2 cm. Innumerable diverticula with extensive free air. There is a large amount of inflammation surrounding the sigmoid colon. Extensive free air in the RIGHT lower quadrant. There is free fluid in the pelvis. No well-formed abscess collection. There is a loop of small bowel closely associated with the sigmoid diverticulosis with perforation. Abdominal wall: Negative. No hernia. Pelvis: Small amount of free fluid in the pelvis. Urinary bladder is minimally distended. Osseous structures: Unremarkable. CT/CT kidney stone 60027 IMPRESSION: 1. Significant amount of intraperitoneal free air. Free air is secondary to an acute inflammatory process involving the sigmoid colon with perforation. There is a large amount of free air also in the RIGHT lower quadrant with numerous f oci scattered throughout the peritoneal cavity. There is marked asymmetric wall thickening of the sigmoid with a perforation identified. Most consistent with severe sigmoid diverticulitis. Underlying neoplasm should also be excluded. 2. Small amount of free fluid in the pelvis. Hounsfield units are slightly inc reased suggests that this may be GI content. 3. Normal appendix. 4. Prior cholecystectomy. Notified Eron Mai DO at 10/12/2024 11:43 AM.
[2024-10-12 10:07] LABS: Alanine Aminotransferase 27 U/L (0-41); Alkaline Phosphatase 111 U/L (40-130); Anion Gap 17.8 (5-19); Aspartate Amino Transferase 28 U/L (0-40); Blood Urea Nitrogen 30 mg/dL (6-20); Calcium 9.2 mg/dL (8.5-10.5); Carbon Dioxide 21 mmol/L (22-29); Chloride 100 mmol/L (98-107); Creatinine Clr Calc Pharmacy 79.4541; Globulin 4.9 g/dL (1.3-4.6); Glomerular Filtration Rate 45.8 mL/min (90-130); Glucose 115 mg/dL (65-115); Lipase 42 U/L (13-60); Osmolality Calculated 287 mOsm/kg (285-295); Potassium 3.8 mmol/L (3.5-5.1); Sodium 135 mmol/L (136-145); Total Bilirubin 0.7 mg/dL (0.15-1.2); Total Protein 8.9 g/dL (6.6-8.7)
[2024-10-12] MEDS: piperacillin-tazobactam 3.375 GM in sodium chloride 0.9% (plus) 50 ML IV ×2 (10:43→17:36)
[2024-10-12] MEDS: metroNIDAZOLE IV 500 MG/100 ML PREMIX 100 MG IV ×2 (11:56→19:39)
[2024-10-12] MEDS: ciprofloxacin 400 MG/200 ML PREMIX 200 MG IV (11:58)
[2024-10-12] MEDS: morphine 4 mg/mL SDV 1 mL IVP ×3 (12:08→16:55)
--- NOTE | 2024-10-12 13:15 | PM.CONSULT ---
Providers/Reason For Consult Consulting Physician/Specialty*: General Surgery Reason for Consult*: perforated acute diverticulitis Primary Care Provider: Man Vicente MD History of Present Illness History of Present Illness Leidy Salinas is a 49 year old male who has multiple medical comorbidities including history of Guillain-Chavez? for which he receives IVIG. He presents with 24 hours of abdominal pain, according to patient yesterday he had a large bowel movement after that he had some significant pain in the abdomen. Denies nausea vomiting, after a bowel movement yesterday he has not had a bowel movement and has not passed gas today. According to the patient the pain is mostly located on the right lower quadrant radiates to the testicles. He had a CT scan in the ER upon presentation that showed inflamed sigmoid diverticulum wi perforation and free intraperitoneal air. I was consulted for this finding. Review of Systems General: Reports: 10 or more systems reviewed and unremarkable except in HPI and below Medications/Allergies Home Medications ?Medication ?Instructions ?Recorded ?Confirmed ?Last Taken ?Type alprazolam 1 mg tablet 1 mg PO TID PRN Anxiety 08/26/20 10/12/24 10/11/24 History famotidine 20 mg tablet 20 mg PO DAILY 08/26/20 10/12/24 10/12/24 05:00 History levothyroxine 100 mcg capsule 100 mcg PO DAILY 08/26/20 10/12/24 10/12/24 05:00 History lisinopril 20 1 tab PO DAILY 08/26/20 10/12/24 10/12/24 05:00 History mg-hydrochlorothiazide 12.5 mg tablet mirabegron 25 mg tablet,extended 25 mg PO DAILY 11/11/20 10/12/24 10/12/24 05:00 History release 24 hr (Myrbetriq) tamsulosin 0.4 mg capsule 0.4 mg PO DAILY 04/06/24 10/12/24 10/12/24 05:00 History duloxetine 30 mg capsule,delayed 30 mg PO DAILY 04/17/24 10/12/24 10/12/24 05:00 History release trimethoprim 100 mg tablet 100 mg PO DAILY 04/17/24 10/12/24 10/12/24 05:00 History tizanidine 4 mg tablet 4 mg PO TID PRN Muscle Spasticity 09/01/24 10/12/24 10/12/24 05:00 Rx #90 tabs immune glob G 40 gram/400 See Rx Instructions IV .COMPLEX 12 09/09/24 10/12/24 10/07/24 Rx mL(10%)-gly-IgA ave 46 mcg/mL months injection soln (Gamunex-C) ergocalciferol (vitamin D2) 1,250 1,250 mcg PO Q7D 10/12/24 10/12/24 10/06/24 History mcg (50,000 unit) capsule (Vitamin D2) finasteride 5 mg tablet 5 mg PO DAILY 10/12/24 10/12/24 10/12/24 05:00 History glucosamine sulf dipot 1 cap PO BID 10/12/24 10/12/24 10/11/24 History chlr,msm,chond 550 mg-C 30 mg-prem 1 mg capsule (Glucosamine Chondroitin) ibuprofen 800 mg tablet 800 mg PO TID PRN Pain 10/12/24 10/12/24 10/11/24 History tramadol 50 mg tablet 100 mg PO Q6H PRN Pain 10/12/24 10/12/24 10/12/24 03:00 History Allergies Allergy/AdvReac Type Severity Reaction Status Date / Time hydrocodone Allergy Mild makes him Verified 09/04/24 14:12 feel crazy morphine Allergy ADR-Headach Verified 09/04/24 14:12 e PFSH Acute PFSH: Medical History (Updated 10/12/24 @ 13:28 by Almas Armstrong MD) Neurogenic bladder Secondary to Guillain-Chavez? History of Guillain-[place] syndrome Ulnar neuropathy of both upper extremities Carpal tunnel syndrome on right Carpal tunnel syndrome, left Polyneuropathy Cervical spondylosis with radiculopathy Lumbar disc disease with radiculopathy Transverse myelitis Chronic inflammatory demyelinating polyneuritis Adrenal nodule Chronic neck and back pain Hypothyroid Hypertension Surgical History (Updated 10/12/24 @ 09:18 by Eron Mai DO) Status post lumbar laminectomy History of implanted electronic device History of decompression of ulnar nerve right Hx laparoscopic cholecystectomy 2016 Hx of knee surgery left History of hand surgery left hand 2000 Previous back surgery L4/5 Family History Unknown Hypertension Social History (Reviewed 10/12/24 @ 09:16 by LAURO Frances Smoking and tobacco/nicotine status: former use of tobacco/nicotine Alcohol intake: current Alcohol intake frequency: holidays/special occasions only Vitals/I&O/Wt Last Vital Signs Temp 97.7 F 10/12/24 08:44 Pulse 95 10/12/24 12:00 Resp 18 10/12/24 12:08 BP 114/74 10/12/24 10:30 Pulse Ox 98 10/12/24 12:08 O2 Del Method Room Air 10/12/24 10:30 10/11/24 10/12/24 10/12/24 22:59 06:59 14:59 Intake Total 50 / 50 Balance 50 / 50 Weight last 48 hrs Weight 295 lb Physical Exam Narrative: General : Patient is well developed , no acute distress, oriented x3 Head : Normal cephalic, a-traumatic. Nose : Mucous membranes are without erythema, tongue appears dry Lungs : Equal chest rise bilaterally, no use of accessory muscles, trachea is midline. CV : Rate and rhythm are normal. Abdomen : The abdomen is soft, there is no peritonitis, there is tenderness in the suprapubic and right lower quadrant region but no peritoneal signs no rebound tenderness Extremities : No edema. Upper extremities are normal bilaterally. Back : non-tender to palpation, no CVA tenderness. Data 10/12/24 09:30 10/12/24 09:30 A&P Assessment and plan (1) Uncontrolled hypertension: (2) Hypothyroid: (3) Neurogenic bladder: (4) Perforated diverticulum of large intestine: Plan After a complete history, physical examination and review of all his available clinical data the following is my assessment. This is a 49-year-old male who presents with a perforated diverticulitis with free air, he has a white count of 17, currently his vital signs are stable and he does not appear toxic. I personally reviewed the CT scan of the abdomen and pelvis, there is sigmoid diverticulitis with a possible area of perforation in the mid sigmoid, there is significant inflammatory changes around this area of the sigmoid, there are speckles of free air in the upper abdomen and a small amount of free air in the right lower quadrant near to the area of the perforation. There is no fluid collections, there is minimal amount of pelvic free fluid. After evaluating the clinical examination and the imaging findings I had extensive discussion with the patient and family members I have explained to them that the 2 options at this point is to proceed to the OR for Dell procedure or to attempt nonoperative management. I have explained to them all risk and benefits of the operation, I have made him aware that with surgery he will require an ostomy, the ostomy will be able to be reversed in the future at some point after the inflammation completely resolves. I have also explained to the patient and that the second option will be to attempt nonoperative management with IV antibiotics, bowel rest and close monitoring of physical examination, vital signs and laboratory workup. I have explained to them that in stable patients initial nonoperative management is recommended even in cases of free intra-abdominal air, but this does have a high risk of failure of about 60%. After discussion they are agreeable to proceed with nonoperative management now and reserve surgery in case of failure. I think this is a reasonable approach at this time as it will allow us time for IV fluid resuscitation and potentially we will be able to avoid the need for a Dell procedure which by itself is a very morbid operation. We will start him on broad-spectrum antibiotics, keep him n.p.o. and will start IV resuscitation. I will continue to closely follow. Patient shows understanding agrees. Per imaging findings this will be classified as a [place] 2B diverticulitis PDMP PDMP Reviewed: Not Reviewed Coding Level of Care Code 61060 Diagnoses Uncontrolled hypertension I10 Hypothyroid E03.9 Neurogenic bladder N31.9 Perforated diverticulum of large intestine K57.20
[2024-10-12 13:51] LABS: C Reactive Protein 105.5 mg/L (0.0-4.9)
[2024-10-12 13:58] LABS: Procalcitonin 0.91 ng/mL (0-0.5)
--- NOTE | 2024-10-12 14:58 | PM.HP ---
Providers/Chief Complaint Admitting Physician: Kelly Nunes MD Primary Care Provider: Man Vicente MD Chief Complaint: right side & abd pain, unable to go to bathroom History of Present Illness Leidy Salinas is a 49 year old male who presented to the emergency room with chief complaint of right-sided abdominal discomfort and difficulty urinating. 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 Also reports recurrent urinary tract infections. He thought he had another urinary tract infection. He had completed a course of Cipro a few days ago. Workup in the emergency room showed leukocytosis with a left shift without conclusive indications of infection on urinalysis. A CT of the abdomen was subsequently done with thought that he may be having kidney stone however it ended up revealing significant amount of intraperitoneal free air and findings suggesting severe sigmoid diverticulitis. He has had known diverticulitis but never had perforation. His symptoms began 1 to 2 days ago in the right lower quadrant and then went down into his groin and testicular region groin and testicular region. Last bowel movement was yesterday. He has had issues with chronic constipation since his Guillain-Chavez? diagnosis. He was unable to urinate at all which was a change. He did have fever up to 101 yesterday. No vomiting but has had nausea. Has felt a little off in the last day or 2 and the pain is progressed to the point that he was not able to get comfortable at all. He called Dr. Vicente this morning who recommended that he present to the emergency room. In terms of patient's history of Guillain-Chavez?, he was diagnosed in 2011. He has associated residual neurogenic bladder. At baseline patient is able to walk and work but he has had progressive difficulty maintaining work and consistent ADLs. He is on IVIG every 3 weeks with last dose received on October 07. Follows with Dr. Glover for neurology. He sees Dr. Greene for urology. Review of Systems General: Reports: Other (ROS as per HPI or as otherwise noted here) Narrative: No history of anesthesia complications No known CAD, CKD, DM, Bleeding disorder Const: Reports: fever(s) and malaise Card: Denies: chest pain Resp: Denies: dyspnea GI: Reports: abdominal pain, nausea, heartburn, constipation (chronic) and bloating; Denies: vomiting, excessive flatus, change in stool character or hematochezia : Reports: difficulty urinating, difficulty starting urination, oliguria and other (self caths) Musc: Reports: neck pain, back pain and muscle weakness Skin/Breast: Denies: rash Neuro: Reports: headache(s) (onset before arrival) and difficulty walking (last 24 hours weaker) Tate/Lymph: Denies: easy bruising or easy bleeding Medications/Allergies Home Medications ?Medication ?Instructions ?Recorded ?Confirmed ?Last Taken ?Type alprazolam 1 mg tablet 1 mg PO TID PRN Anxiety 08/26/20 10/12/24 10/11/24 History famotidine 20 mg tablet 20 mg PO DAILY 08/26/20 10/12/24 10/12/24 05:00 History levothyroxine 100 mcg capsule 100 mcg PO DAILY 08/26/20 10/12/24 10/12/24 05:00 History lisinopril 20 1 tab PO DAILY 08/26/20 10/12/24 10/12/24 05:00 History mg-hydrochlorothiazide 12.5 mg tablet mirabegron 25 mg tablet,extended 25 mg PO DAILY 11/11/20 10/12/24 10/12/24 05:00 History release 24 hr (Myrbetriq) tamsulosin 0.4 mg capsule 0.4 mg PO DAILY 04/06/24 10/12/24 10/12/24 05:00 History duloxetine 30 mg capsule,delayed 30 mg PO DAILY 04/17/24 10/12/24 10/12/24 05:00 History release trimethoprim 100 mg tablet 100 mg PO DAILY 04/17/24 10/12/24 10/12/24 05:00 History tizanidine 4 mg tablet 4 mg PO TID PRN Muscle Spasticity 09/01/24 10/12/24 10/12/24 05:00 Rx #90 tabs immune glob G 40 gram/400 See Rx Instructions IV .COMPLEX 12 09/09/24 10/12/24 10/07/24 Rx mL(10%)-gly-IgA ave 46 mcg/mL months injection soln (Gamunex-C) ergocalciferol (vitamin D2) 1,250 1,250 mcg PO Q7D 10/12/24 10/12/24 10/06/24 History mcg (50,000 unit) capsule (Vitamin D2) finasteride 5 mg tablet 5 mg PO DAILY 10/12/24 10/12/24 10/12/24 05:00 History glucosamine sulf dipot 1 cap PO BID 10/12/24 10/12/24 10/11/24 History chlr,msm,chond 550 mg-C 30 mg-prem 1 mg capsule (Glucosamine Chondroitin) ibuprofen 800 mg tablet 800 mg PO TID PRN Pain 10/12/24 10/12/24 10/11/24 History tramadol 50 mg tablet 100 mg PO Q6H PRN Pain 10/12/24 10/12/24 10/12/24 03:00 History Allergies Allergy/AdvReac Type Severity Reaction Status Date / Time hydrocodone Allergy Mild makes him Verified 09/04/24 14:12 feel crazy morphine Allergy ADR-Headach Verified 09/04/24 14:12 e PFSH Acute PFSH: Medical History (Updated 10/12/24 @ 21:32 by Kelly Nunes MD) Prostatic hypertrophy Lumbar stenosis with neurogenic claudication Neurogenic bladder Secondary to Guillain-Chavez? 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 2011, [id number] and sensory deficits, in 10/2024 getting IVIG q 3 weeks Polyneuropathy Cervical spondylosis with radiculopathy Lumbar disc disease with radiculopathy Transverse myelitis Chronic inflammatory demyelinating polyneuritis Adrenal nodule 09/2023 5mm Chronic neck and back pain Hypothyroid Hypertension Surgical History (Updated 10/12/24 @ 21:02 by Kelly Nunes MD) Status post total left knee replacement using cement (04/2024) Dr Landry Status post carpal tunnel release right 08/03, left 05/04, right 10/30, left 11/30 Status post lumbar laminectomy (05/2023) Dr Baez, L3-4 & L4-5 with partial facetectomies History of implanted electronic device Bladder stimulator implanted in the right lower back History of decompression of ulnar nerve (2022) right 08/03, left 05/04 Hx laparoscopic cholecystectomy 2016 Hx of knee surgery left History of hand surgery left hand 2000 Previous back surgery L4/5 Family History Other Hypertension Social History (Updated 10/12/24 @ 21:11 by Kelly Nunes MD) Smoking and tobacco/nicotine status: former use of tobacco/nicotine Alcohol intake: current Alcohol intake frequency: holidays/special occasions only Substance/Drug Use: never Marital status: Vitals/I&O/Wt Last Vital Signs Temp 97.7 F 10/12/24 08:44 Pulse 95 10/12/24 12:00 Resp 18 10/12/24 12:08 BP 114/74 10/12/24 10:30 Pulse Ox 98 10/12/24 12:08 O2 Del Method Room Air 10/12/24 10:30 10/11/24 10/12/24 10/12/24 22:59 06:59 14:59 Intake Total 50 / 50 Balance 50 / 50 Weight last 48 hrs Weight 133.81 kg Physical Exam Narrative: Patient is awake and alert. Able to provide history. Uncomfortable during the course of examination with frequent movements to alleviate pain. Normocephalic. Extraocular movements are intact. Dry mucous membranes. Neck is large but supple. Lungs are clear to auscultation bilaterally without any rales rhonchi or wheezes noted. Cardiovascular exam reveals a regular rate and rhythm. Abdomen is rotund, predominantly soft. Some mild guarding of right lower quadrant. Tender in the right lower quadrant, right flank and suprapubic areas. No rebound tenderness noted. Bowel sounds are hypoactive. No pitting edema or calf tenderness. Moves all extremities. Data 10/12/24 09:30 10/12/24 09:30 A&P Assessment and plan (1) Perforated diverticulum of large intestine: In a patient who appears to have severe sigmoid diverticulitis. Has had known diverticulosis but never hide perforation previously. Has been on treatment with Cipro in the outpatient setting for urinary symptoms but in talking with him it sounds like onset of current presentation was likely within the last 24 to 48 hours. He has a significant amount of peritoneal air. Inflammatory markers are elevated with high CRP and procalcitonin. - Appreciate general surgery input and assistance with clinical care - Bre empirically - Status post recent treatment with Cipro and is on chronic suppressive therapy with trimethoprim - Strict n.p.o. status - Serial abdominal exams - Attempting nonsurgical intervention first but high likelihood will require surgery or at the very least interventional intervention - Monitor for signs and symptoms suggesting sepsis/worsening. Currently with stable vitals but elevated WBC and creatinine and other abnormalities putting him at high risk of progressive worsening. (2) Sigmoid diverticulitis: - Management as above (3) Acute kidney injury: BUN and creatinine are approximately doubled baseline values from April last year when creatinine was 0.8. eGFR currently at 45.8. Clinically looks dry so suspect this is a combination of prerenal and ATN. He has been taking his lisinopril/hydrochlorothiazide as prescribed. Has normal blood pressures currently but has been having issues with significant hypertension so likely lower than his usual range presently which may also be a contributing factor. While he has had physical difficulty urinating postobstructive process could also be in play but seems less likely based on available information. - IV fluids - Recheck chemistries in the morning - Plan for Sanchez catheter for close monitoring of urine output (4) Neurogenic bladder: Related to history of Guillain-Chavez? - At this point in time will place Sanchez catheter in particular since I am not able to currently administer his usual medications including mirabegron, Flomax and finasteride (5) History of Guillain-Warbranch syndrome: Last dose of IVIG was on 10/07/2024. Has felt like his coordination is a bit off from baseline, weaker with acute illness. - Supportive care (6) Hypertension: Has a history of primary hypertension but has had recent difficult to control hypertension and identified as having an adrenal mass 5mm. Patient's brother had adrenal mass and hypokalemia. Has been seen by Dr. Talbot. Chronically on lisinopril/hydrochlorothiazide. - Given acute kidney injury will hold IV equivalents of usual JOHN inhibitor and diuretic therapy - Monitor blood pressures for need for alternative management Qualifiers: Hypertension type: primary hypertension Qualified Code(s): I10 - Essential (primary) hypertension (7) Hypothyroid: Chronically on levothyroxine. - For now we will hold oral levothyroxine - If has prolonged n.p.o. status can administer half usual dose and IV form Qualifiers: Hypothyroidism type: acquired Qualified Code(s): E03.9 - Hypothyroidism, unspecified (8) Chronic neck and back pain: Chronically has tizanidine and tramadol if needed along with ibuprofen. - While NPO will be on IV morphine predominantly for abdominal pain and has IV lorazepam in place of usual oral benzodiazepines for anxiety. These should provide some help with muscle spasms/musculoskeletal pain as well Plan - Prostatic hypertrophy on tamsulosin and finasteride chronically; holding both due to npo status - Depression and anxiety managed with duloxetine and alprazolam chronically; will give as needed lorazepam for now - Chronically on famotidine; currently administering PPI with symptom escalation Inpatient admission VTE prophylaxis: SCDs currently due to potential need for surgery GI Prophylaxis: PPI Antibiotics: Zosyn and Flagyl initiated 10/12/2024; just completed a course of Cipro in the outpatient setting Pending studies: Morning labs, repeat inflammatory markers Telemetry: Ordered secondary to high potential for acute clinical decline Sanchez: Ordered secondary to known neurogenic bladder and need for close monitoring of urine output in setting of acute kidney injury Line(s): peripheral IVs Disposition plan: Home with outpatient follow up anticipated eventually but will ultimately depend on clinical course. Very well may require surgical intervention versus at the very least interventional procedure either of which may change disposition needs. Will need follow-up with surgery, primary care provider. Will likely need to hold IVIG next dosing as he will likely not be fully recovered from this acute event. Code Status: Full Code [ Supportive care otherwise Findings, concerns and plans were discussed with patient and he was given an opportunity to ask questions PDMP PDMP Reviewed: Last Reviewed 10/12/24 21:24 by Kelly Nunes MD Attestations Medical Necessity Statement*: Anticipated stay greater than two midnights secondary to presentation of severe sigmoid diverticulitis with perforation. Non-operative management with IV antibiotics (Zosyn and Flagyl) is initiated due to the absence of peritoneal signs, supplemented by hydration and bowel rest but surgery remains a possibility, even tonight. Pain management, secondary to chronic issues and current acute abdomen, requires careful balancing. Monitoring for sepsis is crucial given elevated infection risk from chronic IVIG therapy for a history of Guillain-Warbranch Syndrome. Current goals include stabilizing acute conditions, monitoring potential complications, and reassessing the necessity of surgical intervention. Diagnoses Perforated diverticulum of large intestine K57.20 Sigmoid diverticulitis K57.32 Acute kidney injury N17.9 Neurogenic bladder N31.9 History of Guillain-Warbranch syndrome Z86.69 Primary hypertension I10 Hypertension type: primary hypertension Acquired hypothyroidism E03.9 Hypothyroidism type: acquired Chronic neck and back pain M54.2; M54.9; G89.29
[2024-10-12] MEDS: sodium chloride 0.9% 1,000 ML 100 ML IV (15:24)
[2024-10-12] MEDS: LORazepam 2 mg/mL INJ 1 mL 0.5 MG IVP (16:54)
[2024-10-12] MEDS: pantoprazole 40 mg SDV IVP (16:56)
--- NOTE | 2024-10-12 19:26 | P.PN_ITS ---
Subjective 2 Subjective: However the last 5 to 6 hours patient has been complaining of increased abdominal pain and noted to be tachycardic and febrile. Vitals/I&O/Wt Last Vital Signs Temp 97.7 F 10/12/24 08:44 Pulse 108 H 10/12/24 16:00 Resp 20 H 10/12/24 16:55 BP 131/80 10/12/24 16:00 Pulse Ox 97 10/12/24 16:55 O2 Del Method Room Air 10/12/24 16:00 10/12/24 10/12/24 10/12/24 06:59 14:59 22:59 Intake Total 50 / 50 1100 / 1150 Balance 50 / 50 1100 / 1150 Weight last 48 hrs Weight 295 lb Physical Exam 2 GI: OTHER: Abdominal exam shows tenderness mostly in the right lower quadrant suprapubic area, opposite to this morning exam now I do think there are some localized peritonitis at that level Urinary Catheter Management: Sanchez: Cath Placed During This Visit: yes Reason for Continuing Indwelling Catheter: Acute Urinary Retention or Obstruction Urinary Catheter Date of Insertion: 10/12/24 Urinary Catheter Time of Insertion: 17:42 Data 10/12/24 09:30 10/12/24 09:30 A&P Assessment and plan (1) Perforated diverticulum of large intestine: (2) Sepsis: Plan After a reassessment of this patient he has noted to be febrile, tachycardic and with worsening abdominal pain. At this point I do not think it is safe to continue with nonoperative management. I had extensive discussion with the patient and family and I have offered exploratory laparotomy with sigmoid colectomy and end colostomy. I have discussed all recent benefits of the operation including the risks of bleeding, infection, need for additional interventions, injury to the adjacent structures including great vessels, small bowel, ureter, urinary bladder. enterotomy, recurrent diverticulitis, abscess formation requiring reoperation. I have also Splane to the patient and family members that this operation associated with high risk for morbidity and even mortality. Patient shows understanding and agrees to proceed. I have informed the anesthesia team and our team, we will proceed to the OR as soon as the current OR case is finished. PDMP PDMP Reviewed: Not Reviewed Attestations 2 Medical Necessity Statement*: will require 5 to 7 days of hospital stay for post operative management Coding Level of Care Code 60534 Diagnoses Perforated diverticulum of large intestine K57.20 Sepsis A41.9
[2024-10-12] MEDS: acetaminophen 1,000 MG/100 ML PIGGYBACK 400 MG IV (19:38)
--- NOTE | 2024-10-12 20:03 | ANES.PREANE2 ---
Pre-Anesthetic Assessment Height/Weight: Height 6 ft 2 in Weight 295 lb Temp Pulse Resp BP Pulse Ox O2 Del Method 97.7 F 108 H 20 H 131/80 97 Room Air 10/12/24 08:44 10/12/24 16:00 10/12/24 16:55 10/12/24 16:00 10/12/24 16:55 10/12/24 16:00 Preop Diagnosis: Ruptured diverticulosis Was Beta Hermelinda taken within 24 hours: N/A Was Clonidine taken within 24 hours: N/A Social Tobacco and No alcohol Exam alert, oriented x 3 and clear to auscultation bilaterally Sinus tachycardia Airway Submandibular: within normal limits Cervical ROM: within normal limits Mallampati: Class III Dentition: full Comments: Comments: Large nuñez Anesthetic Plan ASA status: 3E Anesthesia: General Other: No prior issues with anesthesia Patient has a history of neurogenic bladder, self caths Patient had a episode of Guillain-Townsend 12 years ago Patient has chronic inflammatory demyelinating polyneuritis, receives IVIG every 21 days Hypertension on lisinopril?HCTZ S/p lumbar laminectomy Labs reviewed, leukocytosis noted, ARTHUR with creatinine 1.6 Patient is febrile with temp of 103. Patient has since received IV Tylenol Discussed risk of anesthesia with the patient and family. Explained that there is a risk he would need to remain intubated and sedated and taken to the ICU. They accept this risk and would like to proceed with anesthesia Plan for GETA Medications/Allergies Home Medications ?Medication ?Instructions ?Recorded ?Confirmed ?Last Taken ?Type alprazolam 1 mg tablet 1 mg PO TID PRN Anxiety 08/26/20 10/12/24 10/11/24 History famotidine 20 mg tablet 20 mg PO DAILY 08/26/20 10/12/24 10/12/24 05:00 History levothyroxine 100 mcg capsule 100 mcg PO DAILY 08/26/20 10/12/24 10/12/24 05:00 History lisinopril 20 1 tab PO DAILY 08/26/20 10/12/24 10/12/24 05:00 History mg-hydrochlorothiazide 12.5 mg tablet mirabegron 25 mg tablet,extended 25 mg PO DAILY 11/11/20 10/12/24 10/12/24 05:00 History release 24 hr (Myrbetriq) tamsulosin 0.4 mg capsule 0.4 mg PO DAILY 04/06/24 10/12/24 10/12/24 05:00 History duloxetine 30 mg capsule,delayed 30 mg PO DAILY 04/17/24 10/12/24 10/12/24 05:00 History release trimethoprim 100 mg tablet 100 mg PO DAILY 04/17/24 10/12/24 10/12/24 05:00 History tizanidine 4 mg tablet 4 mg PO TID PRN Muscle Spasticity 09/01/24 10/12/24 10/12/24 05:00 Rx #90 tabs immune glob G 40 gram/400 See Rx Instructions IV .COMPLEX 12 09/09/24 10/12/24 10/07/24 Rx mL(10%)-gly-IgA ave 46 mcg/mL months injection soln (Gamunex-C) ergocalciferol (vitamin D2) 1,250 1,250 mcg PO Q7D 10/12/24 10/12/24 10/06/24 History mcg (50,000 unit) capsule (Vitamin D2) finasteride 5 mg tablet 5 mg PO DAILY 10/12/24 10/12/24 10/12/24 05:00 History glucosamine sulf dipot 1 cap PO BID 10/12/24 10/12/24 10/11/24 History chlr,msm,chond 550 mg-C 30 mg-prem 1 mg capsule (Glucosamine Chondroitin) ibuprofen 800 mg tablet 800 mg PO TID PRN Pain 10/12/24 10/12/24 10/11/24 History tramadol 50 mg tablet 100 mg PO Q6H PRN Pain 10/12/24 10/12/24 10/12/24 03:00 History Allergies Allergy/AdvReac Type Severity Reaction Status Date / Time hydrocodone Allergy Mild makes him Verified 09/04/24 14:12 feel crazy morphine Allergy ADR-Headach Verified 09/04/24 14:12 e Current Medications Generic Name Dose Route Start Last Admin Trade Name Freq PRN Reason Stop Dose Admin Sodium Chloride 1,000 mls @ 150 mls/hr 10/12/24 15:10 10/12/24 15:40 Sodium Chloride 0.9% IV 10/13/24 04:37 Infused .Q6H40M FERMIN Infusion Metronidazole 500 mg in 100 mls @ 100 mls/hr 10/12/24 18:00 10/12/24 19:39 Flagyl Iv IV 100 mls/hr Q6H FERMIN Administration Protocol Piperacillin Sod/Tazobactam 50 mls @ 12.5 mls/hr 10/12/24 17:00 10/12/24 17:36 Sod 3.375 gm/ Sodium Chloride IV 12.5 mls/hr Q8H FERMIN Administration Protocol Lorazepam 0.5 mg 10/12/24 15:38 10/12/24 16:54 Lorazepam 2 Mg/Ml Inj 1 Ml IVP 0.5 mg Q8H PRN Administration ANXIETY Morphine Sulfate 4 mg 10/12/24 15:10 10/12/24 15:25 Morphine 4 Mg/Ml Sdv 1 Ml IVP 4 mg Q4H PRN Administration SEVERE PAIN Pantoprazole Sodium 40 mg 10/12/24 15:30 10/12/24 16:56 Pantoprazole 40 Mg Sdv IVP 40 mg Q24H FERMIN Administration PFS Anesthesia Medical History (Updated 10/12/24 @ 19:30 by Almas Armstrong MD) Lumbar stenosis with neurogenic claudication Neurogenic bladder Secondary to Guillain-Chavez? History of Guillain-Townsend syndrome (2011) Treated with IVIG in 2011, [id number] and sensory deficits, in 10/2024 getting IVIG q 3 weeks Polyneuropathy Cervical spondylosis with radiculopathy Lumbar disc disease with radiculopathy Transverse myelitis Chronic inflammatory demyelinating polyneuritis Adrenal nodule 09/2023 5mm Chronic neck and back pain Hypothyroid Hypertension Surgical History (Updated 10/12/24 @ 15:50 by Kelly Nnues MD) Status post total left knee replacement using cement (04/2024) Dr Landry Status post carpal tunnel release right 08/03, left 05/04, right 10/30, left 11/30 Status post lumbar laminectomy (05/2023) Dr Baez, L3-4 & L4-5 with partial facetectomies History of implanted electronic device History of decompression of ulnar nerve (2022) right 08/03, left 05/04 Hx laparoscopic cholecystectomy 2016 Hx of knee surgery left History of hand surgery left hand 2000 Previous back surgery L4/5 Family History Unknown Hypertension Social History Smoking and tobacco/nicotine status: former use of tobacco/nicotine Alcohol intake: current Alcohol intake frequency: holidays/special occasions only Data Anesthesia 10/12/24 09:30 10/12/24 09:30 Short CBC 10/12/24 Range/Units 09:30 WBC 17.12 H (3.29-11.43) 10^3/uL Hgb 14.50 (11.27-16.99) g/dL Hct 43.4 (37-53) % MCV 90.0 (82-101) fl Plt Count 175 (157-399) 10^3/cmm Neut % (Auto) 88.6 % Neut # (Auto) 15.16 H (1.8-7.7) 10^3/uL BMP 10/12/24 09:30 Sodium 135 L Potassium 3.8 Chloride 100 Carbon Dioxide 21 L BUN 30 H Creatinine 1.6 H Glucose 115 Calcium 9.2 Liver Function 10/12/24 Range/Units 09:30 Total Bilirubin 0.7 (0.15-1.2) mg/dL AST 28 (0-40) U/L ALT 27 (0-41) U/L Alkaline Phosphatase 111 (40-130) U/L Albumin 4.0 (3.5-5.2) g/dL Urine 10/12/24 Range/Units 09:22 Urine Color Dark yellow A (Yellow) Urine Appearance Cloudy A (CLEAR) Urine pH 5.0 (5-7) Ur Specific [place] 1.035 H (1.005-1.030) Urine Protein 2+ A (Negative) Urine Glucose (UA) Negative (Normal) Urine Ketones 1+ H (Negative) Urine Nitrate Negative (Negative) Urine Bilirubin 1+ H (Negative) Ur Leukocyte Esterase 1+ A (Negative) Urine RBC None (0-2) /hpf Urine WBC 5-10 H (0-5) /hpf Coags 10/12/24 09:30 C-Reactive Protein 105.5 H Cardiac Studies: No Data to Display
[2024-10-13] VITALS (40 sets, daily range): BP systolic 126–183; BP diastolic 83–120; PULSE 80–125; RESP 12–29; TEMP 36.4–37.7; O2SAT 93–99; BMI 39.2
--- NOTE | 2024-10-13 00:17 | SUR.OPER ---
0017 Family updated of surgical status.
--- NOTE | 2024-10-13 01:42 | PM.MISC ---
Miscellaneous Note Purpose of Documentation: General Surgery updated me for postoperative findings: They have found stool contamination during surgery, general surgery is okay broadening the coverage for next 24 to 48 hours, I will go ahead and add vancomycin,plus micafungin along Zosyn and discontinue metronidazole to avoid double anaerobic coverage.
--- NOTE | 2024-10-13 01:43 | P.OP_ITS ---
Operative Report Date of procedure: October 13, 2024 Pre-op diagnosis: Perforated acute diverticulitis Post-op diagnosis: Perforated acute diverticulitis with abscess and feculent peritonitis Post-op findings: There was evidence of acute diverticulitis of the distal sigmoid colon, there was a perforation at that level. At the level of the pelvis there was about 100 cc of feculent liquid material, on the right lower quadrant immediately adjacent to the area of perforation there was an abscess cavity involving the sigmoid colon and the terminal ileum with about 50 cc of purulent material Procedure done: Exploratory laparotomy, sigmoid colectomy and end colostomy Implants: 19 Chinese Rashad drain Specimens removed/disposition: Sigmoid colon Surgeon: Almas Armstrong MD Manager User Experience: [facility] Estimated blood loss: 50 Complications: None apparent Brief History: 49-year-old male who presented with a perforated sigmoid diverticulitis with free air, initially not peritonitic and overall stable vital signs, nonoperative management was attempted but over the course of 8 hours patient became tachycardic, febrile and developed localized peritonitis therefore we decided to proceed to the OR for a sigmoid colectomy after a discussion of all risk and benefits Procedure: Patient was brought into the OR, he was placed in a supine position. General anesthesia was given. The abdomen was prepped and draped in the usual sterile fashion. A timeout was conducted. A 20 cm laparotomy incision was made from the supraumbilical area all the way down to the pelvis, the incision was deepened until the fascia was identified, the fascia was opened with electrocautery taking careful consideration of not injuring the intra-abdominal structures, I then completed opening the incision UCR in my fingers in the peritoneal cavity as a guide. Upon his median access to the abdominal cavity there was no overt evidence of purulence or free fluid. I then proceeded to examine the sigmoid colon, significant diverticulitis was noted and on the distal sigmoid colon there was a large area of induration and possible phlegmonous changes, distal to the area of phlegmonous changes at the level of the pelvis there was a fluid collection liquid feculent material, cultures were taken and aspirated. Once the pelvis was clear of feculent material I then p laced my attention to the area of the sigmoid phlegmonous changes, with careful blunt dissection I was able to unbilled the phlegmon and about 50 cc of purulence drain from a cavity composed provide the sigmoid colon, the terminal ileum and the intra-abdominal fat. At this point I was able to visualize the area of perforation in the distal sigmoid colon. We then decided to proceed with a sigmoid colectomy with end colostomy. The mesentery of the sigmoid colon, especially on the distal portion was shortened and thickened due to the severe inflammation. This made dissection challenging. I started by mobilizing the sigmoid colon attachments from the lateral abdominal wall, I then proceeded to incise the white line of Toldt and carried this incision at worse to the level of the descending colon. Once the sigmoid colon was mobilized I then proceeded to escort the peritoneum in the medial aspect of the distal sigmoid colon, I then was able to create a window behind the distal sigmoid colon, distal to the area of perforation. I then used a contour staple with a blue load to transect the sigmoid colon at that level. The staple line on the Pinto's pouch appeared hemostatic, it was marked with a #3-0 Prolene. I then identified the proximal margin of resection, I created a window in the mesentery and proceeded to transect the sigmoid colon with a 75 mm blue load NEREIDA stapler. I then used the LigaSure to take down the miso the sigmoid colon, I stayed very close to the colon wall due to the severe inflammation that was distorting the anatomy. The specimen was liberated and passed to the scrub table to be sent to pathology. Hemostasis was verified. I then proceeded to mobilize the descending colon with a combination of electrocautery and ligature to allow for good approximation of the proximal colon to the abdominal wall to create the ostomy. Hemostasis was once again verified. The pelvis and paracolic gutters were irrigated with 5 L of saline. A 19 Chinese Rashad drain was placed in the pelvis and delivered through the right lower quadrant. The drain was fixed with #3-0 nylon. I then ran the small bowel from the ligament of Treitz to the cecum and found no evidence of additional pathology, I checked the colon and also found no evidence of additional pathology. I then proceeded to create my ostomy. I had marked an area to the left of the umbilicus in the preoperative setting. The marked area was elevated with an Allis clamp and the scalpel was used to create a circular incision. The fat of the subcutaneous tissue was removed using electrocautery. The anterior rectus sheath was opened and the fibers of the rectus muscle were spread. The peritoneum was then penetrated. I was able to pass 2 full fingers through the ostomy site. I then deliver the distal descending colon through the ostomy. I then verified that miso colon was straight. I then proceeded to close the abdomen using #1 looped PDS for the fascia. I then changed my gloves and proceeded to irrigate the fascia and wash it completely. Hemostasis was verified. I then closed the skin with a blayne and proceeded back in between the blayne with health inch iodoform packing. The wound was covered with a sterile dressing. Before closure of the abdomen a full count was done and was correct, an additional count was done as soon as we finished closing the abdomen and was again correct. I then proceeded to mature the ostomy on in the standard fashion using #3-0 Vicryl. The ostomy appeared healthy with no evidence of ischemia or necrosis. An ostomy appliance was placed. At the end of the procedure a final instrument and soft count was done and it was correct. The patient tolerated well the procedure was extubated and transferred to the ICU in stable condition
--- NOTE | 2024-10-13 02:02 | XRR_ITS ---
PROCEDURE INFORMATION: Exam: XR Chest Exam date and time: 10/13/2024 2:11 AM Age: 49 years old Clinical indication: Device placement; Ng tube; Prior surgery; Surgery date: 6+ months; Surgery type: Gb; Check S/P ng placement; Additional info: Ng tube placement TECHNIQUE: Imaging protocol: Radiologic exam of the chest. Views: 1 view. COMPARISON: No relevant prior studies available. FINDINGS: Tubes, catheters and devices: There is an enteric tube with tip in the region of the proximal stomach. The side port is below the GE junction. Lungs: Unremarkable. No consolidation. Pleural spaces: Unremarkable. No pleural effusion. No pneumothorax. Heart/Mediastinum: Unremarkable. No cardiomegaly. Bones/joints: Unremarkable. XR/XR chest 1V portable [id number] IMPRESSION: Enteric tube as detailed.
[2024-10-13] MEDS: HYDROMORPHONE HCL 0.5 MG/0.5 ML INJ IVP ×5 (02:43→21:39)
[2024-10-13] MEDS: piperacillin-tazobactam 3.375 GM in sodium chloride 0.9% (plus) 50 ML IV ×3 (02:49→17:30)
[2024-10-13] MEDS: vancomycin 2,000 MG/400 ML PIGGYBACK 200 MG IV (02:49)
[2024-10-13] MEDS: dextrose 5%-sod chloride 0.9% 1,000 ML 75 ML IV ×2 (02:50→14:54)
[2024-10-13 04:05] LABS: Basophils % 0.2 %; Hematocrit 39.9 % (37-53); Lymphocytes # 0.7 10^3/uL (0.8-4.8); Mean Corpuscular HGB Conc 33.1 g/dL (30-55); Mean Corpuscular Hemoglobin 29.8 pg (27-33); Mean Corpuscular Volume 90.1 fl (82-101); Monocytes # 0.7 10^3/uL (0.2-0.9); Neutrophils # 15.91 10^3/uL (1.8-7.7); Neutrophils % 91.5 %; Nucleated Red Blood Cells % 0 %; Platelet Count 153 10^3/cmm (157-399); Red Blood Count 4.43 10^6/uL (3.85-5.65); Red Cell Distribution Width 14.6 % (12.1-15.1); White Blood Count 17.38 10^3/uL (3.29-11.43)
[2024-10-13] MEDS: micafungin 150 MG in sodium chloride 0.9% (100 ml) 100 ML 100 MG IV (04:08)
[2024-10-13 04:29] LABS: Lactic Sepsis W/Reflex 1.2 mmol/L (0.5-2.2)
[2024-10-13 04:41] LABS: Alanine Aminotransferase 20 U/L (0-41); Albumin Level 3.5 g/dL (3.5-5.2); Alkaline Phosphatase 86 U/L (40-130); Anion Gap 14.2 (5-19); Aspartate Amino Transferase 22 U/L (0-40); Blood Urea Nitrogen 26 mg/dL (6-20); C Reactive Protein 323.8 mg/L (0.0-4.9); Calcium 8.2 mg/dL (8.5-10.5); Carbon Dioxide 22 mmol/L (22-29); Chloride 105 mmol/L (98-107); Creatinine Clr Calc Pharmacy 99.6701; Globulin 4.7 g/dL (1.3-4.6); Glomerular Filtration Rate 58.2 mL/min (90-130); Glucose 135 mg/dL (65-115); Magnesium 1.7 mg/dL (1.7-2.3); Osmolality Calculated 291 mOsm/kg (285-295); Phosphorus 2.4 mg/dL (2.5-4.5); Potassium 4.2 mmol/L (3.5-5.1); Sodium 137 mmol/L (136-145); Total Bilirubin 0.9 mg/dL (0.15-1.2); Total Protein 8.2 g/dL (6.6-8.7)
[2024-10-13 04:45] LABS: Procalcitonin 1.16 ng/mL (0-0.5)
--- NOTE | 2024-10-13 07:40 | PHA.VACGOAL ---
Vancomycin Goal - Goal Vancomycin Goal:: 15-20 mg/L Vancomycin Indication:: Other (SEPSIS) - Therapy Current therapy:: Pip/Tazo Day of therpy:: Day []of [] . Actual body weight (kg): 305 lb 14.4 oz - Data Labs: WBC 17.38 10^3/uL (3.29-11.43) H 10/13/24 03:49 RBC 4.43 10^6/uL (3.85-5.65) 10/13/24 03:49 Hgb 13.20 g/dL (11.27-16.99) 10/13/24 03:49 Hct 39.9 % (37-53) 10/13/24 03:49 MCV 90.1 fl (82-101) 10/13/24 03:49 MCH 29.8 pg (27-33) 10/13/24 03:49 MCHC 33.1 g/dL (30-55) 10/13/24 03:49 RDW 14.6 % (12.1-15.1) 10/13/24 03:49 Sodium 137 mmol/L (136-145) 10/13/24 03:49 Potassium 4.2 mmol/L (3.5-5.1) 10/13/24 03:49 Chloride 105 mmol/L (98-107) 10/13/24 03:49 Carbon Dioxide 22 mmol/L (22-29) 10/13/24 03:49 Anion Gap 14.2 (5-19) 10/13/24 03:49 BUN 26 mg/dL (6-20) H 10/13/24 03:49 Creatinine 1.3 mg/dL (0.7-1.2) H 10/13/24 03:49 GFR Calculation 58.2 mL/min (90-130) L 10/13/24 03:49 Last dialysis session:: N/A Treatment plan:: new consult Regimen:: LOADING DOSE OF 2000 MG MAINTENANCE DOSE OF 1500 MG Q12H Follow up:: WILL CONTINUE TO MONITOR AND FOLLOW UP DAILY
[2024-10-13] MEDS: hyDRALAzine 20 mg/mL INJ 1 mL 10 MG IVP (08:36)
--- OUTSIDE RECORDS SUMMARY | 2024-10-13 10:45 | XMS_ITS | Clinical Summary ---
Author Organization [facility] Address [address] [place] [address] Phone Care Team Providers Care Sugarcane Planter Name Role Phone Man Vicente MD Primary Care Provider [phone] Allergies No known active allergies Medications DULoxetine (CYMBALTA) 60 mg Capsule, Delayed Release(E.C.) Take 60 mg by mouth 2 times daily. Active silodosin (RAPAFLO) 4 mg Capsule Take 4 mg by mouth daily with breakfast. Active ALPRAZolam (XANAX) 1 mg tablet Take 1 mg by mouth nightly as needed for Anxiety. Active lisinopril-hydr oCHLOROthiazide (ZESTORETIC) 20-12.5 mg tablet Take 1 Tablet by mouth daily. Active tiZANidine (ZANAFLEX) 4 mg Capsule Take 4 mg by mouth daily at bedtime. Active trimethoprim (TRIMPEX) 100 mg tablet Take 100 mg by mouth daily. Active famotidine (PEPCID) 20 mg tablet Take 20 mg by mouth 2 times daily. Active levothyroxine 25 mcg tablet Take 25 mcg by mouth daily in the morning. Active mirabegron (Myrbetriq) 25 mg Extended Release 24 hour tablet Take 25 mg by mouth daily. Active Active Problems No known active problems Social History Tobacco Use Types Packs/Day Years Used Date Smoking Tobacco: Some Days Cigarettes Tobacco Cessation:Ready to Q uit: Not Asked; Counseling Given: Not Answered Alcohol Use Standard Drinks/Week Comments Not Currently 0 (1 standard drink = 0.6 oz pur e alcohol) Sex and Gender Information Value Date Recorded Sex Assigned at Not on file Legal Sex Male 11:51 AM [employer] Gender Identity Not on file Sexual Orientation Not on file Last Filed Vital Signs Vital Sign Reading Time Taken Comments Blood Pressure 137/77 01/28/2023 10:13 AM CDT Pulse 94 01/28/2023 10:13 AM CDT Temperature - - Respiratory Rate - - Oxygen Saturation 99% 01/28/2023 10:13 AM CDT Inhaled Oxygen Concentration - - Weight 139.3 kg (307 lb) 01/28/2023 10:13 AM CDT Height 188 cm (6' 2 ) 01/28/2023 10:13 AM CDT Body Mass Index 39.42 01/28/2023 10:13 AM CDT Plan of Treatment Health Maintenance Due Date Last Done Comments HEPATITIS B VACCINES (1 of 3 - 19+ 3-dose series) 02/09/1992 COLORECTAL SCREENING 2018 Colorectal Cancer Screening 2018 FIT-DNA Q 3 years 2018 FIT/FOBT Q 1 year 2018 Flex Sig/CT Colonography Q 5 years 2018 ZOSTER VACCINE (1 of 2) 2023 INFLUENZA VACCINE (#1) 2024 08/12/2017 DTAP/TDAP/TD VACCINES (3 - Td or Tdap) 05/01/2031, 09/24/2013 Medical Devices Implanted Type Area Wood Router Device Identifier Shelf Expiration Date Model / Serial / Lot Medtronic Neuro Stimulator 3058-10/11/2020 Implanted:03/0 09/2020 (Quantity not on file) Neuro Stimulator [employer] 3058 / [id number] / Description:Jordy Ruiz [employer] Insurance [place] [address] PREFERRED Care Teams Sugarcane Planter Relationship Specialty Start Date End Date Man Vicente MD [address] [place] [id number] PCP - General Family Practice 01/28/23
--- NOTE | 2024-10-13 14:40 | P.PN_ITS ---
Subjective 2 Subjective: This is the first day postop after exploratory laparotomy sigmoid colectomy and end colostomy. Patient is doing okay, pain is improved. NG tube output was minimal and patient request NG tube to be removed. No ostomy output, only some residual blood and clots from the edge of the ostomy. VANGIE drain with serosanguineous output. Patient was able to get out of bed today feeling better after he was in the chair. Vitals/I&O/Wt Last Vital Signs Temp 100 F H 10/13/24 08:00 Pulse 125 H 10/13/24 13:00 Resp 19 H 10/13/24 12:30 BP 151/97 10/13/24 13:00 Pulse Ox 94 10/13/24 13:00 O2 Del Method Room Air 10/13/24 07:00 10/12/24 10/13/24 10/13/24 22:59 06:59 14:59 Intake Total 1350 / 1400 500 / 1900 100 / 100 Output Total 840 / 840 950 / 950 Balance 1350 / 1400 -340 / 1060 -850 / -850 Weight last 48 hrs Weight 305 lb 14.4 oz Weight 305 lb 14.4 oz Weight 295 lb Physical Exam 2 GI: OTHER: Abdominal examination is appropriate with recent surgery, abdomen is soft, appropriately tender. Surgical site is covered with a clean and dry dressing. Ostomy is in place, mucosa appears edematous but viable, there is some residual blood clots and residual oozing from the edges of the ostomy. Urinary Catheter Management: Sanchez: Cath Placed During This Visit: yes Reason for Continuing Indwelling Catheter: Accurate Measurement of Urinary Output in Critically Ill Patients Urinary Catheter Date of Insertion: 10/12/24 Urinary Catheter Time of Insertion: 17:42 Data 10/13/24 03:49 10/13/24 03:49 Micro: Microbiology 10/12/24 22:28 Gram Stain - Final Peritoneal Fluid 10/12/24 20:37 Blood Culture - Preliminary Blood SPECIMEN COLLECTED 10/12/24 20:32 Blood Culture - Preliminary Blood SPECIMEN COLLECTED A&P Assessment and plan (1) Perforated diverticulum of large intestine: Plan Patient showing good progression in the first 12 hours postoperative. His heart rate is mildly elevated. Tmax was 100 after surgery. No significant NG output. Overall feeling better. NG tube was discontinued but patient should remain n.p.o., can have small amount of ice chips just to keep the mouth moist. Will hold anticoagulation over the next 24 hours as he is high risk for bleeding due to the extent of dissection of inflamed tissue. Will continue to monitor labs and vital signs. I appreciate medical management by hospitalist team PDMP PDMP Reviewed: Not Reviewed Attestations 2 Medical Necessity Statement*: Patient will require 3 to 5 days of hospital stay for postoperative management after Dell procedure for perforated acute diverticulitis with abscess and feculent peritonitis Coding Level of Care Code Acute Code for [facility] Fwd Diagnoses Perforated diverticulum of large intestine K57.20
[2024-10-13] MEDS: pantoprazole 40 mg SDV IVP (14:55)
[2024-10-13] MEDS: vancomycin 1,500 MG/300 ML PIGGYBACK 200 MG IV (14:55)
--- NOTE | 2024-10-13 16:51 | PM.PN ---
Subjective Subjective: Patient was seen this morning, he is alert oriented x 3, following all commands, he did have a low-grade fever this morning, does report persistent abdominal pain, he tells me that the Dilaudid is helping controlling his pain Vitals/I&O/Wt Last Vital Signs Temp 100 F H 10/13/24 08:00 Pulse 89 10/13/24 14:30 Resp 12 10/13/24 14:30 BP 161/104 10/13/24 14:30 Pulse Ox 96 10/13/24 14:30 O2 Del Method Room Air 10/13/24 07:00 10/13/24 10/13/24 10/13/24 06:59 14:59 22:59 Intake Total 500 / 1900 1005 / 1005 Output Total 840 / 840 950 / 950 Balance -340 / 1060 55 / 55 Weight last 48 hrs Weight 138.754 kg Weight 138.754 kg Weight 133.81 kg Physical Exam Const: COMMON NORMALS: no acute distress and patient oriented x3 HENMT: OTHER: Nasogastric tube in place Neck/C-Spine: COMMON NORMALS: no JVD Resp: COMMON NORMALS: normal respiratory effort, No retractions, No use of accessory muscles and clear to auscultation bilaterally AUSCULTATION: clear to auscultation bilaterally Cardio: COMMON NORMALS: no JVD, regular rate, regular rhythm, S1 normal heart sound present and S2 normal heart sound present RATE: regular rate RHYTHM: regular rhythm HEART SOUNDS: S1 normal heart sound present and S2 normal heart sound present GI: OTHER: Abdomen is soft, distended, scattered bowel sounds, no guarding, rebound or chronicity, colostomy in place, blood with clots in the bag Extremity: COMMON NORMALS: no pedal edema Neuro: COMMON NORMALS: patient oriented x3 Urinary Catheter Management: Sanchez: Cath Placed During This Visit: yes Reason for Continuing Indwelling Catheter: Accurate Measurement of Urinary Output in Critically Ill Patients Urinary Catheter Date of Insertion: 10/12/24 Urinary Catheter Time of Insertion: 17:42 Data 10/13/24 03:49 10/13/24 03:49 Micro: Microbiology 10/12/24 22:28 Gram Stain - Final Peritoneal Fluid 10/12/24 20:37 Blood Culture - Preliminary Blood SPECIMEN COLLECTED 10/12/24 20:32 Blood Culture - Preliminary Blood SPECIMEN COLLECTED A&P Assessment and plan (1) Perforated diverticulum of large intestine: -Patient is status post exploratory laparotomy, sigmoid colectomy, and end colostomy -Continue vancomycin -Continue Zosyn -Continue micafungin -Nasogastric tube in place -npo -general surgery consulted -IV dilauded for pain control - Serial abdominal exams (2) Sigmoid diverticulitis: - Management as above (3) Acute kidney injury: - IV fluids - Sanchez catheter for close monitoring of urine output (4) Neurogenic bladder: 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 Has felt like his coordination is a bit off from baseline, weaker with acute illness. - Supportive care (6) Hypertension: -hold blood pressure medications Qualifiers: Hypertension type: primary hypertension Qualified Code(s): I10 - Essential (primary) hypertension (7) Hypothyroid: -IV levothyroxine Qualifiers: Hypothyroidism type: acquired Qualified Code(s): E03.9 - Hypothyroidism, unspecified (8) Chronic neck and back pain: monitor Plan VTE prophylaxis: SCDs currently due to potential need for surgery GI Prophylaxis: PPI Telemetry: Ordered secondary to high potential for acute clinical decline Sanchez: Ordered secondary to known neurogenic bladder and need for close monitoring of urine output in setting of acute kidney injury Line(s): peripheral IVs Code Status: Full Code Supportive care otherwise Findings, concerns and plans were discussed with patient and he was given an opportunity to ask questions PDMP PDMP Reviewed: Not Reviewed Attestations Medical Necessity Statement*: Patient requires hospitalization for perforated diverticulitis status post surgical intervention, ARTHUR Diagnoses Perforated diverticulum of large intestine K57.20 Sigmoid diverticulitis K57.32 Acute kidney injury N17.9 Neurogenic bladder N31.9 History of Guillain-[place] syndrome Z86.69 Primary hypertension I10 Hypertension type: primary hypertension Acquired hypothyroidism E03.9 Hypothyroidism type: acquired Chronic neck and back pain M54.2; M54.9; G89.29
[2024-10-13 17:46] LABS: Glucose Point of Care 117 mg/dL (70-110)
--- NOTE | 2024-10-13 18:48 | PC.NURSE ---
Report called to Medical Surgical floor RN Denae. Patient to be moved to room 263 via bed.
[2024-10-13] MEDS: LORazepam 2 mg/mL INJ 1 mL 0.5 MG IVP (20:51)
[2024-10-13] MEDS: ondansetron 2 mg/ML SDV 2 mL 4 MG IVP (20:51)
[2024-10-13] MEDS: micafungin 100 MG in sodium chloride 0.9% (plus) 100 ML IV (22:52)
[2024-10-14] VITALS (9 sets, daily range): BP systolic 132–167; BP diastolic 72–110; PULSE 70–82; RESP 16–20; TEMP 36.4–38; O2SAT 93–99; BMI 39.1
[2024-10-14] MEDS: piperacillin-tazobactam 3.375 GM in sodium chloride 0.9% (plus) 50 ML IV ×3 (00:45→18:46)
[2024-10-14] MEDS: LORazepam 2 mg/mL INJ 1 mL 0.5 MG IVP (00:45)
[2024-10-14] MEDS: dextrose 5%-sod chloride 0.9% 1,000 ML 75 ML IV ×2 (03:07→16:35)
[2024-10-14] MEDS: vancomycin 1,500 MG/300 ML PIGGYBACK 200 MG IV (03:07)
[2024-10-14] MEDS: HYDROMORPHONE HCL 0.5 MG/0.5 ML INJ IVP ×5 (03:08→23:09)
[2024-10-14 06:05] LABS: Basophils % 0.1 %; Hematocrit 43.5 % (37-53); Lymphocytes # 0.8 10^3/uL (0.8-4.8); Lymphocytes % 4.8 %; Mean Corpuscular HGB Conc 33.1 g/dL (30-55); Mean Corpuscular Hemoglobin 30.3 pg (27-33); Mean Corpuscular Volume 91.4 fl (82-101); Mean Platelet Volume 9.1 fL (7.4-10.4); Monocytes # 0.9 10^3/uL (0.2-0.9); Neutrophils # 15.36 10^3/uL (1.8-7.7); Neutrophils % 89.7 %; Nucleated Red Blood Cells % 0 %; Platelet Count 164 10^3/cmm (157-399); Red Blood Count 4.76 10^6/uL (3.85-5.65); Red Cell Distribution Width 14.6 % (12.1-15.1); White Blood Count 17.14 10^3/uL (3.29-11.43)
[2024-10-14 06:28] LABS: Blood Urea Nitrogen 17 mg/dL (6-20); Calcium 8.6 mg/dL (8.5-10.5); Carbon Dioxide 22 mmol/L (22-29); Chloride 104 mmol/L (98-107); Creatinine Clr Calc Pharmacy 143.7438; Glucose 140 mg/dL (65-115); Osmolality Calculated 292 mOsm/kg (285-295); Phosphorus 2.2 mg/dL (2.5-4.5); Sodium 139 mmol/L (136-145)
--- NOTE | 2024-10-14 08:06 | P.PN_ITS ---
Subjective 2 Subjective: Patient is now postoperative day 1 status post exploratory laparotomy sigmoid colectomy and end colostomy for perforated diverticulitis with abscess and feculent peritonitis. Patient has been doing okay overnight, abdominal pain has been stable. Vital signs have remained stable, has been afebrile. VANGIE output has been serosanguineous. Vitals/I&O/Wt Last Vital Signs Temp 97.7 F 10/14/24 04:00 Pulse 75 10/14/24 05:07 Resp 18 10/14/24 04:00 BP 135/72 10/14/24 04:00 Pulse Ox 93 10/14/24 04:00 O2 Del Method Room Air 10/14/24 04:00 10/13/24 10/14/24 10/14/24 22:59 06:59 14:59 Intake Total 350 / 1355 1366.25 / 2721.25 Output Total 885 / 1835 595 / 2430 Balance -535 / -480 771.25 / 291.25 Weight last 48 hrs Weight 305 lb Weight 305 lb 14.4 oz Weight 305 lb 14.4 oz Weight 295 lb Physical Exam 2 GI: OTHER: Abdominal exam is benign abdomen is soft, appropriately tender to palpation. Midline incision was change, after removal of packing there was some oozing from the lower midline that was controlled with packing and pressure. The ostomy is in place weeping but no output yet. The mucosa is congested but viable. VANGIE drain with serosanguineous output. Urinary Catheter Management: Sanchez: Cath Placed During This Visit: yes Reason for Continuing Indwelling Catheter: Other Urinary Catheter Date of Insertion: 10/12/24 Urinary Catheter Time of Insertion: 17:42 Data 10/14/24 06:00 10/14/24 06:00 Micro: Microbiology 10/12/24 20:37 Blood Culture - Preliminary Blood NEGATIVE TO DATE 10/12/24 20:32 Blood Culture - Preliminary Blood NEGATIVE TO DATE 10/12/24 22:28 Gram Stain - Final Peritoneal Fluid A&P Assessment and plan (1) Perforated diverticulum of large intestine: Plan Patient shows good progression and postoperative day 1, no significant changes in the last 24 hours. His white count has remained stable CRP the same, kidney function has been improving. The plan for today is ambulation as tolerated. Will likely hold anticoagulation as an additional 24 hours as there was oozing after dressing change today. We will do ice chips today by tomorrow he shows some signs of GI function we will probably advance to clears. PDMP PDMP Reviewed: Not Reviewed Attestations 2 Medical Necessity Statement*: Patient will require 3 to 5 days of hospital stay for postoperative care Coding Level of Care Code Acute Code for [facility] Fwd Diagnoses Perforated diverticulum of large intestine K57.20
[2024-10-14] MEDS: levothyroxine 100 mcg SDV 50 MCG IVP (08:26)
[2024-10-14] MEDS: hyDRALAzine 20 mg/mL INJ 1 mL 10 MG IVP ×2 (08:26→23:58)
[2024-10-14] MEDS: ondansetron 2 mg/ML SDV 2 mL 4 MG IVP (08:40)
--- NOTE | 2024-10-14 14:16 | P.PN_ITS ---
Subjective 2 Subjective: Patient was seen this morning, he was seen ambulating the hallways, seen back in his room, family room at bedside, denies any fevers, no chills, does report abdominal distention, abdominal pain, did not get any sleep last night he tells the Ativan did not help, Vitals/I&O/Wt Last Vital Signs Temp 97.6 F 10/14/24 12:13 Pulse 82 10/14/24 14:00 Resp 17 10/14/24 12:13 BP 160/103 10/14/24 12:13 Pulse Ox 98 10/14/24 12:13 O2 Del Method Room Air 10/14/24 12:13 10/13/24 10/14/24 10/14/24 22:59 06:59 14:59 Intake Total 350 / 1355 1366.25 / 2721.25 50 / 50 Output Total 885 / 1835 595 / 2430 1650 / 1650 Balance -535 / -480 771.25 / 291.25 -1600 / -1600 Weight last 48 hrs Weight 138.346 kg Weight 138.754 kg Weight 138.754 kg Physical Exam 2 Const: COMMON NORMALS: no acute distress and patient oriented x3 Resp: COMMON NORMALS: normal respiratory effort, No retractions, No use of accessory muscles and clear to auscultation bilaterally AUSCULTATION: clear to auscultation bilaterally Cardio: COMMON NORMALS: regular rate, regular rhythm, S1 normal heart sound present and S2 normal heart sound present RATE: regular rate RHYTHM: r egular rhythm HEART SOUNDS: S1 normal heart sound present and S2 normal heart sound present GI: OTHER: Abdomen soft, distended, no guarding, no rebound, rigidity, does have diffuse tenderness, colostomy bag in place, with blood in bag, ostomy site, loop looks pink, fleshy, with blood Extremity: COMMON NORMALS: no pedal edema Neuro: COMMON NORMALS: patient oriented x3, CN's II-XII intact bilaterally and moves all extremities Psych: COMMON NORMALS: mental status grossly normal Urinary Catheter Management: Sanchez: Cath Placed During This Visit: yes Reason for Continuing Indwelling Catheter: Other Urinary Catheter Date of Insertion: 10/12/24 Urinary Catheter Time of Insertion: 17:42 Data 10/14/24 06:00 10/14/24 06:00 Micro: Microbiology 10/12/24 22:28 Gram Stain - Final Peritoneal Fluid Anaerobic Culture - Preliminary 10/12/24 20:37 Blood Culture - Preliminary Blood NEGATIVE TO DATE 10/12/24 20:32 Blood Culture - Preliminary Blood NEGATIVE TO DATE A&P Assessment and plan (1) Perforated diverticulum of large intestine: -Acute diverticulitis with abscess and feculent peritonitis -Patient is status post exploratory laparotomy, sigmoid colectomy, and end colostomy -Continue vancomycin -Continue Zosyn -Continue micafungin -Nasogastric tube removed -npo -IV fluids -general surgery consulted -IV dilauded for pain control - Serial abdominal exams (2) Sigmoid diverticulitis: - Management as above (3) Acute kidney injury: - IV fluids - Sanchez catheter for close monitoring of urine output (4) Neurogenic bladder: 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 Has felt like his coordination is a bit off from baseline, weaker with acute illness. - Supportive care (6) Hypertension: -hold blood pressure medications Qualifiers: Hypertension type: primary hypertension Qualified Code(s): I10 - Essential (primary) hypertension (7) Hypothyroid: -IV levothyroxine Qualifiers: Hypothyroidism type: acquired Qualified Code(s): E03.9 - Hypothyroidism, unspecified (8) Chronic neck and back pain: monitor (9) Peritonitis: (10) Diverticulitis of intestine with perforation and abscess: Plan VTE prophylaxis: SCDs, anticoagulation currently on hold GI Prophylaxis: PPI Telemetry: Ordered secondary to high potential for acute clinical decline Sanchez: Ordered secondary to known neurogenic bladder and need for close monitoring of urine output in setting of acute kidney injury Line(s): peripheral IVs Code Status: Full Code Plan for today include use Dilaudid 0.5 mg IV push every 4 hours as needed, continue IV fluids, continue IV antibiotics, add Ambien for sleep tonight, spoke to general surgery PDMP PDMP Reviewed: Not Reviewed Attestations 2 Medical Necessity Statement*: Patient requires hospitalization for perforated diverticulitis Diagnoses Perforated diverticulum of large intestine K57.20 Sigmoid diverticulitis K57.32 Acute kidney injury N17.9 Neurogenic bladder N31.9 History of Guillain-[place] syndrome Z86.69 Primary hypertension I10 Hypertension type: primary hypertension Acquired hypothyroidism E03.9 Hypothyroidism type: acquired Chronic neck and back pain M54.2; M54.9; G89.29 Peritonitis K65.9 Diverticulitis of intestine with perforation and abscess K57.80
[2024-10-14 16:04] LABS: Vancomycin Trough 4.9 ug/mL (10-15)
[2024-10-14] MEDS: vancomycin 2,000 MG/400 ML PIGGYBACK 200 MG IV (16:34)
[2024-10-14] MEDS: pantoprazole 40 mg SDV IVP (16:34)
[2024-10-14] MEDS: zolpidem 5 mg Tablet PO (22:03)
[2024-10-14] MEDS: micafungin 100 MG in sodium chloride 0.9% (plus) 100 ML IV (23:11)
[2024-10-15] VITALS (10 sets, daily range): BP systolic 133–180; BP diastolic 80–118; PULSE 72–77; RESP 15–20; TEMP 36.4–37.3; O2SAT 94–100; BMI 38.7
[2024-10-15] MEDS: vancomycin 2,000 MG/400 ML PIGGYBACK 200 MG IV ×3 (00:37→20:57)
[2024-10-15] MEDS: piperacillin-tazobactam 3.375 GM in sodium chloride 0.9% (plus) 50 ML IV ×3 (00:41→17:10)
[2024-10-15] MEDS: HYDROMORPHONE HCL 0.5 MG/0.5 ML INJ IVP ×3 (04:40→13:21)
[2024-10-15] MEDS: hyDRALAzine 20 mg/mL INJ 1 mL 10 MG IVP ×2 (04:40→15:41)
--- NOTE | 2024-10-15 06:45 | P.PN_ITS ---
Subjective 2 Subjective: Postoperative day 2 status post sigmoid colectomy with end colostomy for perforated diverticulitis with abscess formation and feculent peritonitis. Patient is doing okay no acute events overnight.Has her son rumbling in the stomach since he is so some gas in the bag. Vitals/I&O/Wt Last Vital Signs Temp 97.6 F 10/15/24 05:00 Pulse 74 10/15/24 06:00 Resp 18 10/15/24 05:00 BP 173/104 10/15/24 05:00 Pulse Ox 99 10/15/24 05:00 O2 Del Method Room Air 10/15/24 05:00 10/14/24 10/14/24 10/15/24 14:59 22:59 06:59 Intake Total 50 / 50 1476.458 / 1526.458 650 / 2176.458 Output Total 1650 / 1650 300 / 1950 1065 / 3015 Balance -1600 / -1600 1176.458 / -423.542 -415 / -838.542 Weight last 48 hrs Weight 301 lb 12.8 oz Weight 305 lb Physical Exam 2 GI: OTHER: Abdomen is soft appropriately tender to palpation, surgical incision covered with a dressing. Ostomy bag with gas no stool yet mucosa appears edematous but viable. VANGIE drain with serosanguineous output. Urinary Catheter Management: Sanchez: Cath Placed During This Visit: yes Reason for Continuing Indwelling Catheter: Accurate Measurement of Urinary Output in Critically Ill Patients Urinary Catheter Date of Insertion: 10/12/24 Urinary Catheter Time of Insertion: 17:42 Data 10/14/24 06:00 10/14/24 06:00 Micro: Microbiology 10/12/24 22:28 Gram Stain - Final Peritoneal Fluid Anaerobic Culture - Preliminary Body Fluid Culture - Preliminary A&P Assessment and plan (1) Perforated diverticulum of large intestine: Plan Patient showing good progression over the last 24 hours. There is gas in the bag now indicating possible return of bowel function. Has been ambulating we will start him on clear liquid diet today. I will do a dressing change later during the day and if no evidence of bleeding we can start him on DVT prophylaxis. Wound care instructions for midline wound. Will pack with quarter inch packing between blayne cover with Telfa and Medipore. -CLD today -IV ABX -Pain control -Medical management apreciated PDMP PDMP Reviewed: Not Reviewed Attestations 2 Medical Necessity Statement*: Patient will require 48 to 72 hours of hospital stay for postoperative management Coding Level of Care Code Acute Code for Chg Fwd Diagnoses Perforated diverticulum of large intestine K57.20
[2024-10-15] MEDS: levothyroxine 100 mcg SDV 50 MCG IVP (08:13)
[2024-10-15] MEDS: amlodipine 10 mg Tablet PO (09:22)
--- NOTE | 2024-10-15 09:25 | XRR_ITS ---
PROCEDURE INFORMATION: Exam: XR Chest Exam date and time: 10/15/2024 10:37 AM Age: 49 years old Clinical indication: Cough TECHNIQUE: Imaging protocol: Radiologic exam of the chest. Views: 1 view. COMPARISON: CR (CHEST, ) 10/13/2024 2:11 AM FINDINGS: Lungs: Unremarkable. No consolidation. Pleural spaces: Unremarkable. No pleural effusion. No pneumothorax. Heart/Mediastinum: Unremarkable. No cardiomegaly. Bones/joints: Unremarkable. XR/XR chest 1V portable [id number] IMPRESSION: No acute findings.
--- NOTE | 2024-10-15 15:29 | PM.PN ---
Subjective Subjective: Patient was seen this morning, does report a cough, no fevers, no chills, he is on clear liquids this morning, he did have gas in his colostomy bag, he was able to ambulate this morning, Vitals/I&O/Wt Last Vital Signs Temp 98.5 F 10/15/24 11:40 Pulse 77 10/15/24 11:40 Resp 15 10/15/24 11:40 BP 163/92 10/15/24 11:40 Pulse Ox 100 10/15/24 11:40 O2 Del Method Room Air 10/15/24 11:40 10/15/24 10/15/24 10/15/24 06:59 14:59 22:59 Intake Total 650 / 2176.458 1370 / 1370 Output Total 1065 / 3015 300 / 300 Balance -415 / -225.229 6491 / 1070 Weight last 48 hrs Weight 136.894 kg Weight 138.346 kg Physical Exam Const: COMMON NORMALS: no acute distress and patient oriented x3 Resp: COMMON NORMALS: normal respiratory effort, No retractions, No use of accessory muscles and clear to auscultation bilaterally AUSCULTATION: clear to auscultation bilaterally Cardio: COMMON NORMALS: regular rate, regular rhythm, S1 normal heart sound present and S2 normal heart sound present RATE: regular rate RHYTHM: regular rhythm HEART SOUNDS: S1 normal heart sound present and S2 normal heart sound present GI: OTHER: Abdomen soft, distended, no guarding, no rebound, no rigidity, colostomy bag in place, has blood in bag Extremity: COMMON NORMALS: no pedal edema Neuro: COMMON NORMALS: patient oriented x3 Psych: COMMON NORMALS: mental status grossly normal Urinary Catheter Management: Sanchez: Cath Placed During This Visit: yes Reason for Continuing Indwelling Catheter: Accurate Measurement of Urinary Output in Critically Ill Patients Urinary Catheter Date of Insertion: 10/12/24 Urinary Catheter Time of Insertion: 17:42 Data 10/14/24 06:00 10/14/24 06:00 Micro: Microbiology 10/12/24 22:28 Gram Stain - Final Peritoneal Fluid Anaerobic Culture - Preliminary Body Fluid Culture - Preliminary A&P Assessment and plan (1) Perforated diverticulum of large intestine: -Acute diverticulitis with abscess and feculent peritonitis -Patient is status post exploratory laparotomy, sigmoid colectomy, and end colostomy -Continue vancomycin -Continue Zosyn -Continue micafungin -Nasogastric tube removed -Transition to clear liquids -IV fluids -general surgery consulted -IV dilauded for pain control - Serial abdominal exams (2) Sigmoid diverticulitis: - Management as above (3) Acute kidney injury: - IV fluids - Sanchez catheter for close monitoring of urine output (4) Neurogenic bladder: 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 Has felt like his coordination is a bit off from baseline, weaker with acute illness. - Supportive care (6) Hypertension: -hold blood pressure medications Qualifiers: Hypertension type: primary hypertension Qualified Code(s): I10 - Essential (primary) hypertension (7) Hypothyroid: -IV levothyroxine Qualifiers: Hypothyroidism type: acquired Qualified Code(s): E03.9 - Hypothyroidism, unspecified (8) Chronic neck and back pain: monitor (9) Peritonitis: (10) Diverticulitis of intestine with perforation and abscess: Plan VTE prophylaxis: SCDs, Lovenox GI Prophylaxis: PPI Telemetry: Ordered secondary to high potential for acute clinical decline Sanchez: Ordered secondary to known neurogenic bladder and need for close monitoring of urine output in setting of acute kidney injury Line(s): peripheral IVs Code Status: Full Code Plan up out of bed, PT OT, incentive spirometer valve use, flutter valve use, did complain of cough x-ray chest, transition to clear liquids start Lovenox for DVT prophylaxis PDMP PDMP Reviewed: Not Reviewed Attestations Medical Necessity Statement*: Patient requires hospitalization for perforated diverticulitis with peritonitis Diagnoses Perforated diverticulum of large intestine K57.20 Sigmoid diverticulitis K57.32 Acute kidney injury N17.9 Neurogenic bladder N31.9 History of Guillain-[place] syndrome Z86.69 Primary hypertension I10 Hypertension type: primary hypertension Acquired hypothyroidism E03.9 Hypothyroidism type: acquired Chronic neck and back pain M54.2; M54.9; G89.29 Peritonitis K65.9 Diverticulitis of intestine with perforation and abscess K57.80
[2024-10-15] MEDS: pantoprazole 40 mg SDV IVP (15:48)
[2024-10-15 17:27] LABS: Basophils % 0.1 %; Eosinophils # 0.3 10^3/uL (0.0-0.8); Eosinophils % 1.9 %; Hematocrit 38.8 % (37-53); Lymphocytes # 1.4 10^3/uL (0.8-4.8); Lymphocytes % 10.1 %; Mean Corpuscular HGB Conc 33.2 g/dL (30-55); Mean Corpuscular Hemoglobin 29.9 pg (27-33); Mean Corpuscular Volume 89.8 fl (82-101); Mean Platelet Volume 9.2 fL (7.4-10.4); Monocytes # 0.8 10^3/uL (0.2-0.9); Monocytes % 6.2 %; Neutrophils # 10.98 10^3/uL (1.8-7.7); Neutrophils % 81.3 %; Nucleated Red Blood Cells % 0 %; Platelet Count 252 10^3/cmm (157-399); Red Blood Count 4.32 10^6/uL (3.85-5.65); Red Cell Distribution Width 14.2 % (12.1-15.1); White Blood Count 13.53 10^3/uL (3.29-11.43)
[2024-10-15] MEDS: cloNIDine 0.1 mg Tablet PO (17:27)
[2024-10-15] MEDS: HYDROMORPHONE HCL 0.5 MG/0.5 ML INJ 0.75 MG IVP ×2 (17:28→21:31)
[2024-10-15 17:46] LABS: Anion Gap 15.5 (5-19); Blood Urea Nitrogen 18 mg/dL (6-20); C Reactive Protein 106.8 mg/L (0.0-4.9); Calcium 8.8 mg/dL (8.5-10.5); Carbon Dioxide 20 mmol/L (22-29); Chloride 107 mmol/L (98-107); Creatinine Clr Calc Pharmacy 214.4191; Glucose 118 mg/dL (65-115); Osmolality Calculated 291 mOsm/kg (285-295); Potassium 3.5 mmol/L (3.5-5.1); Sodium 139 mmol/L (136-145); Vancomycin Trough 10.5 ug/mL (10-15)
[2024-10-15] MEDS: zolpidem 5 mg Tablet PO (20:36)
[2024-10-15] MEDS: enoxaparin 40 mg/0.4 mL Syringe SUBCUT (20:58)
[2024-10-16] VITALS (9 sets, daily range): BP systolic 132–166; BP diastolic 68–96; PULSE 57–82; RESP 16–18; TEMP 36.3–36.8; O2SAT 93–100; BMI 39.4
[2024-10-16] MEDS: HYDROMORPHONE HCL 0.5 MG/0.5 ML INJ 0.75 MG IVP ×2 (01:57→08:19)
[2024-10-16] MEDS: vancomycin 2,000 MG/400 ML PIGGYBACK 200 MG IV ×3 (01:58→18:11)
[2024-10-16 05:07] LABS: Basophils # 0.1 10^3/uL (0.0-0.1); Basophils % 0.5 %; Eosinophils # 0.6 10^3/uL (0.0-0.8); Eosinophils % 5.1 %; Hematocrit 34.9 % (37-53); Lymphocytes # 1.2 10^3/uL (0.8-4.8); Lymphocytes % 11.1 %; Mean Corpuscular HGB Conc 32.7 g/dL (30-55); Mean Corpuscular Hemoglobin 30.6 pg (27-33); Mean Corpuscular Volume 93.6 fl (82-101); Mean Platelet Volume 9.1 fL (7.4-10.4); Monocytes # 0.9 10^3/uL (0.2-0.9); Monocytes % 7.9 %; Neutrophils # 8.17 10^3/uL (1.8-7.7); Neutrophils % 74.9 %; Nucleated Red Blood Cells % 0 %; Platelet Count 223 10^3/cmm (157-399); Red Blood Count 3.73 10^6/uL (3.85-5.65); Red Cell Distribution Width 14.3 % (12.1-15.1); White Blood Count 10.89 10^3/uL (3.29-11.43)
[2024-10-16 05:30] LABS: Anion Gap 14.6 (5-19); Blood Urea Nitrogen 17 mg/dL (6-20); C Reactive Protein 56.9 mg/L (0.0-4.9); Calcium 8.6 mg/dL (8.5-10.5); Carbon Dioxide 21 mmol/L (22-29); Chloride 107 mmol/L (98-107); Creatinine Clr Calc Pharmacy 183.7878; Glomerular Filtration Rate 118.9 mL/min (90-130); Glucose 116 mg/dL (65-115); Osmolality Calculated 291 mOsm/kg (285-295); Phosphorus 2.6 mg/dL (2.5-4.5); Potassium 3.6 mmol/L (3.5-5.1); Sodium 139 mmol/L (136-145)
[2024-10-16] MEDS: piperacillin-tazobactam 3.375 GM in sodium chloride 0.9% (plus) 50 ML IV ×3 (05:31→20:26)
[2024-10-16] MEDS: micafungin 100 MG in sodium chloride 0.9% (plus) 100 ML IV (05:33)
[2024-10-16] MEDS: levothyroxine 100 mcg SDV 50 MCG IVP (08:20)
[2024-10-16] MEDS: cloNIDine 0.1 mg Tablet PO ×2 (08:20→18:11)
[2024-10-16] MEDS: amlodipine 10 mg Tablet PO (08:20)
--- NOTE | 2024-10-16 09:35 | P.PN_ITS ---
Subjective 2 Subjective: Postoperative day 3 status post laparotomy sigmoid colectomy and end colostomy for perforated acute diverticulitis with abscess and feculent peritonitis. Patient is doing well overnight. Ostomy has been productive of gas, no stool yet. No nausea or vomit. Feels mildly distended but no abdominal pain. Vitals/I&O/Wt Last Vital Signs Temp 97.6 F 10/16/24 08:04 Pulse 65 10/16/24 08:04 Resp 16 10/16/24 08:04 BP 147/96 10/16/24 08:20 Pulse Ox 100 10/16/24 08:04 O2 Del Method Room Air 10/16/24 08:04 10/15/24 10/16/24 10/16/24 22:59 06:59 14:59 Intake Total 450 / 1820 800 / 2620 100 / 100 Output Total 730 / 1030 600 / 1630 50 / 50 Balance -280 / 790 200 / 990 50 / 50 Weight last 48 hrs Weight 307 lb 2 oz Weight 301 lb 12.8 oz Physical Exam 2 GI: OTHER: Surgical incisions healing well, no evidence of abscess formation or bleeding. Packing was replaced. Abdominal examination is benign abdomen is soft and appropriately tender, there is mild distention there is good bowel sounds. Ostomy is productive of gas, ostomy appliance was replaced the ostomy was washed the central mucosa appears pink and healthy the edges appear dusky, there is some improvement in the edema Urinary Catheter Management: Sanchez: Cath Placed During This Visit: yes Reason for Continuing Indwelling Catheter: Accurate Measurement of Urinary Output in Critically Ill Patients Urinary Catheter Date of Insertion: 10/12/24 Urinary Catheter Time of Insertion: 17:42 Data 10/16/24 04:46 10/16/24 04:46 Micro: Microbiology 10/12/24 22:28 Gram Stain - Final Peritoneal Fluid Anaerobic Culture - Preliminary Body Fluid Culture - Preliminary A&P Assessment and plan (1) Perforated diverticulum of large intestine: Plan Patient showing good progression over the last 24 hours. His white count has trended down to normal, his creatinine has normalized, his CRP has also continued to trend down. No fever, normal bowel sounds. Ostomy appears to be working, is productive of gas no stool yet. Will plan to advance to a full liquid diet today and may decide to start a mild laxative to facilitate bowel movements. The ostomy appears to be healing well the center of the mucosa is completely pink and healthy the edges of the level of the mucocutaneous junction appeared dusky which is expected due to the terminal circulation at the level and the fact that there is a thick subcutaneous pannus. The plan will be to continue monitoring over the next 24 hours if things have continued to improve by tomorrow we might decide on discharge home. We will continue to work with case management to set up ostomy and wound care at home. PDMP PDMP Reviewed: Not Reviewed Attestations 2 Medical Necessity Statement*: Possible discharge in the next 24 to 48 hours Coding Level of Care Code Acute Code for Chg Fwd Diagnoses Perforated diverticulum of large intestine K57.20
[2024-10-16] MEDS: HYDROMORPHONE HCL 0.5 MG/0.5 ML INJ 1 MG IVP ×3 (14:02→22:54)
--- NOTE | 2024-10-16 14:57 | P.PN_ITS ---
Subjective 2 Subjective: Patient was seen this morning, denies any fevers, chills, no cough no nausea, no vomiting, tolerating clear liquid diet well Vitals/I&O/Wt Last Vital Signs Temp 98.1 F 10/16/24 11:34 Pulse 73 10/16/24 11:34 Resp 18 10/16/24 11:34 BP 132/86 10/16/24 11:34 Pulse Ox 100 10/16/24 11:34 O2 Del Method Room Air 10/16/24 11:34 10/15/24 10/16/24 10/16/24 22:59 06:59 14:59 Intake Total 450 / 1820 800 / 2620 670 / 670 Output Total 730 / 1030 600 / 1630 600 / 600 Balance -280 / 790 200 / 990 70 / 70 Weight last 48 hrs Weight 139.31 kg Weight 136.894 kg Physical Exam 2 Const: COMMON NORMALS: no acute distress and patient oriented x3 Resp: COMMON NORMALS: normal respiratory effort, No retractions, No use of accessory muscles and clear to auscultation bilaterally AUSCULTATION: clear to auscultation bilaterally Cardio: COMMON NORMALS: regular rate, regular rhythm, S1 normal heart sound present and S2 normal heart sound present RATE: regular rate RHYTHM: r egular rhythm HEART SOUNDS: S1 normal heart sound present and S2 normal heart sound present GI: OTHER: Abdomen soft, distended, good bowel sounds, colostomy site looks pink and fleshy, Extremity: COMMON NORMALS: no pedal edema Neuro: COMMON NORMALS: patient oriented x3 Psych: COMMON NORMALS: mental status grossly normal Urinary Catheter Management: Sanchez: Cath Placed During This Visit: yes Reason for Continuing Indwelling Catheter: Accurate Measurement of Urinary Output in Critically Ill Patients Urinary Catheter Date of Insertion: 10/12/24 Urinary Catheter Time of Insertion: 17:42 Data 10/16/24 04:46 10/16/24 04:46 Micro: Microbiology 10/12/24 22:28 Gram Stain - Final Peritoneal Fluid Anaerobic Culture - Preliminary Body Fluid Culture - Preliminary A&P Assessment and plan (1) Perforated diverticulum of large intestine: -Acute diverticulitis with abscess and feculent peritonitis -Patient is status post exploratory laparotomy, sigmoid colectomy, and end colostomy -Continue vancomycin -Continue Zosyn -Continue micafungin -Nasogastric tube removed -Transition to clear liquids -IV fluids -general surgery consulted -IV dilauded for pain control - Serial abdominal exams (2) Sigmoid diverticulitis: - Management as above (3) Acute kidney injury: - IV fluids - Sanchez catheter for close monitoring of urine output (4) Neurogenic bladder: 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 Has felt like his coordination is a bit off from baseline, weaker with acute illness. - Supportive care (6) Hypertension: -hold blood pressure medications Qualifiers: Hypertension type: primary hypertension Qualified Code(s): I10 - Essential (primary) hypertension (7) Hypothyroid: -IV levothyroxine Qualifiers: Hypothyroidism type: acquired Qualified Code(s): E03.9 - Hypothyroidism, unspecified (8) Chronic neck and back pain: monitor (9) Peritonitis: (10) Diverticulitis of intestine with perforation and abscess: Plan VTE prophylaxis: SCDs, Lovenox GI Prophylaxis: PPI Telemetry: Ordered secondary to high potential for acute clinical decline Sanchez: Ordered secondary to known neurogenic bladder and need for close monitoring of urine output in setting of acute kidney injury Line(s): peripheral IVs Code Status: Full Code Plan up out of bed, PT OT, incentive spirometer valve use, flutter valve use, transition to clear liquids start Lovenox for DVT prophylaxis PDMP PDMP Reviewed: Not Reviewed Attestations 2 Medical Necessity Statement*: Patient requires hospitalization for perforated diverticulitis, peritonitis Diagnoses Perforated diverticulum of large intestine K57.20 Sigmoid diverticulitis K57.32 Acute kidney injury N17.9 Neurogenic bladder N31.9 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
[2024-10-16] MEDS: pantoprazole 40 mg SDV IVP (18:11)
[2024-10-16] MEDS: zolpidem 5 mg Tablet PO (20:22)
[2024-10-16] MEDS: enoxaparin 40 mg/0.4 mL Syringe SUBCUT (20:22)
[2024-10-17] VITALS (10 sets, daily range): BP systolic 132–182; BP diastolic 64–115; PULSE 65–86; RESP 16–18; TEMP 36.4–36.8; O2SAT 92–99; BMI 39.4
[2024-10-17] MEDS: vancomycin 2,000 MG/400 ML PIGGYBACK 200 MG IV ×2 (02:54→10:29)
[2024-10-17] MEDS: HYDROMORPHONE HCL 0.5 MG/0.5 ML INJ 1 MG IVP ×3 (04:01→13:04)
[2024-10-17 04:31] LABS: Basophils # 0.1 10^3/uL (0.0-0.1); Basophils % 0.6 %; Eosinophils # 0.9 10^3/uL (0.0-0.8); Eosinophils % 8.2 %; Hematocrit 40.1 % (37-53); Lymphocytes # 1.5 10^3/uL (0.8-4.8); Mean Corpuscular HGB Conc 31.2 g/dL (30-55); Mean Corpuscular Hemoglobin 29.9 pg (27-33); Mean Corpuscular Volume 95.9 fl (82-101); Mean Platelet Volume 9.4 fL (7.4-10.4); Monocytes % 9.2 %; Neutrophils # 7.19 10^3/uL (1.8-7.7); Neutrophils % 67.3 %; Nucleated Red Blood Cells % 0 %; Platelet Count 211 10^3/cmm (157-399); Red Blood Count 4.18 10^6/uL (3.85-5.65); White Blood Count 10.69 10^3/uL (3.29-11.43)
[2024-10-17] MEDS: micafungin 100 MG in sodium chloride 0.9% (plus) 100 ML IV (05:30)
[2024-10-17] MEDS: piperacillin-tazobactam 3.375 GM in sodium chloride 0.9% (plus) 50 ML IV ×3 (05:30→20:28)
[2024-10-17 06:54] LABS: Alanine Aminotransferase 42 U/L (0-41); Albumin Level 3.4 g/dL (3.5-5.2); Alkaline Phosphatase 86 U/L (40-130); Anion Gap 13.5 (5-19); Aspartate Amino Transferase 36 U/L (0-40); Blood Urea Nitrogen 16 mg/dL (6-20); Calcium 8.5 mg/dL (8.5-10.5); Carbon Dioxide 23 mmol/L (22-29); Chloride 106 mmol/L (98-107); Creatinine Clr Calc Pharmacy 216.4332; Glucose 110 mg/dL (65-115); Magnesium 1.9 mg/dL (1.7-2.3); Osmolality Calculated 290 mOsm/kg (285-295); Phosphorus 3.4 mg/dL (2.5-4.5); Potassium 3.5 mmol/L (3.5-5.1); Sodium 139 mmol/L (136-145); Total Bilirubin 0.6 mg/dL (0.15-1.2); Total Protein 6.4 g/dL (6.6-8.7)
--- NOTE | 2024-10-17 09:07 | P.PN_ITS ---
Subjective 2 Subjective: Very good progression over the last 24 hours. Ostomy is now productive of gas and stool. No significant abdominal pain, has been ambulating, no nausea or vomit . Vitals/I&O/Wt Last Vital Signs Temp 97.5 F L 10/17/24 08:00 Pulse 71 10/17/24 08:00 Resp 16 10/17/24 08:00 BP 167/100 10/17/24 08:00 Pulse Ox 99 10/17/24 08:00 O2 Del Method Room Air 10/17/24 08:00 10/16/24 10/17/24 10/17/24 22:59 06:59 14:59 Intake Total 870 / 1540 550 / 2090 Output Total 2700 / 3300 Balance 870 / 940 -2150 / -1210 Weight last 48 hrs Weight 307 lb 3 oz Weight 307 lb 2 oz Physical Exam 2 GI: OTHER: Benign abdominal exam abdomen is soft nontender there is good bowel sounds, ostomy is productive of gas and stool, midline incision is healing well there is some serous drainage in the lower aspect of the wound but other than that is healing fine. Urinary Catheter Management: Sanchez: Cath Placed During This Visit: yes Reason for Continuing Indwelling Catheter: Acute Urinary Retention or Obstruction Urinary Catheter Date of Insertion: 10/12/24 Urinary Catheter Time of Insertion: 17:42 Data 10/17/24 04:00 10/17/24 06:21 Micro: Microbiology 10/12/24 22:28 Gram Stain - Final Peritoneal Fluid Anaerobic Culture - Preliminary Body Fluid Culture - Final A&P Assessment and plan (1) Perforated diverticulum of large intestine: Plan Patient showing very good progression. We will start GI soft diet today. We will do once a day MiraLAX to help with bowel movements. The goal is to have soft stool to allow to progress through the ostomy. Plan is to discharge iTomorrow. We will stop IV antifungal and vancomycin can continue Zosyn while he is inpatient and he can probably go home on 7 days of Augmentin. PDMP PDMP Reviewed: Not Reviewed Attestations 2 Medical Necessity Statement*: For discharge tomorrow Coding Level of Care Code Acute Code for Chg Fwd Diagnoses Perforated diverticulum of large intestine K57.20
[2024-10-17] MEDS: cloNIDine 0.1 mg Tablet PO ×2 (09:09→16:16)
[2024-10-17] MEDS: amlodipine 10 mg Tablet PO (09:09)
[2024-10-17] MEDS: levothyroxine 100 mcg SDV 50 MCG IVP (09:09)
[2024-10-17] MEDS: hyDRALAzine 20 mg/mL INJ 1 mL 10 MG IVP (10:28)
[2024-10-17] MEDS: lisinopril 20 mg Tablet PO (13:34)
[2024-10-17] MEDS: hydroCHLOROthiazide 25 mg Tablet 12.5 MG PO (13:34)
[2024-10-17] MEDS: pantoprazole 40 mg SDV IVP (13:36)
--- NOTE | 2024-10-17 14:41 | PC.NURSE ---
Pt confides in this RN with substance abuse history of Oxycodone. He states in the past he would take multiple doses of 60mg at a time. He states that he quit cold turkey over a summer and worries about his pain being hard to manage vs. becoming addicted again. Notified Dr. Jimenez. Medication adjusted accordingly.
--- NOTE | 2024-10-17 15:20 | P.PN_ITS ---
Subjective 2 Subjective: Patient was seen this morning, he is alert awake, following all commands, no lightheadedness, no dizziness, he had stool from his colostomy bag Vitals/I&O/Wt Last Vital Signs Temp 97.8 F 10/17/24 12:00 Pulse 86 10/17/24 12:00 Resp 17 10/17/24 12:00 BP 164/100 10/17/24 12:00 Pulse Ox 99 10/17/24 12:00 O2 Del Method Room Air 10/17/24 12:00 10/17/24 10/17/24 10/17/24 06:59 14:59 22:59 Intake Total 550 / 2090 50 / 50 Output Total 2700 / 3300 Balance -2150 / -1210 50 / 50 Weight last 48 hrs Weight 139.338 kg Weight 139.31 kg Physical Exam 2 Const: COMMON NORMALS: no acute distress and patient oriented x3 Resp: COMMON NORMALS: normal respiratory effort, No retractions, No use of accessory muscles and clear to auscultation bilaterally AUSCULTATION: clear to auscultation bilaterally Cardio: COMMON NORMALS: regular rate, regular rhythm, S1 normal heart sound present and S2 normal heart sound present RATE: regular rate RHYTHM: r egular rhythm HEART SOUNDS: S1 normal heart sound present and S2 normal heart sound present GI: OTHER: Abdomen is soft, distended, good bowel sounds, no guarding, no rebound, rigidity, VANGIE drain in place, colostomy bag in place with stool in the bag, colostomy site, tissue is pink Extremity: COMMON NORMALS: no pedal edema Neuro: COMMON NORMALS: patient oriented x3, CN's II-XII intact bilaterally and moves all extremities Psych: COMMON NORMALS: mental status grossly normal Urinary Catheter Management: Sanchez: Cath Placed During This Visit: yes Reason for Continuing Indwelling Catheter: Acute Urinary Retention or Obstruction Urinary Catheter Date of Insertion: 10/12/24 Urinary Catheter Time of Insertion: 17:42 Data 10/17/24 04:00 10/17/24 06:21 Micro: Microbiology 10/12/24 22:28 Gram Stain - Final Peritoneal Fluid Anaerobic Culture - Preliminary Body Fluid Culture - Final A&P Assessment and plan (1) Perforated diverticulum of large intestine: -Acute diverticulitis with abscess and feculent peritonitis -Patient is status post exploratory laparotomy, sigmoid colectomy, and end colostomy -Stop vancomycin -Continue Zosyn -Stop micafungin -Nasogastric tube removed -Transition to clear liquids -IV fluids, discontinued -general surgery consulted -IV dilauded for pain control, de-escalate oxycodone - Serial abdominal exams (2) Sigmoid diverticulitis: - Management as above (3) Acute kidney injury: - IV fluids, stopped - Sanchez catheter for close monitoring of urine output (4) Neurogenic bladder: 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 Has felt like his coordination is a bit off from baseline, weaker with acute illness. - Supportive care (6) Hypertension: -Resume blood pressure medications Qualifiers: Hypertension type: primary hypertension Qualified Code(s): I10 - Essential (primary) hypertension (7) Hypothyroid: -IV levothyroxine Qualifiers: Hypothyroidism type: acquired Qualified Code(s): E03.9 - Hypothyroidism, unspecified (8) Chronic neck and back pain: monitor (9) Peritonitis: (10) Diverticulitis of intestine with perforation and abscess: Plan VTE prophylaxis: SCDs, Lovenox GI Prophylaxis: PPI Telemetry: Ordered secondary to high potential for acute clinical decline Sanchez: Ordered secondary to known neurogenic bladder and need for close monitoring of urine output in setting of acute kidney injury Line(s): peripheral IVs, VANGIE drain in place Code Status: Full Code Plan up out of bed, PT OT, incentive spirometer valve use, flutter valve use, transition to clear liquids start Lovenox for DVT prophylaxis, resume blood pressure medication, de-escalate antibiotics PDMP PDMP Reviewed: Not Reviewed Attestations 2 Medical Necessity Statement*: Patient requires hospitalization for perforated diverticulitis with peritonitis requiring IV antibiotics, inpatient monitoring Diagnoses Perforated diverticulum of large intestine K57.20 Sigmoid diverticulitis K57.32 Acute kidney injury N17.9 Neurogenic bladder N31.9 History of Guillain-[place] syndrome Z86.69 Primary hypertension I10 Hypertension type: primary hypertension Acquired hypothyroidism E03.9 Hypothyroidism type: acquired Chronic neck and back pain M54.2; M54.9; G89.29 Peritonitis K65.9 Diverticulitis of intestine with perforation and abscess K57.80
[2024-10-17] MEDS: oxyCODONE 5 mg IR Tab/Cap 10 MG PO ×2 (16:16→20:27)
[2024-10-17] MEDS: lidocaine 2% viscous 15 ML, aluminum-mag hydrox-simethicon 30 ML, sucralfate oral liq 1 GM PO (17:34)
[2024-10-17] MEDS: polyethylene glycol 3350 Pkt 17 gm PO (17:36)
--- NOTE | 2024-10-17 17:52 | PC.NURSE ---
Pt blood pressure has been elevated this shift. RN speaks with Dr. Jimenez. He makes adjustments to medications. BP noted to decrease at end of shift. Pt also c/o nausea and acid reflux this shift. GI cocktail given.
[2024-10-17] MEDS: enoxaparin 40 mg/0.4 mL Syringe SUBCUT (20:28)
[2024-10-17] MEDS: zolpidem 5 mg Tablet PO (20:28)
[2024-10-18] VITALS (7 sets, daily range): BP systolic 138–170; BP diastolic 92–97; PULSE 63–85; RESP 17–18; TEMP 36.7–36.9; O2SAT 95–99
[2024-10-18] MEDS: oxyCODONE 5 mg IR Tab/Cap 10 MG PO ×2 (00:33→04:46)
[2024-10-18 04:23] LABS: Basophils # 0.1 10^3/uL (0.0-0.1); Basophils % 0.5 %; Eosinophils # 0.9 10^3/uL (0.0-0.8); Eosinophils % 8.7 %; Hematocrit 34.8 % (37-53); Lymphocytes # 1.4 10^3/uL (0.8-4.8); Lymphocytes % 13.9 %; Mean Corpuscular Hemoglobin 30.3 pg (27-33); Mean Corpuscular Volume 91.6 fl (82-101); Mean Platelet Volume 9.8 fL (7.4-10.4); Monocytes # 0.9 10^3/uL (0.2-0.9); Monocytes % 9.3 %; Neutrophils # 6.74 10^3/uL (1.8-7.7); Neutrophils % 66.5 %; Nucleated Red Blood Cells % 0 %; Platelet Count 286 10^3/cmm (157-399); Red Cell Distribution Width 13.9 % (12.1-15.1); White Blood Count 10.13 10^3/uL (3.29-11.43)
[2024-10-18] MEDS: piperacillin-tazobactam 3.375 GM in sodium chloride 0.9% (plus) 50 ML IV (04:26)
[2024-10-18 04:41] LABS: Alanine Aminotransferase 54 U/L (0-41); Albumin Level 3.1 g/dL (3.5-5.2); Alkaline Phosphatase 88 U/L (40-130); Aspartate Amino Transferase 44 U/L (0-40); Blood Urea Nitrogen 15 mg/dL (6-20); Calcium 8.6 mg/dL (8.5-10.5); Carbon Dioxide 24 mmol/L (22-29); Chloride 101 mmol/L (98-107); Creatinine Clr Calc Pharmacy 216.4332; Globulin 3.4 g/dL (1.3-4.6); Glucose 105 mg/dL (65-115); Magnesium 1.9 mg/dL (1.7-2.3); Osmolality Calculated 281 mOsm/kg (285-295); Phosphorus 2.7 mg/dL (2.5-4.5); Sodium 135 mmol/L (136-145); Total Bilirubin 0.6 mg/dL (0.15-1.2); Total Protein 6.5 g/dL (6.6-8.7)
--- NOTE | 2024-10-18 06:03 | PC.NURSE ---
this nurse notified Dr Arita due to patient having a Potassium value of 3; 40 meq of potassium PO ordered
[2024-10-18] MEDS: potassium chloride ER 20 mEq Tablet 40 MEQ PO (06:13)
[2024-10-18] MEDS: levothyroxine 100 mcg SDV 50 MCG IVP (09:15)
[2024-10-18] MEDS: lisinopril 20 mg Tablet PO (09:16)
[2024-10-18] MEDS: polyethylene glycol 3350 Pkt 17 gm PO (09:16)
--- NOTE | 2024-10-18 09:28 | P.PN_ITS ---
Subjective 2 Subjective: Patient is doing well after exploratory laparotomy, sigmoid colectomy with end colostomy for perforated sigmoid diverticulitis with abscess formation and feculent peritonitis. Patient has had good ostomy output overnight is producing gas and stool. No significant abdominal pain, improvement of the bloating, no fever or chills, stable vital signs. Vitals/I&O/Wt Last Vital Signs Temp 98.4 F 10/18/24 08:00 Pulse 76 10/18/24 08:00 Resp 17 10/18/24 08:00 BP 158/93 10/18/24 08:00 Pulse Ox 95 10/18/24 08:00 O2 Del Method Room Air 10/18/24 08:00 10/17/24 10/18/24 10/18/24 22:59 07:59 14:59 Intake Total 170 / 220 50 / 270 Output Total 1015 / 1015 655 / 1670 Balance -845 / -795 -605 / -1400 Weight last 48 hrs Weight 310 lb 14.4 oz Weight 307 lb 3 oz Physical Exam 2 GI: OTHER: Abdominal exam is benign, there are good bowel sounds. Ostomy is working productive of gas and stool. Central mucosa appears pink and healthy the edges appeared dusky. Midline incision was evaluated wound is healing, there is moderate amount of serous discharge from the bottom of the wound which is mostly yellowish with no odor Urinary Catheter Management: Sanchez: Cath Placed During This Visit: yes Reason for Continuing Indwelling Catheter: Chronic Indwelling Urinary Catheter on Admission Urinary Catheter Date of Insertion: 10/12/24 Urinary Catheter Time of Insertion: 17:42 Data 10/18/24 03:12 10/18/24 03:12 Micro: Microbiology 10/12/24 20:37 Blood Culture - Final Blood NO GROWTH AFTER 5 DAYS 10/12/24 20:32 Blood Culture - Final Blood NO GROWTH AFTER 5 DAYS 10/12/24 22:28 Gram Stain - Final Peritoneal Fluid Anaerobic Culture - Preliminary Body Fluid Culture - Final A&P Assessment and plan (1) Perforated diverticulum of large intestine: (2) Peritonitis: (3) Sigmoid diverticulitis: Plan Patient is showing very good postoperative progression at this point. He is cleared to be discharged from the general surgery standpoint. He will follow-up with us in 2 weeks. I have discussed with the patient all warning signs and reasons to return to the hospital. He will receive ostomy and wound care education by nursing team. Will continue on 10 days of p.o. antibiotic, pain control medication has been ordered. Midline wound instructions: Replace midline dressing daily, pack the infraumbilical portion of the wound with quarter inch or half-inch plain packing once a day and cover with an island dressing. PDMP PDMP Reviewed: Last Reviewed 10/18/24 10:25 EDT by Almas Armstrong MD Attestations 2 Medical Necessity Statement*: Patient is cleared to discharge from the Surgical standpoint today Coding Level of Care Code Acute Code for Chg Fwd Diagnoses Perforated diverticulum of large intestine K57.20 Peritonitis K65.9 Sigmoid diverticulitis K57.32
--- NOTE | 2024-10-18 10:56 | P.DS_ITS ---
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 Glover, who presents [facility] due to abdominal pain Patient was admitted to [facility] for perforated diverticulitis with abscess and feculent peritonitis, status post exploratory laparotomy with sigmoid colectomy and end colostomy. Patient was monitored as inpatient received broad-spectrum antibiotic therapy, antifungal therapy, IV fluids, IV pain control, NG tube in place. Overall patient's clinical condition improved, NG tube was removed, diet was advanced, antibiotic therapy was de-escalated, he remains afebrile, so far blood cultures have had no growth, surgical cultures so far no growth. Patient will be discharged on antibiotic therapy with a close follow-up with general surgery as outpatient. Patient was advised if develops any fevers, or worsening abdominal pain to come back to the hospital. Patient's hospitalization was complicated by ARTHUR improved with IV fluids, Sanchez catheter removed on discharge, patient is to self cath at home Patient's hospitalization was complicated by hypertension, discharged on clonidine and Norvasc in addition to his home blood pressure medications. Follow-up with primary care provider as outpatient for blood pressure check Physical Exam Const: COMMON NORMALS: no acute distress and patient oriented x3 Resp: COMMON NORMALS: normal respiratory effort, No retractions, No use of accessory muscles and clear to auscultation bilaterally AUSCULTATION: clear to auscultation bilaterally Cardio: COMMON NORMALS: regular rate, regular rhythm, S1 normal heart sound present and S2 normal heart sound present RATE: regular rate RHYTHM: regular rhythm HEART SOUNDS: S1 normal heart sound present and S2 normal heart sound present GI: OTHER: Abdomen soft, distended, colostomy in place, with stool in bag, no guarding, no rebound, no rigidity, good bowel sounds Extremity: COMMON NORMALS: no pedal edema Neuro: COMMON NORMALS: patient oriented x3 Psych: COMMON NORMALS: mental status grossly normal Urinary Catheter Management: Sanchez: Cath Placed During This Visit: yes Reason for Continuing Indwelling Catheter: Chronic Indwelling Urinary Catheter on Admission Urinary Catheter Date of Insertion: 10/12/24 Urinary Catheter Time of Insertion: 17:42 Discharge Data Studies Completed and Pending Completed Studies During Hospitalization Category Date Time Status CT kidney stone [id number] Stat Cat Scan 10/12/24 10:03 Completed XR chest 1V portable [id number] Routine Exams 10/15/24 09:25 Completed XR chest 1V portable [id number] Stat Exams 10/13/24 02:02 Completed Pending at discharge Category Date Time Status Anaerobic Culture Routine Lab 10/12/24 22:28 Results Body Fluid Culture & GS Routine Lab 10/12/24 22:28 Results Complete Blood Count w/Auto AM LABS Lab 10/19/24 04:00 Ordered Comprehensive Metabolic Panel AM LABS Lab 10/19/24 04:00 Ordered Magnesium AM LABS Lab 10/19/24 04:00 Ordered Phosphorus AM LABS Lab 10/19/24 04:00 Ordered Pathology: Surgical [PTH] Routine Pth 10/13/24 00:47 Received Radiology Impressions Abdomen/Pelvis CT 10/12/24 10:03 IMPRESSION: 1. Significant amount of intraperitoneal free air. Free air is secondary to an acute inflammatory process involving the sigmoid colon with perforation. There is a large amount of free air also in the RIGHT lower quadrant with numerous foci scattered throughout the peritoneal cavity. There is marked asymmetric wall thickening of the sigmoid with a perforation identified. Most consistent with severe sigmoid diverticulitis. Underlying neoplasm should also be excluded. 2. Small amount of free fluid in the pelvis. Hounsfield units are slightly increased suggests that this may be GI content. 3. Normal appendix. 4. Prior cholecystectomy. Notified Eron Mai DO at 10/12/2024 11:43 AM. Chest X-Ray 10/15/24 09:25 IMPRESSION: No acute findings. Laboratory Results WBC 10.13 10^3/uL (3.29-11.43) 10/18/24 03:12 RBC 3.80 10^6/uL (3.85-5.65) L 10/18/24 03:12 Hgb 11.50 g/dL (11.27-16.99) 10/18/24 03:12 Hct 34.8 % (37-53) L 10/18/24 03:12 MCV 91.6 fl (82-101) 10/18/24 03:12 MCH 30.3 pg (27-33) 10/18/24 03:12 MCHC 33.0 g/dL (30-55) D 10/18/24 03:12 RDW 13.9 % (12.1-15.1) 10/18/24 03:12 Plt Count 286 10^3/cmm (157-399) D 10/18/24 03:12 MPV 9.8 fL (7.4-10.4) 10/18/24 03:12 Neut % (Auto) 66.5 % 10/18/24 03:12 Lymph % (Auto) 13.9 % 10/18/24 03:12 Isabella % (Auto) 9.3 % 10/18/24 03:12 Eos % (Auto) 8.7 % 10/18/24 03:12 Baso % (Auto) 0.5 % 10/18/24 03:12 Neut # (Auto) 6.74 10^3/uL (1.8-7.7) 10/18/24 03:12 Lymph # (Auto) 1.4 10^3/uL (0.8-4.8) 10/18/24 03:12 Isabella # (Auto) 0.9 10^3/uL (0.2-0.9) 10/18/24 03:12 Eos # (Auto) 0.9 10^3/uL (0.0-0.8) H 10/18/24 03:12 Baso # (Auto) 0.1 10^3/uL (0.0-0.1) 10/18/24 03:12 Nucleated RBC % (auto) 0 % 10/18/24 03:12 Nucleated RBCs # 0.0 /100WBC 10/18/24 03:12 Sodium 135 mmol/L (136-145) L 10/18/24 03:12 Potassium 3.0 mmol/L (3.5-5.1) L 10/18/24 03:12 Chloride 101 mmol/L (98-107) 10/18/24 03:12 Carbon Dioxide 24 mmol/L (22-29) 10/18/24 03:12 Anion Gap 13.0 (5-19) 10/18/24 03:12 BUN 15 mg/dL (6-20) 10/18/24 03:12 Creatinine 0.6 mg/dL (0.7-1.2) L 10/18/24 03:12 GFR Calculation 142.0 mL/min (90-130) H 10/18/24 03:12 Glucose 105 mg/dL (65-115) 10/18/24 03:12 POC Glucose 117 mg/dL (70-110) H 10/13/24 17:41 Calculated Osmolality 281 mOsm/kg (285-295) L 10/18/24 03:12 Lactic Acid 1.2 mmol/L (0.5-2.2) 10/13/24 03:49 Calcium 8.6 mg/dL (8.5-10.5) 10/18/24 03:12 Phosphorus 2.7 mg/dL (2.5-4.5) 10/18/24 03:12 Magnesium 1.9 mg/dL (1.7-2.3) 10/18/24 03:12 Total Bilirubin 0.6 mg/dL (0.15-1.2) 10/18/24 03:12 AST 44 U/L (0-40) H 10/18/24 03:12 ALT 54 U/L (0-41) H 10/18/24 03:12 Alkaline Phosphatase 88 U/L (40-130) 10/18/24 03:12 C-Reactive Protein 56.9 mg/L (0.0-4.9) H 10/16/24 04:46 Total Protein 6.5 g/dL (6.6-8.7) L 10/18/24 03:12 Albumin 3.1 g/dL (3.5-5.2) L 10/18/24 03:12 Globulin 3.4 g/dL (1.3-4.6) 10/18/24 03:12 Lipase 42 U/L (13-60) 10/12/24 09:30 Procalcitonin 1.16 ng/mL (0-0.5) H 10/13/24 03:49 Urine Color Dark yellow (Yellow) A 10/12/24 09:22 Urine Appearance Cloudy (CLEAR) A 10/12/24 09:22 Urine pH 5.0 (5-7) 10/12/24 09:22 Ur Specific [place] 1.035 (1.005-1.030) H 10/12/24 09:22 Urine Protein 2+ (Negative) A 10/12/24 09:22 Urine Glucose (UA) Negative (Normal) 10/12/24 09:22 Urine Ketones 1+ (Negative) H 10/12/24 09:22 Urine Blood Negative (Negative) 10/12/24 09:22 Urine Nitrate Negative (Negative) 10/12/24 09:22 Urine Bilirubin 1+ (Negative) H 10/12/24 09:22 Urine Urobilinogen 2.0 mg/dL (Negative) H 10/12/24 09:22 Ur Leukocyte Esterase 1+ (Negative) A 10/12/24 09:22 Urine RBC None /hpf (0-2) 10/12/24 09:22 Urine WBC 5-10 /hpf (0-5) H 10/12/24 09:22 Ur Squamous Epith Cells 0-4 /hpf (0-5) H 10/12/24 09:22 Amorphous Sediment Not Reportable 10/12/24 09:22 Urine Bacteria 1+ /hpf (NONE) H 10/12/24 09:22 Coarse Granular Casts 0-4 /lpf H 10/12/24 09:22 Vancomycin Trough 10.5 ug/mL (10-15) 10/15/24 17:07 Vitals Last Vital Signs Temp 98.4 F 10/18/24 08:00 Pulse 76 10/18/24 08:00 Resp 17 10/18/24 08:00 BP 158/93 10/18/24 08:00 Pulse Ox 95 10/18/24 08:00 O2 Del Method Room Air 10/18/24 08:00 Discharge Plan Discharge Patient Disposition: Home Condition: Stable Prescriptions: New amlodipine 10 mg Tablet 10 mg PO DAILY 30 Days Qty: 30 0RF clonidine HCl 0.1 mg Tablet 0.1 mg PO BID 30 Days Qty: 60 0RF amoxicillin-pot clavulanate 875-125 mg tablet 1 tab PO BID 10 Days Qty: 20 0RF meloxicam 7.5 mg tablet 7.5 mg PO DAILY 7 Days Qty: 7 0RF polyethylene glycol 3350 [Miralax] 17 gram powder in packet 17 g PO DAILY PRN (Reason: for constipation) Qty: 30 0RF Continued levothyroxine 100 mcg capsule 100 mcg PO DAILY lisinopril-hydrochlorothiazide 20-12.5 mg tablet 1 tab PO DAILY famotidine 20 mg tablet 20 mg PO DAILY alprazolam 1 mg tablet 1 mg PO TID PRN (Reason: Anxiety) tamsulosin 0.4 mg capsule 0.4 mg PO DAILY tizanidine 4 mg tablet 4 mg PO TID PRN (Reason: Muscle Spasticity) Qty: 90 3RF Rx Instructions: TAKE 1 TABLET BY MOUTH THREE TIMES DAILY NEEDED FOR muscle spasticity Gamunex-C 40 gram/400 mL (10 %) solution See Rx Instructions IV .COMPLEX 360 Days Rx Instructions: intravenously; 500mg/kg/per day for 2 days & every 3 weeks thereafter mirabegron [Myrbetriq] 25 mg Tablet Extended Release 24 Hr 25 mg PO DAILY duloxetine 30 mg capsule,delayed release(DR/EC) 30 mg PO DAILY Rx Instructions: take 1 capsule BY MOUTH EVERY DAY ergocalciferol (vitamin D2) [Vitamin D2] 1,250 mcg (50,000 unit) capsule 1,250 mcg PO Q7D tramadol 50 mg tablet 100 mg PO Q6H PRN (Reason: Pain) finasteride 5 mg tablet 5 mg PO DAILY Glucosamine Chondroitin 550-30-1 mg Capsule 1 cap PO BID Discontinued trimethoprim 100 mg tablet 100 mg PO DAILY ibuprofen 800 mg tablet 800 mg PO TID PRN (Reason: Pain) Discharge Orders: Discharge Order (Routine); Ordered 10/18/24 Ordered By: Cristian Jimenez Referrals: Almas Armstrong MD [Physician] - (2 weeks) Man Vicente MD [Primary Care Provider] - Discharge Diet: GI Soft Discharge Activity: Limit activity as instructed Patient Instructions: Colostomy Care (DC), GI (Gastrointestinal) Soft Diet (DC), Opioid Safety Activity Restrictions/Additional Instructions: General Surgery instructions: Walk is much as possible, this will speed up your recovery. Return to the hospital you have fever, chills severe abdominal pain that is getting worse over time or purulent or feculent discharge from your wound. The your medication as indicated, if you decide to take opioids please take a stool softener daily to prevent constipation. No heavy lifting, be careful when you get out of bed do not put a lot of effort into your abdominal wall Please follow GI soft diet Please continue daily dressing change, the wound needs to be packed with half- inch plain packing and cover with dressing. Ostomy care as instructed by nurses. -If you notice that your blood pressure is starting to come down and feel lightheaded and your systolic blood pressures less than 90 and your diastolic blood pressure is less than 60, I would stop using the clonidine -Please follow-up with primary care provider in 1 week for blood pressure check -If any recurrent abdominal pain, fevers please go to the emergency room Discharge Attestations Time Spent in Discharge Care*: greater than 30 min Quality Metrics Clinical Quality Measures [ No reported AMI, CVA or VTE this stay] Coding Level of Care Code 16561 Total time (in minutes) for Discharge: 45 Diagnoses Perforated diverticulum of large intestine K57.20 Peritonitis K65.9 Sigmoid diverticulitis K57.32
--- NOTE | 2024-10-18 12:00 | PC.NURSE ---
Calls our home health on-call to notify of discharge. Steff Garnica, person on-call, does not answer.
[2024-10-18] MEDS: hydroCHLOROthiazide 25 mg Tablet 12.5 MG PO (12:19)
[2024-10-18] MEDS: cloNIDine 0.1 mg Tablet PO (12:19)
[2024-10-18] MEDS: amlodipine 10 mg Tablet PO (12:19)
--- NOTE | 2024-10-18 12:28 | PC.NURSE ---
Called Sharonda at [facility] to cancel Oxycodone per patient request. States he struggled after receiving a dose of Oxy last night. Would like to take Tramadol he has at home for pain control. Dr. Jimenez aware of situation.
--- NOTE | 2024-10-18 13:09 | PC.NURSE ---
Pt self catheterizes after allen removal. Reports no issues. IVs out. Discharge teaching completed.
== END 2024-10-18 13:50 | disposition home or self-care (01) | DRG 329 ==
LOC: ER 17:41 → OPS 20:30 → ICU 10-13 00:14 → MEDSURG 10-13 20:11
PROVIDERS: Hospitalist; Physician Assistant; Admitting Provider Surgery; Emergency Provider Family Medicine; PCP Family Medicine; Visit Provider Family Medicine
PROC: (CPT 49000; principal; 2024-10-12 21:30)
PROC: (CPT 44320; 2024-10-12 21:30)
DX: K57.20 Diverticulitis of large intestine with perforation and abscess without bleeding (principal); K65.1 Peritoneal abscess; N17.0 Acute kidney failure with tubular necrosis; G65.0 Sequelae of Guillain-Barre syndrome; N31.9 Neuromuscular dysfunction of bladder, unspecified; I10 Essential (primary) hypertension; E03.9 Hypothyroidism, unspecified; M54.2 Cervicalgia; R00.0 Tachycardia, unspecified; N40.1 Benign prostatic hyperplasia with lower urinary tract symptoms; F32.A Depression, unspecified; F41.9 Anxiety disorder, unspecified; M54.9 Dorsalgia, unspecified; G89.29 Other chronic pain; G62.9 Polyneuropathy, unspecified; Z96.652 Presence of left artificial knee joint; Z87.440 Personal history of urinary (tract) infections; Z79.890 Hormone replacement therapy; Z79.899 Other long term (current) drug therapy; Z88.5 Allergy status to narcotic agent; Z96.82 Presence of neurostimulator; Z87.891 Personal history of nicotine dependence
CPT/HCPCS: 36415; 36416; 51702; 51798; 71045; 74176; 80048; 80053; 80202; 81001; 82962; 83605; 83690; 83735; 84100; 84145; 85025; 86140; 87040; 87070; 87075; 87205; 88309; 96372; J0131; J0330; J0360; J0744; J1100; J1171; J1650; J1885; J2060; J2248; J2250; J2270; J2405; J2470; J2543; J2704; J3010; J3370; J3372; J3490; J7030; J7042; J9999

== ENCOUNTER 2024-11-20 08:00 | Oncology outpatient (recurring) (ONCR) | payer BC, SELFPAY ==
[2024-11-18] MEDS: acetaminophen 325 mg Tablet 650 MG PO (08:11)
[2024-11-18] MEDS: diphenhydrAMINE 50 mg/mL SDV 1mL IVP (08:11)
[2024-11-18 08:30] VITALS: BP 149/103; PULSE 87; RESP 16; TEMP 36.6; O2SAT 98
[2024-11-18] MEDS: FLEXIBLE CONTAINER IV (08:34)
[2024-11-18] MEDS: IMMUNE GLOBULIN IV (08:34)
[2024-11-18 09:45] VITALS: BP 143/86; PULSE 87; RESP 16; TEMP 36.6; O2SAT 96
[2024-11-18 11:16] VITALS: BP 133/87; PULSE 83; RESP 16; TEMP 36.4; O2SAT 97
[2024-11-18 11:32] VITALS: BP 133/87; PULSE 83; RESP 16; TEMP 36.4; O2SAT 97
[2024-11-19 08:05] VITALS: BP 148/104
[2024-11-19 08:30] VITALS: BP 158/108
[2024-11-19] MEDS: sodium chloride 0.9% 250 ML 75 ML IV (08:39)
[2024-11-19] MEDS: acetaminophen 325 mg Tablet 650 MG PO (08:42)
[2024-11-19] MEDS: diphenhydrAMINE 50 mg/mL SDV 1mL IVP (08:42)
[2024-11-19 09:00] VITALS: BP 148/104
[2024-11-19 09:50] VITALS: BP 162/110
[2024-11-19 11:54] VITALS: BP 162/110; PULSE 88; RESP 18; TEMP 36.6; O2SAT 98
[2024-11-20 07:39] VITALS: BP 162/126
[2024-11-20 08:45] VITALS: BP 149/108
[2024-11-20] MEDS: diphenhydrAMINE 50 mg/mL SDV 1mL IVP (10:02)
[2024-11-20] MEDS: acetaminophen 325 mg Tablet 650 MG PO (10:02)
[2024-11-20 10:15] VITALS: BP 141/95; PULSE 67; RESP 17; TEMP 35.8; O2SAT 99
[2024-11-20] MEDS: FLEXIBLE CONTAINER IV (10:15)
[2024-11-20] MEDS: IMMUNE GLOBULIN IV (10:15)
[2024-11-20 11:02] VITALS: BP 140/100; PULSE 67; RESP 17; TEMP 36.1; O2SAT 96
[2024-11-20 12:05] VITALS: BP 142/98; PULSE 68; RESP 16; TEMP 36; O2SAT 95
[2024-11-20 12:34] VITALS: BP 146/101; PULSE 72; RESP 17; TEMP 36.4; O2SAT 98
== END 2024-12-09 23:59 | disposition home or self-care (01) ==
PROVIDERS: PCP Family Medicine; Visit Provider Internal Medicine
DX: Z53.9 Procedure and treatment not carried out, unspecified reason; G61.81 Chronic inflammatory demyelinating polyneuritis; Z79.620 Long term (current) use of immunosuppressive biologic
CPT/HCPCS: 96365; 96366; 96375; J1200; J1561; J7050; J9999

== ENCOUNTER 2024-12-09 09:54 | Outpatient (CLI) | payer BC, SELFPAY ==
[2024-12-09 11:04] LABS: Prostate Specific Antigen 0.176 ng/mL (0-4)
== END 2024-12-09 09:55 | disposition home or self-care (01) ==
PROVIDERS: PCP Family Medicine; Visit Provider Urology
DX: Z12.5 Encounter for screening for malignant neoplasm of prostate (principal)
CPT/HCPCS: 36415; 84153

== ENCOUNTER 2024-12-15 10:48 | Outpatient (CLI) | payer BC, SELFPAY | END 2024-12-15 10:49 | disposition home or self-care (01) | PROVIDERS: PCP Family Medicine; Visit Provider Family Medicine | DX: I10 Essential (primary) hypertension (principal) | CPT/HCPCS: 82088; 84244 ==

== ENCOUNTER 2025-01-07 12:00 | Oncology outpatient (recurring) (ONCR) | payer BC, SELFPAY ==
[2024-12-16] MEDS: acetaminophen 325 mg Tablet 650 MG PO (12:24)
[2024-12-16] MEDS: diphenhydrAMINE 50 mg/mL SDV 1mL IVP (12:25)
[2024-12-16 12:39] VITALS: BP 145/91; PULSE 58; RESP 17; TEMP 36.7; O2SAT 92
[2024-12-16] MEDS: IMMUNE GLOBULIN IV (12:39)
[2024-12-16] MEDS: FLEXIBLE CONTAINER IV (12:39)
[2024-12-16 13:00] VITALS: BP 148/95; PULSE 86; RESP 17; TEMP 36.6; O2SAT 97
[2024-12-16 13:46] VITALS: BP 145/89; PULSE 82; RESP 17; TEMP 36.6; O2SAT 96
[2024-12-16 15:10] VITALS: BP 146/90; PULSE 72; RESP 17; TEMP 36.4; O2SAT 97
[2024-12-17] MEDS: diphenhydrAMINE 50 mg/mL SDV 1mL IVP (08:20)
[2024-12-17] MEDS: acetaminophen 325 mg Tablet 650 MG PO (08:20)
[2024-12-17] MEDS: IMMUNE GLOBULIN IV (08:58)
[2024-12-17] MEDS: FLEXIBLE CONTAINER IV (08:58)
[2024-12-17 17:12] VITALS: BP 140/93; PULSE 89; RESP 16; TEMP 36.8; O2SAT 98
[2025-01-06] VITALS (9 sets, daily range): BP systolic 124–166; BP diastolic 82–91; PULSE 85–112; RESP 16–18; TEMP 32.2–36.6; O2SAT 93–96
[2025-01-06] MEDS: acetaminophen 325 mg Tablet 650 MG PO (08:49)
[2025-01-06] MEDS: diphenhydrAMINE 50 mg/mL SDV 1mL IVP (08:49)
[2025-01-06] MEDS: immune globulin (Gamunex-C) 40 GM, Immune Globulin (Gamunex-C) 20 GM, immune globulin (... IV (09:40)
[2025-01-07] MEDS: acetaminophen 325 mg Tablet 650 MG PO (08:25)
[2025-01-07] MEDS: diphenhydrAMINE 50 mg/mL SDV 1mL IVP (08:25)
[2025-01-07] MEDS: FLEXIBLE CONTAINER IV (08:26)
[2025-01-07] MEDS: IMMUNE GLOBULIN IV (08:26)
[2025-01-07 08:30] VITALS: BP 140/88; PULSE 108; RESP 18; TEMP 36.5; O2SAT 97
[2025-01-07 11:19] VITALS: BP 142/94; PULSE 93; RESP 18; TEMP 36.6; O2SAT 97
--- NOTE | 2025-01-07 11:39 | CTR_ITS ---
PROCEDURE INFORMATION: Exam: CT Abdomen Without And With Contrast Exam date and time: 01/07/2025 11:55 AM Age: 49 years old Clinical indication: Abnormal findings; Abnormal radiologic finding of the abdomen; Radiologic exam and body structure: CT kidney stone; Prior surgery; Surgery date: 1-6 months; Surgery type: Colon resection 12 weeks ago , gb; HX of colon cancer; Additional info: Adrenal mass TECHNIQUE: Imaging protocol: Computed tomography of the abdomen without and with contrast. Radiation optimization: All CT scans at this facility use at least one of these dose optimization techniques: automated exposure control; mA and/or kV adjustment per patient size (includes targeted exams where dose is matched to clinical indication); or iterative reconstruction. Contrast material: OMNI 350; Contrast volume: 100 ml; Contrast route: INTRAVENOUS (IV); COMPARISON: CT kidney stone [id number] 10/12/2024 11:15 AM RADIATION DOSE METRICS: Total DLP (mGy-cm): 2329.94 FINDINGS: Lungs: Small amount of scarring anterior left lung base with prior exam. No significant infiltrate or effusion is seen within the visualized lung bases. Liver: Mild fatty liver which is upper limits of normal in size. Liver shows no focal abnormality. Gallbladder and biliary ducts: Previous cholecystectomy. No significant biliary ductal dilatation. Pancreas: Normal. No ductal dilation. Spleen: Upper limits of normal size of the spleen with scattered small calcified granulomas. Adrenal glands: Very small rounded nodule tip of the right adrenal gland and upper left adrenal gland appears unchanged with prior contrast CT abdomen/pelvis 10/01/2023. Also, appearance on the noncontrast, early phase contrast, and delayed phase contrast images favor small benign adenomas. No suspicious adrenal mass. Kidneys: Small rounded hypodense fluid density focus noted midpole cortex of the left kidney and a tiny rounded hypodense focus noted posterior midpole cortex of the right kidney, unchanged with prior exam 10/01/2023 and suggesting benign cysts. No urinary tract stone or obstructive uropathy or perinephric stranding is seen. Bilateral nephrograms noted as well as bilateral excretion on the delayed images. Stomach and bowel: A colostomy is seen within the anterior lower left abdomen and visualized upper left pelvis. Visualized bowel within the abdomen appears unremarkable. No bowel dilatation or obstruction. No significant bowel thickening within the abdomen. No mesenteric stranding. Intraperitoneal space: No free fluid or ascites is seen within the abdomen. No free air is seen within the abdomen. Vasculature: Visualized abdominal aorta is unremarkable in caliber. No abdominal aortic aneurysm is seen. Visualized major vascular structures appear patent. Lymph nodes: No periaortic or retroperitoneal lymphadenopathy is seen. Bones/joints: Mild spondylotic change within the visualized spine. Soft tissues: Unremarkable. CT/CT abdomen wo/w con [id number] IMPRESSION: 1. Previous cholecystectomy. 2. Mild fatty liver. 3. Very small rounded nodule tip of the right adrenal gland and upper left adrenal gland with CT appearance favoring small adenomas and without significant change from 2023 exam which would also favor benign change or small adenomas. No suspicious adrenal mass. 4. Renal cysts, unchanged. 5. Colostomy anterior lower left abdomen. COMMENTS: Consistent with the [employer]'s Incidental Findings Committee white paper (J Am Denisha Radiol 2018): Any incidental renal lesion less than 1 cm or classified as too small to characterize, or any incidental cystic renal lesion characterized as simple-appearing, is likely benign. No follow-up imaging is recommended for these lesions per consensus recommendations based on imaging criteria.
[2025-01-07] MEDS: iohexol 350 mg/mL 500 mL Btl (per mL) IV (12:00)
== END 2025-01-09 23:59 | disposition home or self-care (01) ==
LOC: ONCMED 01-08 08:58
PROVIDERS: PCP Family Medicine; Visit Provider Internal Medicine
DX: Z53.9 Procedure and treatment not carried out, unspecified reason; G61.81 Chronic inflammatory demyelinating polyneuritis; N28.89 Other specified disorders of kidney and ureter; K76.0 Fatty (change of) liver, not elsewhere classified; N28.1 Cyst of kidney, acquired; Z90.49 Acquired absence of other specified parts of digestive tract; Z79.620 Long term (current) use of immunosuppressive biologic
CPT/HCPCS: 74170; 96365; 96366; 96375; J1200; J1561; J9999

== ENCOUNTER 2025-01-28 07:53 | Oncology outpatient (recurring) (ONCR) | payer BC, SELFPAY ==
[2025-01-27] MEDS: acetaminophen 325 mg Tablet 650 MG PO (08:34)
[2025-01-27] MEDS: diphenhydrAMINE 50 mg/mL SDV 1mL IVP (08:36)
[2025-01-27] MEDS: sodium chloride 0.9% 250 ML 75 ML IV (08:36)
[2025-01-27 08:40] VITALS: BP 114/81; PULSE 96; RESP 18; TEMP 36.6; O2SAT 96
[2025-01-27] MEDS: FLEXIBLE CONTAINER IV (09:31)
[2025-01-27] MEDS: IMMUNE GLOBULIN IV (09:31)
[2025-01-27 09:45] VITALS: BP 108/72; PULSE 96; RESP 17; TEMP 36.1; O2SAT 96
[2025-01-27 10:55] VITALS: BP 127/86; PULSE 80; RESP 17; TEMP 36.6; O2SAT 94
[2025-01-27 11:30] VITALS: BP 130/88; PULSE 83; RESP 16; TEMP 36.6; O2SAT 96
[2025-01-27 12:13] VITALS: BP 131/88; PULSE 82; RESP 17; TEMP 36.6; O2SAT 97
[2025-01-28] MEDS: sodium chloride 0.9% 250 ML 75 ML IV (08:38)
[2025-01-28] MEDS: acetaminophen 325 mg Tablet 650 MG PO (08:39)
[2025-01-28] MEDS: diphenhydrAMINE 50 mg/mL SDV 1mL IVP (08:39)
[2025-01-28 09:00] VITALS: BP 130/89; PULSE 87; RESP 18; TEMP 36.6; O2SAT 97
[2025-01-28] MEDS: FLEXIBLE CONTAINER IV (09:00)
[2025-01-28] MEDS: IMMUNE GLOBULIN IV (09:00)
[2025-01-28 09:20] VITALS: BP 144/96; PULSE 85; RESP 17; TEMP 36.6; O2SAT 95
[2025-01-28 10:10] VITALS: BP 135/84; PULSE 80; RESP 17; TEMP 36.4; O2SAT 97
[2025-01-28 16:01] VITALS: BP 142/88; PULSE 85; RESP 18; TEMP 36.4; O2SAT 98
== END 2025-01-28 23:59 | disposition home or self-care (01) ==
PROVIDERS: PCP Family Medicine; Visit Provider Internal Medicine
DX: G61.81 Chronic inflammatory demyelinating polyneuritis (principal); Z79.620 Long term (current) use of immunosuppressive biologic; Z79.899 Other long term (current) drug therapy
CPT/HCPCS: 96365; 96366; 96375; J1200; J1561; J7050; J9999

== ENCOUNTER 2025-02-22 13:06 | Outpatient (CLI) | payer BC, SELFPAY ==
[2025-02-22 14:26] LABS: Alanine Aminotransferase 41 U/L (0-41); Albumin Level 4.1 g/dL (3.5-5.2); Alkaline Phosphatase 107 U/L (40-130); Anion Gap 15.3 (5-19); Aspartate Amino Transferase 36 U/L (0-40); Blood Urea Nitrogen 21 mg/dL (6-20); Calcium 9.4 mg/dL (8.5-10.5); Carbon Dioxide 27 mmol/L (22-29); Chloride 103 mmol/L (98-107); Free T4 Free Thyroxine 1.12 ng/dL (0.82-1.77); Globulin 5.2 g/dL (1.3-4.6); Glucose 87 mg/dL (65-115); Osmolality Calculated 294 mOsm/kg (285-295); Potassium 4.3 mmol/L (3.5-5.1); Sodium 141 mmol/L (136-145); Thyroid Stimulating Hormone 1.07 uIU/mL (0.27-4.20); Total Protein 9.3 g/dL (6.6-8.7)
== END 2025-02-22 13:07 | disposition home or self-care (01) ==
PROVIDERS: PCP Family Medicine; Visit Provider Internal Medicine
DX: E27.8 Other specified disorders of adrenal gland (principal); R79.89 Other specified abnormal findings of blood chemistry; E03.9 Hypothyroidism, unspecified
CPT/HCPCS: 36415; 80053; 84439; 84443

== ENCOUNTER 2025-03-10 08:00 | Oncology outpatient (recurring) (ONCR) | payer BC, SELFPAY ==
[2025-02-17] MEDS: diphenhydrAMINE 50 mg/mL SDV 1mL IVP (08:27)
[2025-02-17 09:00] VITALS: BP 127/77; PULSE 90; RESP 17; TEMP 36.4; O2SAT 98
[2025-02-17] MEDS: FLEXIBLE CONTAINER IV (09:03)
[2025-02-17] MEDS: IMMUNE GLOBULIN IV (09:03)
[2025-02-17 09:15] VITALS: BP 122/78; PULSE 89; RESP 16; TEMP 36.1; O2SAT 99
[2025-02-17 11:30] VITALS: BP 121/71; PULSE 81; RESP 18; TEMP 36.3; O2SAT 99
[2025-02-18 08:06] VITALS: PULSE 88; RESP 16; TEMP 36.4
[2025-02-18] MEDS: diphenhydrAMINE 50 mg/mL SDV 1mL IVP (08:13)
[2025-02-18 08:50] VITALS: BP 128/88; PULSE 88; RESP 16; TEMP 36.6; O2SAT 96
[2025-02-18] MEDS: IMMUNE GLOBULIN IV (08:50)
[2025-02-18] MEDS: FLEXIBLE CONTAINER IV (08:50)
[2025-02-18 09:14] VITALS: BP 125/84; PULSE 81; RESP 16; TEMP 36.6; O2SAT 95
[2025-02-18 09:20] VITALS: BP 125/84; PULSE 81; RESP 16; TEMP 36.6; O2SAT 95
[2025-02-18 09:35] VITALS: BP 127/88; PULSE 78; RESP 16; TEMP 36.6; O2SAT 99
[2025-02-18 10:40] VITALS: BP 138/79; PULSE 81; RESP 16; TEMP 36.3; O2SAT 98
[2025-02-28 13:40] LABS: Metanephrines Total Urine 3000 mL; Urine Metanephrines Total 1277 mcg/24 h (224-832)
[2025-03-01 15:00] LABS: Calculated Total (E+NE) 306 mcg/24 h (26-121)
--- NOTE | 2025-03-09 08:45 | PC.PHAR ---
JAKUB SAINI CALLED [facility] OFFICE THIS MORNING TO CLARIFY GAMUNEX DOSE. DUE TO WHITE BAGGING WE HAVE CONFLICTING DOSE ORDERS, ONE IS WEIGHT BASED AND ONE IS FLAT DOSE OF 80GM. DR BENAVIDEZ STATES HE WANTS PATIENT TO HAVE 400MG/KG/DAY X 2 DAYS, REPEAT EVERY 21 DAYS. I WILL UPDATE THE TREATMENT PLAN ACCORDINGLY. JAKUB WILL NOTE THIS CONVERSATION ON HER SIDE WELL.
[2025-03-09] MEDS: diphenhydrAMINE 50 mg/mL SDV 1mL 25 MG IVP (09:34)
[2025-03-09 10:08] VITALS: BP 122/77; PULSE 82; RESP 18; TEMP 36.3; O2SAT 96
[2025-03-09 10:35] VITALS: BP 117/80; PULSE 77; RESP 17; TEMP 36.4; O2SAT 97
[2025-03-09 10:50] VITALS: BP 113/79; PULSE 82; RESP 17; TEMP 36.3; O2SAT 97
[2025-03-09 12:13] VITALS: BP 133/88; PULSE 76; RESP 16; TEMP 36.6; O2SAT 98
[2025-03-09 12:46] VITALS: BP 124/85; PULSE 75; RESP 17; TEMP 36.6; O2SAT 99
[2025-03-10] MEDS: diphenhydrAMINE 50 mg/mL SDV 1mL 25 MG IVP (08:37)
[2025-03-10 08:38] VITALS: BP 140/82; PULSE 102; RESP 18; TEMP 36.6; O2SAT 98
[2025-03-10 09:00] VITALS: BP 154/83; PULSE 102; RESP 17; TEMP 36.7; O2SAT 97
== END 2025-03-11 23:59 | disposition home or self-care (01) ==
PROVIDERS: PCP Family Medicine; Visit Provider Internal Medicine
DX: Z53.9 Procedure and treatment not carried out, unspecified reason; G61.81 Chronic inflammatory demyelinating polyneuritis; Z79.620 Long term (current) use of immunosuppressive biologic
CPT/HCPCS: 82384; 83835; 96365; 96366; 96375; J1200; J1561; J7050; J9999

== ENCOUNTER 2025-04-01 12:00 | Oncology outpatient (recurring) (ONCR) | payer BC, SELFPAY ==
--- NOTE | 2025-03-19 13:00 | PETR_ITS ---
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 Then, PET images were obtained. Attenuation corrected images were constructed using the CT scan. Fused images of PET and CT were reviewed. The standardized uptake values (SUV) reported below are maximum values within a region of interest, expressed in gm/ml. Exam includes orbital meatal line to mid-thigh. SUV normalization method: BodyWeight Radiopharmaceutical: 12.77 mCi F-18 FDG (Fluorodeoxyglucose), IV. Time of imaging post radiopharmaceutical administration: 58 minutes Injection site: right ac COMPARISON: CT abdomen wo/w con [id number] 01/07/2025 11:55 AM FINDINGS: Tubes, catheters and devices: Right sacral stimulator in place. Brain: Visualized brain has normal physiologic uptake. Pharynx: No abnormal uptake. Larynx: No abnormal uptake. Lungs, pleura and trachea: No abnormal uptake. Left upper lobe calcified granuloma. Heart: Normal physiologic uptake. Coronary arteries: [id number] coronary artery calcification. Mediastinal space: No abnormal uptake. Liver: No abnormal uptake. Diffuse hypoattenuation compatible with steatosis. Gallbladder and biliary ducts: No abnormal uptake. Prior cholecystectomy. Pancreas: No abnormal uptake. Spleen: No abnormal uptake. Calcified granulomata. Adrenal glands: No abnormal uptake. Kidneys and ureters: Normal physiologic uptake. Simple appearing left renal cyst. Stomach and bowel: No suspicious abnormal uptake. Stable partial sigmoid colon resection with left abdominal colostomy and associated uptake that is likely inflammatory. Vasculature: No abnormal uptake. Mild systemic atherosclerotic calcification without aortic aneurysm. Lymph nodes: No abnormal uptake. No lymphadenopathy in the head, neck, chest, abdomen, pelvis, and extremities. Left mediastinal and hilar calcified nodes in keeping with sequela of old granulomatous disease. Skeleton: No suspicious abnormal uptake in the visualized axial and appendicular skeleton. Degenerative change along the spine, shoulders and sacroiliac joints. Bilateral L5 pars interarticularis defects. FDG uptake at the right greater trochanter without underlying CT abnormality is likely inflammatory. Soft tissues: No suspicious abnormal uptake in the visualized head, neck, chest, abdomen, pelvis, and extremities. Ventral abdominal wall postsurgical scarring with associated focus of uptake that is likely postsurgical inflammation. Small fat containing bilateral inguinal hernias. FDG uptake along the right masseter without underlying CT abnormality is likely benign physiologic activation. METRICS: Mediastinal blood pool: SUV mean 2.0 Liver uptake: SUV mean 2.3 PET/PET skull to thigh INIT [id number] IMPRESSION: 1. Partial sigmoid colon resection without evidence of residual or metastatic disease. 2. Left colostomy with associated FDG uptake that is likely inflammatory. 3. Hepatic steatosis. 4. Additional chronic and incidental findings as above.
[2025-03-31] MEDS: diphenhydrAMINE 50 mg/mL SDV 1mL IVP (09:10)
[2025-03-31 09:51] VITALS: BP 139/90; PULSE 90; RESP 18; TEMP 36.6; O2SAT 96
[2025-03-31] MEDS: FLEXIBLE CONTAINER IV (09:53)
[2025-03-31] MEDS: IMMUNE GLOBULIN IV (09:53)
[2025-03-31 12:28] VITALS: BP 143/100; PULSE 85; RESP 18; TEMP 36.2; O2SAT 98
[2025-04-01] MEDS: diphenhydrAMINE 50 mg/mL SDV 1mL IVP (08:44)
[2025-04-01 09:30] VITALS: BP 148/94; PULSE 87; TEMP 36.3; O2SAT 96
[2025-04-01] MEDS: FLEXIBLE CONTAINER IV (09:30)
[2025-04-01] MEDS: IMMUNE GLOBULIN IV (09:30)
[2025-04-01 09:45] VITALS: BP 148/108; PULSE 85; TEMP 36.2; O2SAT 97
[2025-04-01 11:58] VITALS: BP 148/99; PULSE 97; TEMP 36.6; O2SAT 98
[2025-04-01 16:31] VITALS: BP 148/99; PULSE 97; TEMP 36.6; O2SAT 98
== END 2025-04-01 23:59 | disposition home or self-care (01) ==
PROVIDERS: PCP Family Medicine; Visit Provider Internal Medicine
DX: G61.81 Chronic inflammatory demyelinating polyneuritis; Z79.620 Long term (current) use of immunosuppressive biologic; Z79.899 Other long term (current) drug therapy; Z53.9 Procedure and treatment not carried out, unspecified reason
CPT/HCPCS: 78815; 96365; 96366; 96375; A9552; J1200; J1561; J7050; J9999

== ENCOUNTER 2025-04-22 08:00 | Oncology outpatient (recurring) (ONCR) | payer BC, SELFPAY ==
[2025-04-21] VITALS (9 sets, daily range): BP systolic 124–137; BP diastolic 72–87; PULSE 72–80; RESP 17–18; TEMP 36.2–36.6; O2SAT 95–99
[2025-04-21] MEDS: diphenhydrAMINE 50 mg/mL SDV 1mL IVP (08:45)
[2025-04-21] MEDS: FLEXIBLE CONTAINER IV (09:11)
[2025-04-21] MEDS: IMMUNE GLOBULIN IV (09:11)
[2025-04-22] MEDS: diphenhydrAMINE 50 mg/mL SDV 1mL IVP (08:22)
[2025-04-22] MEDS: IMMUNE GLOBULIN IV (09:01)
[2025-04-22] MEDS: FLEXIBLE CONTAINER IV (09:01)
== END 2025-05-11 23:59 | disposition home or self-care (01) ==
PROVIDERS: PCP Family Medicine; Visit Provider Internal Medicine
DX: G61.81 Chronic inflammatory demyelinating polyneuritis (principal); Z79.620 Long term (current) use of immunosuppressive biologic; Z79.899 Other long term (current) drug therapy
CPT/HCPCS: 96365; 96366; 96375; J1200; J1561; J7050; J9999

== ENCOUNTER → 2025-05-04 08:33 | Outpatient (BNVA) | payer BC, SELFPAY | PROVIDERS: PCP Family Medicine; Visit Provider Student in an Organized Health Care Education/Training Program | DX: Z96.652 Presence of left artificial knee joint (principal); Z47.1 Aftercare following joint replacement surgery; Z01.89 Encounter for other specified special examinations | CPT/HCPCS: 73560; 73565 ==

== ENCOUNTER → 2025-05-25 13:19 | Outpatient (BNVA) | payer BC, SELFPAY | PROVIDERS: PCP Family Medicine; Visit Provider Internal Medicine | DX: E11.9 Type 2 diabetes mellitus without complications (principal); E03.9 Hypothyroidism, unspecified; E27.8 Other specified disorders of adrenal gland; R79.89 Other specified abnormal findings of blood chemistry | CPT/HCPCS: 36415; 80053; 82310; 82330; 83735; 83970; 84439; 84443 ==

== ENCOUNTER 2025-06-03 07:55 | Oncology outpatient (recurring) (ONCR) | payer BC, SELFPAY ==
[2025-05-12] MEDS: diphenhydrAMINE 50 mg/mL SDV 1mL IVP (08:31)
[2025-05-12 08:54] VITALS: BP 150/86; PULSE 88; RESP 18; TEMP 36.4; O2SAT 97
[2025-05-12] MEDS: FLEXIBLE CONTAINER IV (08:54)
[2025-05-12] MEDS: IMMUNE GLOBULIN IV (08:54)
[2025-05-12 09:10] VITALS: BP 120/81; PULSE 87; RESP 17; TEMP 36.4; O2SAT 98
[2025-05-12 10:06] VITALS: BP 106/68; PULSE 89
[2025-05-12 10:37] VITALS: BP 123/69; PULSE 89; O2SAT 98
[2025-05-12 11:15] VITALS: BP 132/80; PULSE 82; RESP 18; TEMP 36.8; O2SAT 97
[2025-05-13 07:59] VITALS: BP 149/77; PULSE 104; RESP 18; TEMP 36.8; O2SAT 98
[2025-05-13] MEDS: diphenhydrAMINE 50 mg/mL SDV 1mL IVP (08:08)
[2025-05-13 09:09] VITALS: BP 126/74; PULSE 88; RESP 18; TEMP 36.3; O2SAT 97
[2025-05-13] MEDS: IMMUNE GLOBULIN IV (09:09)
[2025-05-13] MEDS: FLEXIBLE CONTAINER IV (09:09)
[2025-05-13 09:24] VITALS: BP 131/80; PULSE 86; RESP 18; TEMP 36.4; O2SAT 98
[2025-05-13 10:51] VITALS: BP 188/83; PULSE 85; RESP 17; TEMP 36.7; O2SAT 99
[2025-05-13 11:06] VITALS: BP 145/97; PULSE 80; RESP 17; TEMP 36.2; O2SAT 99
[2025-05-13 11:39] VITALS: BP 144/101; PULSE 81; RESP 18; TEMP 36.3; O2SAT 98
[2025-06-02] MEDS: diphenhydrAMINE 50 mg/mL SDV 1mL IVP (08:56)
[2025-06-02 09:05] VITALS: BP 138/86; PULSE 83; RESP 17; TEMP 36.4; O2SAT 96
[2025-06-02 09:36] VITALS: BP 122/73; PULSE 85; RESP 17; TEMP 36.4; O2SAT 95
[2025-06-02] MEDS: IMMUNE GLOBULIN IV (09:36)
[2025-06-02] MEDS: FLEXIBLE CONTAINER IV (09:36)
[2025-06-02 09:53] VITALS: BP 134/84; PULSE 75; RESP 18; TEMP 36.3; O2SAT 95
[2025-06-02 12:19] VITALS: BP 131/86; PULSE 78; RESP 18; TEMP 36.2; O2SAT 96
[2025-06-03] MEDS: diphenhydrAMINE 50 mg/mL SDV 1mL IVP (08:10)
[2025-06-03 08:39] VITALS: BP 162/83; PULSE 91; RESP 16; TEMP 36.4; O2SAT 99
[2025-06-03] MEDS: IMMUNE GLOBULIN IV (08:39)
[2025-06-03] MEDS: FLEXIBLE CONTAINER IV (08:39)
[2025-06-03 09:13] VITALS: BP 146/81; PULSE 86; RESP 17; TEMP 36.4
[2025-06-03 10:16] VITALS: BP 154/76; PULSE 80; RESP 17; TEMP 36.4; O2SAT 97
[2025-06-03 11:10] VITALS: BP 156/89; PULSE 85; RESP 17; TEMP 36.3; O2SAT 98
== END 2025-06-11 23:59 | disposition home or self-care (01) ==
PROVIDERS: PCP Family Medicine; Visit Provider Internal Medicine
DX: G61.81 Chronic inflammatory demyelinating polyneuritis (principal); Z79.899 Other long term (current) drug therapy; Z79.620 Long term (current) use of immunosuppressive biologic
CPT/HCPCS: 96365; 96366; 96375; J1200; J1561; J7050; J9999

== ENCOUNTER 2025-06-24 07:52 | Oncology outpatient (recurring) (ONCR) | payer BC, SELFPAY ==
[2025-06-23] MEDS: diphenhydrAMINE 50 mg/mL SDV 1mL IVP (08:46)
[2025-06-23 09:17] VITALS: BP 135/90; PULSE 77; TEMP 36.3; O2SAT 97
[2025-06-23] MEDS: FLEXIBLE CONTAINER IV (09:17)
[2025-06-23] MEDS: IMMUNE GLOBULIN IV (09:17)
[2025-06-23 11:41] VITALS: BP 149/96; PULSE 78; TEMP 36.4; O2SAT 98
[2025-06-23 11:42] VITALS: BP 132/80; PULSE 82; TEMP 36.2; O2SAT 98
[2025-06-24 08:00] VITALS: BP 131/90; PULSE 98; RESP 18; TEMP 36.4; O2SAT 98
[2025-06-24] MEDS: diphenhydrAMINE 50 mg/mL SDV 1mL IVP (08:20)
[2025-06-24 08:40] VITALS: BP 146/92; PULSE 87; RESP 17; TEMP 36.4; O2SAT 97
[2025-06-24] MEDS: IMMUNE GLOBULIN IV (08:40)
[2025-06-24] MEDS: FLEXIBLE CONTAINER IV (08:40)
[2025-06-24 09:10] VITALS: BP 142/89; PULSE 86; RESP 17; TEMP 36.6; O2SAT 97
[2025-06-24 09:40] VITALS: BP 143/97; PULSE 81; RESP 17; TEMP 36.4; O2SAT 98
[2025-06-24 11:22] VITALS: BP 118/95; PULSE 84; TEMP 36.2; O2SAT 98
== END 2025-07-11 23:59 | disposition home or self-care (01) ==
PROVIDERS: PCP Family Medicine; Visit Provider Internal Medicine
DX: G61.81 Chronic inflammatory demyelinating polyneuritis (principal); Z79.899 Other long term (current) drug therapy; Z79.620 Long term (current) use of immunosuppressive biologic
CPT/HCPCS: 96365; 96366; 96375; J1200; J1561; J7050; J9999

== ENCOUNTER 2025-08-03 08:00 | Oncology outpatient (recurring) (ONCR) | payer BC, SELFPAY ==
[2025-07-14 08:03] VITALS: BP 135/80; PULSE 86; RESP 20; TEMP 35.9; O2SAT 97
[2025-07-14] MEDS: diphenhydrAMINE 50 mg/mL SDV 1mL IVP (08:16)
[2025-07-14] MEDS: FLEXIBLE CONTAINER IV (08:53)
[2025-07-14] MEDS: IMMUNE GLOBULIN IV (08:53)
[2025-07-14 09:10] VITALS: BP 161/88; PULSE 80; RESP 18; TEMP 36.2; O2SAT 95
[2025-07-14 10:13] VITALS: BP 129/78; PULSE 80; RESP 18; TEMP 36.1; O2SAT 97
[2025-07-14 11:16] VITALS: BP 120/74; PULSE 81; RESP 16; TEMP 36.3; O2SAT 98
[2025-07-15] MEDS: diphenhydrAMINE 50 mg/mL SDV 1mL IVP (08:08)
[2025-07-15 09:00] VITALS: BP 107/72; PULSE 101; RESP 17; TEMP 36.4; O2SAT 97
[2025-07-15] MEDS: IMMUNE GLOBULIN IV (09:00)
[2025-07-15] MEDS: FLEXIBLE CONTAINER IV (09:00)
[2025-07-15 09:18] VITALS: BP 122/68; PULSE 87; RESP 17; TEMP 36.5; O2SAT 99
[2025-07-15 10:19] VITALS: BP 159/68; PULSE 95; RESP 17; TEMP 36.2; O2SAT 97
[2025-07-15 11:11] VITALS: BP 136/78; PULSE 82; RESP 17; TEMP 36.3; O2SAT 98
== END 2025-08-11 23:59 | disposition home or self-care (01) ==
PROVIDERS: PCP Family Medicine; Visit Provider Internal Medicine
DX: Z53.9 Procedure and treatment not carried out, unspecified reason (principal)
CPT/HCPCS: 96365; 96366; 96375; J1200; J1561; J9999